=== PATIENT | male | born 1995 | race American Indian/Alaskan Native ===

== ENCOUNTER 2017-01-17 02:03 | Emergency (ER) | payer SELFPAY ==
[2017-01-17 03:02] VITALS: BP 100/75
[2017-01-17 03:56] LABS: Basophils % (Auto) 0.9 % (0.0-1.8); Eosinophils % (Auto) 11.7 % (0.0-4.3); Hematocrit 41.8 % (35.5-45.6); Mean Corpuscular HGB Conc 31 % (32-34); Platelet Count 227 K/mm3 (140-440); Red Blood Count 6.22 M/mm3 (3.65-5.03); Red Cell Distribution Width 17.9 % (13.2-15.2); White Blood Count 6.8 K/mm3 (4.5-11.0)
[2017-01-17 03:58] LABS: Mean Corpuscular Hemoglobin 21 pg (28-32); Mean Corpuscular Volume 67 fl (84-94)
[2017-01-17 04:08] LABS: Alanine Aminotransferase 13 units/L (7-56); Albumin/Globulin Ratio 1.3 %; Alkaline Phosphatase 56 units/L (35-129); Anion Gap 14 mmol/L; Blood Urea Nitrogen 13 mg/dL (9-20); Calcium 9.2 mg/dL (8.4-10.2); Carbon Dioxide 28 mmol/L (22-30); Chloride 102.8 mmol/L (98-107); Glucose 81 mg/dL (75-100); Lipase 17 units/L (13-60); Potassium 4.3 mmol/L (3.6-5.0); Sodium 140 mmol/L (137-145); Total Protein 7.2 g/dL (6.3-8.2)
[2017-01-17 05:04] LABS: Bilirubin,Urine NEG (Negative); Blood,Urine NEG (Negative); Ketones,Urine TR mg/dL (Negative); Leukocyte Esterase,Urine NEG (Negative); Mucus,Urine 2+ /HPF; Nitrite,Urine NEG (Negative)
== END 2017-01-17 04:00 | disposition left against medical advice (07) ==
LOC: ED 02:03
DX: M54.5 Low back pain (principal); Z53.21 Procedure and treatment not carried out due to patient leaving prior to being seen by health care provider
CPT/HCPCS: 36415; 80053; 81001; 83690; 85025

== ENCOUNTER 2017-01-28 16:12 | Emergency (ER) | payer SELFPAY ==
[2017-01-28] MEDS ORDERED: BOOSTRIX IM ONE (22:31)
[2017-01-28] MEDS ORDERED: MOTRIN PO ONE (22:32)
[2017-01-28] MEDS ORDERED: TRIPLE ANTIBIOTIC TP ONE (22:33)
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
[2017-01-28 23:31] VITALS: BP 105/64
== END 2017-01-28 23:31 | disposition home or self-care (01) ==
LOC: ED 16:12
DX: S51.812A Laceration without foreign body of left forearm, initial encounter (principal); Y08.89XA Assault by other specified means, initial encounter; Y93.9 Activity, unspecified; Y99.9 Unspecified external cause status; Y92.89 Other specified places as the place of occurrence of the external cause
CPT/HCPCS: 90471; 90715; A6250

== ENCOUNTER 2018-08-07 15:58 | Emergency (ER) | payer OTHER ==
[2018-08-07] MEDS ORDERED: CLARITIN PO ONE (16:05)
[2018-08-07] MEDS ORDERED: PROVENTIL IH ONE (16:05)
[2018-08-07] MEDS ORDERED: SOLU-Medrol IM ONE (16:05)
--- NOTE | 2018-08-07 16:05 | Emergency Department Report ---
Chief Complaint: Adult Asthma Stated Complaint: ASTHMA FLARE UP Time Seen by Provider: 08/07/18 16:04 - HPI History of Present Illness: WHEEZING TO ACC - Exam Vital Signs: Vital Signs 08/07/18 16:00 Temperature 98.0 F Pulse Rate 63 Respiratory 18 Rate Blood Pressure 115/75 O2 Sat by Pulse 97 Oximetry MSE screening note: Focused history and physical exam performed. Due to findings the following was ordered: ED Disposition for MSE Condition: Stable
--- NOTE | 2018-08-07 17:26 | XRay Report ---
PROCEDURE: XR CHEST ROUTINE 2V TECHNIQUE: Frontal and lateral chest radiographs. HISTORY: WHEEZING COMPARISONS: None FINDINGS: The cardiomediastinal silhouette is normal. No consolidation. There is bronchial wall thickening. No pleural effusion. No pneumothorax. No acute osseous abnormality. IMPRESSION: Findings which can be seen in bronchitis. This document is electronically signed by Domonique Bridges., August 07 2018 05:24:56 PM ET
--- NOTE | 2018-08-07 17:49 | Emergency Department Report ---
ED Asthma HPI - General Chief Complaint: Adult Asthma Stated Complaint: ASTHMA FLARE UP Time Seen by Provider: 08/07/18 16:04 Source: patient Mode of arrival: Ambulatory Limitations: No Limitations - History of Present Illness Initial Comments: This is a 33-year-old male with a history of asthma who presents to ED complaining of asthma attack that initially started about a week ago. Patient states symptoms have gotten worse. He states intermittent cough with white mucus. She states that he has an inhaler that has no relief. MD Complaint: "asthma attack", wheezing - Related Data Previous Rx's Medication Instructions Recorded Last Taken Type Bacitracin Zinc Oint [Antibiotic 1 applicatio TP BID #1 oint...g. 01/28/17 Unknown Rx Oint] Cephalexin [Keflex] 500 mg PO BID #14 capsule 01/28/17 Unknown Rx Ibuprofen [Motrin] 800 mg PO Q8HR PRN #30 tablet 01/28/17 Unknown Rx ALBUTEROL NEB's [Proventil 0.083% 2.5 mg IH PRN #1 pack 08/07/18 Unknown Rx NEBS] Benzonatate [Tessalon Perles] 100 mg PO Q8HR #20 capsule 08/07/18 Unknown Rx Nebulizer and Compressor [Portable 1 each MC PRN #1 each 08/07/18 Unknown Rx Nebulizer System] predniSONE [Deltasone] 20 mg PO QDAY #6 tab 08/07/18 Unknown Rx Allergies Allergy/AdvReac Type Severity Reaction Status Date / Time No Known Allergies Allergy Unverified 02/28/16 09:51 ED Review of Systems ROS: Stated complaint: ASTHMA FLARE UP Other details as noted in HPI Comment: All other systems reviewed and negative ED Past Medical Hx - Past Medical History Previous Medical History?: Yes Hx Asthma: Yes - Surgical History Past Surgical History?: No - Social History Smoking Status: Never Smoker Substance Use Type: None - Medications Home Medications: Home Medications Medication Instructions Recorded Confirmed Last Taken Type Bacitracin Zinc Oint [Antibiotic 1 applicatio TP BID #1 oint...g. 01/28/17 Unknown Rx Oint] Cephalexin [Keflex] 500 mg PO BID #14 capsule 01/28/17 Unknown Rx Ibuprofen [Motrin] 800 mg PO Q8HR PRN #30 tablet 01/28/17 Unknown Rx ALBUTEROL NEB's [Proventil 0.083% 2.5 mg IH PRN #1 pack 08/07/18 Unknown Rx NEBS] Benzonatate [Tessalon Perles] 100 mg PO Q8HR #20 capsule 08/07/18 Unknown Rx Nebulizer and Compressor [Portable 1 each MC PRN #1 each 08/07/18 Unknown Rx Nebulizer System] predniSONE [Deltasone] 20 mg PO QDAY #6 tab 08/07/18 Unknown Rx ED Physical Exam - General Limitations: No Limitations General appearance: alert, in no apparent distress - Head Head exam: Present: atraumatic, normocephalic - Eye Eye exam: Present: normal appearance - ENT ENT exam: Present: mucous membranes moist - Neck Neck exam: Present: normal inspection - Respiratory Respiratory exam: Present: wheezes (bilaterally). Absent: respiratory distress, rales, rhonchi, chest wall tenderness, accessory muscle use - Cardiovascular Cardiovascular Exam: Present: regular rate, normal rhythm. Absent: systolic murmur, diastolic murmur, rubs, gallop - GI/Abdominal GI/Abdominal exam: Present: soft, normal bowel sounds - Rectal Rectal exam: Present: deferred - Extremities Exam Extremities exam: Present: normal inspection - Back Exam Back exam: Present: normal inspection - Neurological Exam Neurological exam: Present: alert, oriented X3 - Psychiatric Psychiatric exam: Present: normal affect, normal mood - Skin Skin exam: Present: warm, dry, intact, normal color. Absent: rash ED Course Vital Signs 08/07/18 08/07/18 16:00 16:24 Temperature 98.0 F Pulse Rate 63 Pulse Rate [ 81 Throughout] Respiratory 18 Rate Respiratory 18 Rate [ Throughout] Blood Pressure 115/75 O2 Sat by Pulse 97 Oximetry ED Medical Decision Making - Radiology Data Radiology results: report reviewed, image reviewed HISTORY: WHEEZING COMPARISONS: None FINDINGS: The cardiomediastinal silhouette is normal. No consolidation. There is bronchial wall thickening. No pleural effusion. No pneumothorax. No acute osseous abnormality. IMPRESSION: Findings which can be seen in bronchitis. This document is electronically signed by Srinivasan Bridges., August 07 2018 05:24:56 PM ET Transcribed By: Dictated By: SRINIVASAN NUGENT MD Electronically Authenticated By: SRINIVASAN NUGENT MD Signed Date/Time: 08/07/18 1726 - Medical Decision Making 23-year-old male presents with asthma exacerbation (Mild) ED course: Patient received a breathing treatment, prednisone, in the ED. Chest x-ray ordered, chest x-ray shows no acute findings. Patient had no respiratory distress in the ED. Post treatment evaluation: Mild wheezing heard, no use of accessory muscles, I discussed with the patient to follow up with her primary care physician. I discussed with the patient will be going home on with albuterol inhaler as well as nebulizer Vital signs are normalized, patient is saturation at 99% on room air. I discussed with the patient is symptoms worsen to return to ED immediately. Critical care attestation.: If time is entered above; I have spent that time in minutes in the direct care of this critically ill patient, excluding procedure time. ED Disposition Clinical Impression: Asthma attack, Bronchitis Disposition: DC-01 TO HOME OR SELFCARE Is pt being admited?: No Does the pt Need Aspirin: No Condition: Stable Instructions: Asthma (ED), Chronic Bronchitis (ED) Additional Instructions: Make sure to follow up with the primary care physician as discussed. Take all your medications as you've been prescribed. If you have any worsening symptoms or develop new symptoms please return to ED i mmediately. Prescriptions: predniSONE [Deltasone] 20 mg PO QDAY #6 tab Nebulizer and Compressor [Portable Nebulizer System] 1 each MC PRN #1 each ALBUTEROL NEB's [Proventil 0.083% NEBS] 2.5 mg IH PRN #1 pack Benzonatate [Tessalon Perles] 100 mg PO Q8HR #20 capsule Referrals: LIBAN PERSAUD MD [Primary Care Provider] - 3-5 Days Forms: Accompanied Note, Work/School Release Form(ED) Time of Disposition: 17:50
[2018-08-07 21:18] VITALS: BP 115/75
== END 2018-08-07 18:07 | disposition home or self-care (01) ==
LOC: ED 15:58
DX: J45.909 Unspecified asthma, uncomplicated (principal)
CPT/HCPCS: 71046; 94640; 96372; 99283; J2930

== ENCOUNTER 2018-09-02 19:19 | Emergency (ER) | payer OTHER ==
[2018-09-02] MEDS ORDERED: ATROVENT IH ONE ×2 (19:31→20:47)
[2018-09-02] MEDS ORDERED: PROVENTIL IH ONE ×2 (19:31→20:47)
--- NOTE | 2018-09-02 19:31 | Emergency Department Report ---
Chief Complaint: Dyspnea/Respdistress Stated Complaint: ASTHMA/COUGH Time Seen by Provider: 09/02/18 19:29 - HPI History of Present Illness: pt states that he has a hx of asthma states he ran out of his medication two days ago uses only the nebulizer +cough +congestion no fever + seasonal allergies, has not been taking anything no PMHx no allergies to medications non smoker non drinker no drug use MSE screening note: Focused history and physical exam performed. Due to findings the following was ordered: neb tx, CXR
--- NOTE | 2018-09-02 20:25 | XRay Report ---
PROCEDURE: XR CHEST ROUTINE 2V TECHNIQUE: PA and lateral chest radiographs were obtained. HISTORY: Cough, wheezing COMPARISONS: None. FINDINGS: Heart: Normal. Mediastinum/Vessels: Normal. Lungs/Pleural space: Normal. Bony thorax: No acute osseous abnormality. IMPRESSION: Normal examination. This document is electronically signed by Karol Gomez MD., Sep 02 2018 08:23:10 PM ET
[2018-09-02] MEDS ORDERED: DELTASONE PO ONE (20:47)
--- NOTE | 2018-09-02 21:26 | Emergency Department Report ---
ED Shortness of Breath HPI - General Chief Complaint: Dyspnea/Respdistress Stated Complaint: ASTHMA/COUGH Time Seen by Provider: 09/02/18 19:29 Source: patient Mode of arrival: Ambulatory Limitations: No Limitations - History of Present Illness Initial Comments: 23-year-old male with a past medical history of asthma presents to the Hospital complaining of shortness of breath and intermittent productive cough 2 weeks. No fever reported the patient reports spilling hot. He's been taking home nebs at home without any improvement. Denies previous history of intubations. Patient was treated here in mid July for similar symptoms. Mild pain with cough reported. PMD: None - Related Data Previous Rx's Medication Instructions Recorded Last Taken Type Bacitracin Zinc Oint [Antibiotic 1 applicatio TP BID #1 oint...g. 01/28/17 Unknown Rx Oint] Cephalexin [Keflex] 500 mg PO BID #14 capsule 01/28/17 Unknown Rx Ibuprofen [Motrin] 800 mg PO Q8HR PRN #30 tablet 01/28/17 Unknown Rx Nebulizer and Compressor [Portable 1 each MC PRN #1 each 08/07/18 Unknown Rx Nebulizer System] predniSONE [Deltasone] 20 mg PO QDAY #6 tab 08/07/18 Unknown Rx ALBUTEROL Inhaler(NF) [VENTOLIN 2 puff IH Q4HRT PRN #1 inha 09/02/18 Unknown Rx Inhaler(NF)] ALBUTEROL NEB's [Proventil 0.083% 2.5 mg IH Q4HR PRN #30 neb 09/02/18 Unknown Rx NEBS] Benzonatate [Tessalon Perles] 100 mg PO Q8HR PRN #20 capsule 09/02/18 Unknown Rx predniSONE [Deltasone] 40 mg PO QDAY 5 Days tab 09/02/18 Unknown Rx Allergies Allergy/AdvReac Type Severity Reaction Status Date / Time No Known Allergies Allergy Unverified 02/28/16 09:51 ED Review of Systems ROS: Stated complaint: ASTHMA/COUGH Other details as noted in HPI Comment: All other systems reviewed and negative ED Past Medical Hx - Past Medical History Hx Asthma: Yes - Social History Smoking Status: Never Smoker Substance Use Type: None - Medications Home Medications: Home Medications Medication Instructions Recorded Confirmed Last Taken Type Bacitracin Zinc Oint [Antibiotic 1 applicatio TP BID #1 oint...g. 01/28/17 Unknown Rx Oint] Cephalexin [Keflex] 500 mg PO BID #14 capsule 01/28/17 Unknown Rx Ibuprofen [Motrin] 800 mg PO Q8HR PRN #30 tablet 01/28/17 Unknown Rx Nebulizer and Compressor [Portable 1 each MC PRN #1 each 08/07/18 Unknown Rx Nebulizer System] predniSONE [Deltasone] 20 mg PO QDAY #6 tab 08/07/18 Unknown Rx ALBUTEROL Inhaler(NF) [VENTOLIN 2 puff IH Q4HRT PRN #1 inha 09/02/18 Unknown Rx Inhaler(NF)] ALBUTEROL NEB's [Proventil 0.083% 2.5 mg IH Q4HR PRN #30 neb 09/02/18 Unknown Rx NEBS] Benzonatate [Tessalon Perles] 100 mg PO Q8HR PRN #20 capsule 09/02/18 Unknown Rx predniSONE [Deltasone] 40 mg PO QDAY 5 Days tab 09/02/18 Unknown Rx ED Physical Exam - General Limitations: No Limitations ED Course Vital Signs 09/02/18 09/02/18 09/02/18 19:21 19:36 20:00 Temperature 98.4 F Pulse Rate 96 H Pulse Rate [ 84 Throughout] Respiratory 18 19 Rate Respiratory 22 Rate [ Throughout] Blood Pressure 139/78 O2 Sat by Pulse 98 Oximetry 09/02/18 21:07 Temperature Pulse Rate Pulse Rate [ 82 Throughout] Respiratory Rate Respiratory 19 Rate [ Throughout] Blood Pressure O2 Sat by Pulse Oximetry - Reevaluation(s) Reevaluation #1: 09/02/18 22:33 pt sx improved with mild residual wheezing. he feels good enough for d/c ED Medical Decision Making - Radiology Data Radiology results: report reviewed PROCEDURE: XR CHEST ROUTINE 2V TECHNIQUE: PA and lateral chest radiographs were obtained. HISTORY: Cough, wheezing COMPARISONS: None. FINDINGS: Heart: Normal. Mediastinum/Vessels: Normal. Lungs/Pleural space: Normal. Bony thorax: No acute osseous abnormality. IMPRESSION: Normal examination. - Medical Decision Making asthma exacerbation improved with ed tx cxr neg plan d/c, meds, f/u - Differential Diagnosis asthma, bronchitis, pneumonia, Critical Care Time: No Critical care attestation.: If time is entered above; I have spent that time in minutes in the direct care of this critically ill patient, excluding procedure time. ED Disposition Clinical Impression: Acute asthma exacerbation Disposition: - TO HOME OR SELFCARE Is pt being admited?: No Condition: Stable Instructions: Asthma (ED) Additional Instructions: Take the medication as prescribed. Follow up with your doctor or the clinic/doctor provided. Return if symptoms worsen as indicated by your disc harge instructions Prescriptions: predniSONE [Deltasone] 40 mg PO QDAY 5 Days tab ALBUTEROL NEB's [Proventil 0.083% NEBS] 2.5 mg IH Q4HR PRN #30 neb PRN Reason: Wheezing Benzonatate [Tessalon Perles] 100 mg PO Q8HR PRN #20 capsule PRN Reason: Cough ALBUTEROL Inhaler(NF) [VENTOLIN Inhaler(NF)] 2 puff IH Q4HRT PRN #1 inha PRN Reason: Wheezing Referrals: LIBAN PERSAUD MD [Primary Care Provider] - 3-5 Days Time of Disposition: 22:36
[2018-09-02 22:45] VITALS: BP 98/65
== END 2018-09-02 22:44 | disposition home or self-care (01) ==
LOC: ED 19:19
DX: J45.901 Unspecified asthma with (acute) exacerbation (principal)
CPT/HCPCS: 71046; 94644; 99283; J7512

== ENCOUNTER 2018-09-15 04:24 | Emergency (ER) | payer SELFPAY ==
[2018-09-15] MEDS ORDERED: ATROVENT IH ONE ×2 (04:29→06:59)
[2018-09-15] MEDS ORDERED: PROVENTIL IH ONE (04:29)
[2018-09-15] MEDS ORDERED: DECADRON IM ONE (04:29)
--- NOTE | 2018-09-15 04:33 | Emergency Department Report ---
<PATRICIO MONTILLA - Last Filed: 09/15/18 04:32> ED Asthma HPI - General Chief Complaint: Dyspnea/Respdistress Stated Complaint: GERARDO Time Seen by Provider: 09/15/18 04:29 Source: patient Mode of arrival: Ambulatory Limitations: No Limitations - History of Present Illness MD Complaint: "asthma attack", shortness of breath, wheezing -: days(s) (1) Asthma History: childhood onset Severity: moderate Context: ran out of meds, allergen exposure (patient is around paint and drywall) Associated Symptoms: dry cough. denies: chest pain, hemoptysis, leg edema, syncope - Related Data Previous Rx's Medication Instructions Recorded Last Taken Type Bacitracin Zinc Oint [Antibiotic 1 applicatio TP BID #1 oint...g. 01/28/17 Unknown Rx Oint] Cephalexin [Keflex] 500 mg PO BID #14 capsule 01/28/17 Unknown Rx Ibuprofen [Motrin] 800 mg PO Q8HR PRN #30 tablet 01/28/17 Unknown Rx Nebulizer and Compressor [Portable 1 each MC PRN #1 each 08/07/18 Unknown Rx Nebulizer System] predniSONE [Deltasone] 20 mg PO QDAY #6 tab 08/07/18 Unknown Rx ALBUTEROL Inhaler(NF) [VENTOLIN 2 puff IH Q4HRT PRN #1 inha 09/02/18 Unknown Rx Inhaler(NF)] ALBUTEROL NEB's [Proventil 0.083% 2.5 mg IH Q4HR PRN #30 neb 09/02/18 Unknown Rx NEBS] Benzonatate [Tessalon Perles] 100 mg PO Q8HR PRN #20 capsule 09/02/18 Unknown Rx predniSONE [Deltasone] 40 mg PO QDAY 5 Days tab 09/02/18 Unknown Rx Albuterol Sulfate [Proventil Hfa] 2 puff IH Q4HR PRN #1 hfa.aer.ad 09/15/18 Unknown Rx predniSONE [Deltasone] 50 mg PO QDAY #5 tab 09/15/18 Unknown Rx Allergies Allergy/AdvReac Type Severity Reaction Status Date / Time No Known Allergies Allergy Unverified 02/28/16 09:51 ED Review of Systems Comment: All other systems reviewed and negative ED Past Medical Hx - Past Medical History Previous Medical History?: Yes Hx Asthma: Yes - Surgical History Past Surgical History?: No - Social History Smoking Status: Never Smoker Substance Use Type: None - Medications Home Medications: Home Medications Medication Instructions Recorded Confirmed Last Taken Type Bacitracin Zinc Oint [Antibiotic 1 applicatio TP BID #1 oint...g. 01/28/17 Unknown Rx Oint] Cephalexin [Keflex] 500 mg PO BID #14 capsule 01/28/17 Unknown Rx Ibuprofen [Motrin] 800 mg PO Q8HR PRN #30 tablet 01/28/17 Unknown Rx Nebulizer and Compressor [Portable 1 each MC PRN #1 each 08/07/18 Unknown Rx Nebulizer System] predniSONE [Deltasone] 20 mg PO QDAY #6 tab 08/07/18 Unknown Rx ALBUTEROL Inhaler(NF) [VENTOLIN 2 puff IH Q4HRT PRN #1 inha 09/02/18 Unknown Rx Inhaler(NF)] ALBUTEROL NEB's [Proventil 0.083% 2.5 mg IH Q4HR PRN #30 neb 09/02/18 Unknown Rx NEBS] Benzonatate [Tessalon Perles] 100 mg PO Q8HR PRN #20 capsule 09/02/18 Unknown Rx predniSONE [Deltasone] 40 mg PO QDAY 5 Days tab 09/02/18 Unknown Rx Albuterol Sulfate [Proventil Hfa] 2 puff IH Q4HR PRN #1 hfa.aer.ad 09/15/18 Unknown Rx predniSONE [Deltasone] 50 mg PO QDAY #5 tab 09/15/18 Unknown Rx ED Physical Exam - General Limitations: No Limitations General appearance: alert, in no apparent distress - Head Head exam: Present: atraumatic, normocephalic - Eye Eye exam: Present: normal appearance, PERRL, EOMI - ENT ENT exam: Present: mucous membranes moist - Neck Neck exam: Present: normal inspection - Respiratory Respiratory exam: Present: wheezes, prolonged expiratory. Absent: normal lung sounds bilaterally, respiratory distress, rales, rhonchi, stridor - Cardiovascular Cardiovascular Exam: Present: regular rate, normal rhythm, normal heart sounds. Absent: systolic murmur, diastolic murmur, rubs, gallop - GI/Abdominal GI/Abdominal exam: Present: soft, normal bowel sounds. Absent: distended, tenderness, guarding, rebound, rigid - Rectal Rectal exam: Present: deferred - Extremities Exam Extremities exam: Present: normal inspection - Back Exam Back exam: Present: normal inspection - Neurological Exam Neurological exam: Present: alert, oriented X3 - Psychiatric Psychiatric exam: Present: normal affect, normal mood - Skin Skin exam: Present: warm, dry, intact, normal color. Absent: rash ED Disposition Clinical Impression: Acute asthma exacerbation Disposition: - TO HOME OR SELFCARE Condition: Stable Instructions: Asthma (ED) Prescriptions: predniSONE [Deltasone] 50 mg PO QDAY #5 tab Albuterol Sulfate [Proventil Hfa] 2 puff IH Q4HR PRN #1 hfa.aer.ad PRN Reason: Wheezing Referrals: PRIMARY CARE, [Primary Care Provider] - 3-5 Days [facility] [Provider Group] - 3-5 Days <ERICKSON GREENBERG - Last Filed: 09/15/18 08:53> ED Review of Systems ROS: Stated complaint: GERARDO Other details as noted in HPI ED Course Vital Signs 09/15/18 09/15/18 09/15/18 04:35 05:26 05:40 Pulse Rate [ 72 80 Bilateral Throughout] Respiratory 24 20 Rate [Bilateral Throughout] O2 Sat by Pulse 100 Oximetry 09/15/18 09/15/18 07:51 08:10 Pulse Rate [ 78 83 Bilateral Throughout] Respiratory 20 20 Rate [Bilateral Throughout] O2 Sat by Pulse Oximetry ED Medical Decision Making - Medical Decision Making 23 yo M w/ asthma exacerbation. Pt signed out to me by Dr Montilla. Upon my examination, pt had received decadron and had 1-hr neb treatment in process. CXR negative. Pt still with coarse wheezing, so mag sulfate was given. Pt required additional 5 mg albuterol/ 0.5 mg atrovent neb. Pt able to ambulate around ED with nurse. No resp distress or desaturation afterward. Pt feels much better and wants to go home. Will d/c at this time. Critical Care Time: Yes Critical care time in (mins) excluding proc time.: 35 Critical care attestation.: If time is entered above; I have spent that time in minutes in the direct care of this critically ill patient, excluding procedure time. Critical Care Time: 35 minutes ED Disposition Is pt being admited?: No Time of Disposition: :53
--- NOTE | 2018-09-15 04:49 | XRay Report ---
PROCEDURE: XR CHEST 1V AP TECHNIQUE: Chest radiograph single view. HISTORY: GERARDO COMPARISONS: None . FINDINGS: Heart: Normal. Mediastinum/Vessels: Normal. Lungs/Pleural space: Normal. Bony thorax: No acute osseous abnormality. Life support devices: None. IMPRESSION: No acute cardiopulmonary abnormality. This document is electronically signed by Yulia Montilla DO., Sep 15 2018 04:47:54 AM ET
[2018-09-15] MEDS ORDERED: MAGNESIUM SULFATE 2GM/50ML 2 GM/50 ML BAG IV ONE (06:20)
[2018-09-15] MEDS: PROVENTIL IH ONE ×2 (07:47→07:53)
[2018-09-15 09:23] VITALS: BP 118/72
== END 2018-09-15 09:25 | disposition home or self-care (01) ==
LOC: ED 04:24
DX: J45.901 Unspecified asthma with (acute) exacerbation (principal)
CPT/HCPCS: 71045; 94640; 94644; 96365; 96372; 99283; J1100; J3475

== ENCOUNTER 2018-09-27 21:10 | Emergency (ER) | payer SELFPAY ==
[2018-09-27] MEDS ORDERED: ATROVENT IH ONE (21:16)
[2018-09-27] MEDS ORDERED: DECADRON IM ONE (21:16)
[2018-09-27] MEDS ORDERED: PROVENTIL IH ONE (21:16)
[2018-09-27 21:19] VITALS: BP 126/77
[2018-09-27] MEDS ORDERED: SOLU-Medrol IM ONE (21:36)
[2018-09-27] MEDS ORDERED: DUONEB *Not for PRN Use IH ONE (21:37)
--- NOTE | 2018-09-27 22:08 | XRay Report ---
PROCEDURE: XR CHEST ROUTINE 2V TECHNIQUE: PA and lateral chest radiographs were obtained. HISTORY: wheezing, SOB, hx of asthma COMPARISONS: CXR 09/15/2018, 09/02/2018. FINDINGS: Heart: Normal. Mediastinum/Vessels: Normal. Lungs/Pleural space: There is peribronchial wall thickening bilaterally in the hilar regions, unchan ged, likely due to the history of asthma. Bony thorax: No acute osseous abnormality. IMPRESSION: No acute cardiopulmonary process seen.. No change.The peribronchial wall thickening bila terally is likely due to reactive airway disease and chronic This document is electronically signed by Mary Tadeo MD., September 27 2018 10:06:40 PM ET
--- NOTE | 2018-09-27 22:59 | Emergency Department Report ---
ED Shortness of Breath HPI - General Chief Complaint: Dyspnea/Respdistress Stated Complaint: WHEEZING/ASTHMA Source: patient Mode of arrival: Ambulatory Limitations: No Limitations - History of Present Illness Initial Comments: Patient is a 23-year-old -[place] male with a history of asthma who presents to the ED with complaint of acute onset persistent shortness of breath, wheezing and dry cough for the last 3 days. Patient states that she has a nebulizer machine at home but no medications. Patient also states that she he does not have albuterol inhaler. Patient states that in the last 12 hours the shortness of breath, wheezing and dry cough have persisted and worsened. 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 Patient denies chest pain, dizziness, fever, chills, nausea, vomiting, abdominal pain, change in vision, nasal and sinus congestion or sore throat. MD Complaint: shortness of breath, cough, "asthma attack" -: Sudden, days(s) (3) Radiation: other (None) Severity: moderate Quality: dull (and tightness) Consistency: intermittent Improves With: nothing Worsens With: coughing Known History Of: asthma Context: recent URI, allergen exposure Associated Symptoms: denies other symptoms Treatments Prior to Arrival: none - Related Data Home Oxygen Therapy: No Previous Rx's Medication Instructions Recorded Last Taken Type Bacitracin Zinc Oint [Antibiotic 1 applicatio TP BID #1 oint...g. 01/28/17 Unknown Rx Oint] Cephalexin [Keflex] 500 mg PO BID #14 capsule 01/28/17 Unknown Rx Ibuprofen [Motrin] 800 mg PO Q8HR PRN #30 tablet 01/28/17 Unknown Rx Nebulizer and Compressor [Portable 1 each MC PRN #1 each 08/07/18 Unknown Rx Nebulizer System] predniSONE [Deltasone] 20 mg PO QDAY #6 tab 08/07/18 Unknown Rx ALBUTEROL Inhaler(NF) [VENTOLIN 2 puff IH Q4HRT PRN #1 inha 09/02/18 Unknown Rx Inhaler(NF)] Albuterol Sulfate [Proventil Hfa] 2 puff IH Q4HR PRN #1 hfa.aer.ad 09/15/18 Unknown Rx predniSONE [Deltasone] 50 mg PO QDAY #5 tab 09/15/18 Unknown Rx ALBUTEROL NEB's [Proventil 0.083% 2.5 mg IH Q4HR PRN #75 neb 09/27/18 Unknown Rx NEBS] Albuterol Sulfate [Proventil Hfa] 1 - 2 puff IH Q4H PRN #1 hfa.aer.ad 09/27/18 Unknown Rx Benzonatate [Tessalon Perles] 100 mg PO Q8HR PRN #30 capsule 09/27/18 Unknown Rx predniSONE [Deltasone] 60 mg PO QDAY 5 Days #15 tab 09/27/18 Unknown Rx Allergies Allergy/AdvReac Type Severity Reaction Status Date / Time No Known Allergies Allergy Unverified 02/28/16 09:51 ED Review of Systems ROS: Stated complaint: WHEEZING/ASTHMA Other details as noted in HPI Comment: All other systems reviewed and negative Constitutional: denies: chills, fever Eyes: denies: eye pain, eye discharge, vision change ENT: denies: ear pain, throat pain Respiratory: cough, shortness of breath, wheezing Cardiovascular: denies: chest pain, palpitations Endocrine: no symptoms reported, see HPI. denies: excessive sweating, flushing, intolerance to heat, increased thirst, unexplained weight loss Gastrointestinal: denies: abdominal pain, nausea, vomiting, diarrhea Genitourinary: denies: urgency, dysuria, frequency Musculoskeletal: denies: back pain, joint swelling, arthralgia Skin: denies: rash, lesions Neurological: denies: headache, weakness, paresthesias Psychiatric: denies: anxiety, depression Hematological/Lymphatic: denies: easy bleeding, easy bruising ED Past Medical Hx - Past Medical History Previous Medical History?: Yes Hx Asthma: Yes - Surgical History Past Surgical History?: No - Social History Smoking Status: Never Smoker Substance Use Type: None - Medications Home Medications: Home Medications Medication Instructions Recorded Confirmed Last Taken Type Bacitracin Zinc Oint [Antibiotic 1 applicatio TP BID #1 oint...g. 01/28/17 Unknown Rx Oint] Cephalexin [Keflex] 500 mg PO BID #14 capsule 01/28/17 Unknown Rx Ibuprofen [Motrin] 800 mg PO Q8HR PRN #30 tablet 01/28/17 Unknown Rx Nebulizer and Compressor [Portable 1 each MC PRN #1 each 08/07/18 Unknown Rx Nebulizer System] predniSONE [Deltasone] 20 mg PO QDAY #6 tab 08/07/18 Unknown Rx ALBUTEROL Inhaler(NF) [VENTOLIN 2 puff IH Q4HRT PRN #1 inha 09/02/18 Unknown Rx Inhaler(NF)] Albuterol Sulfate [Proventil Hfa] 2 puff IH Q4HR PRN #1 hfa.aer.ad 09/15/18 Unknown Rx predniSONE [Deltasone] 50 mg PO QDAY #5 tab 09/15/18 Unknown Rx ALBUTEROL NEB's [Proventil 0.083% 2.5 mg IH Q4HR PRN #75 neb 09/27/18 Unknown Rx NEBS] Albuterol Sulfate [Proventil Hfa] 1 - 2 puff IH Q4H PRN #1 hfa.aer.ad 09/27/18 Unknown Rx Benzonatate [Tessalon Perles] 100 mg PO Q8HR PRN #30 capsule 09/27/18 Unknown Rx predniSONE [Deltasone] 60 mg PO QDAY 5 Days #15 tab 09/27/18 Unknown Rx ED Physical Exam - General Limitations: No Limitations General appearance: alert, in no apparent distress - Head Head exam: Present: atraumatic, normocephalic, normal inspection - Eye Eye exam: Present: normal appearance, PERRL, EOMI. Absent: periorbital swelling, periorbital tenderness - ENT ENT exam: Present: normal exam, mucous membranes moist. Absent: TM's normal bilaterally, normal external ear exam - Neck Neck exam: Present: normal inspection, full ROM. Absent: tenderness, meningismus, lymphadenopathy, thyromegaly - Respiratory Respiratory exam: Present: wheezes (moderately diffuse coarse wheezes throughout the lung). Absent: respiratory distress, chest wall tenderness, accessory muscle use, decreased breath sounds, prolonged expiratory - Cardiovascular Cardiovascular Exam: Present: regular rate, normal rhythm, normal heart sounds. Absent: bradycardia, tachycardia, systolic murmur, diastolic murmur, rubs, gallop - GI/Abdominal GI/Abdominal exam: Present: soft, normal bowel sounds. Absent: tenderness, guarding, rebound, hyperactive bowel sounds, hypoactive bowel sounds - Rectal Rectal exam: Present: deferred - Extremities Exam Extremities exam: Present: normal inspection, full ROM, normal capillary refill - Back Exam Back exam: Present: normal inspection, full ROM. Absent: tenderness, CVA tenderness (R), CVA tenderness (L), muscle spasm, vertebral tenderness - Neurological Exam Neurological exam: Present: alert, oriented X3, CN II-XII intact, normal gait, reflexes normal - Psychiatric Psychiatric exam: Present: normal affect, normal mood - Skin Skin exam: Present: warm, dry, intact, normal color. Absent: rash ED Course Vital Signs 09/27/18 21:18 Temperature 98.2 F Pulse Rate 84 Respiratory 18 Rate Blood Pressure 126/77 O2 Sat by Pulse 95 Oximetry - Reevaluation(s) Reevaluation #1: 09/27/18 23:03 Patient is alert and oriented 3 and is not in distress. Patient received 2 DuoNeb treatments in the ED with Solu-Medrol injection. Chest x-ray shows no acute cardiopulmonary abnormalities but a pattern of reactive airway disease which is chronic. On reevaluation, the patient's wheezing has significantly improved, oxygen saturation is 95% in room air. Patient was discharged home on albuterol inhaler, albuterol nebulizer, prednisone and Tessalon Perles for cough. Patient was advised to return to the ED immediately if his symptoms get worse, otherwise follow up with the primary care physician at [facility] in 2-3 days. 09/27/18 23:07 ED Medical Decision Making - Radiology Data Radiology results: report reviewed, image reviewed No acute cardiopulmonary abnormalities. Chronic reactive airway disease pattern - Medical Decision Making Patient is alert and oriented 3 and is not in distress. Patient received 2 Du oNeb treatments in the ED with Solu-Medrol injection. Chest x-ray shows no acute cardiopulmonary abnormalities but a pattern of reactive airway disease which is chronic. On reevaluation, the patient's wheezing has significantly improved, oxygen saturation is 95% in room air. Patient was discharged home on albuterol inhaler, albuterol nebulizer, prednisone and Tessalon Perles for cough. Patient was advised to return to the ED immediately if his symptoms get worse, otherwise follow up with the primary care physician at [facility] in 2-3 days. - Differential Diagnosis acute asthma exacerbation, bronchitis, shortness of breath Critical care attestation.: If time is entered above; I have spent that time in minutes in the direct care of this critically ill patient, excluding procedure time. ED Disposition Clinical Impression: Shortness of breath, Acute bronchitis with asthma with acute exacerbation Disposition: TO HOME OR SELFCARE Is pt being admited?: No Does the pt Need Aspirin: No Condition: Stable Instructions: Asthma (ED), Acute Bronchitis (ED), Dyspnea (ED) Additional Instructions: Take medications with food, drink plenty of fluids and follow up with your primary care physician at [facility] in 2-3 days for reevaluation. Return to the ED immediately if symptoms get worse. Prescriptions: predniSONE [Deltasone] 60 mg PO QDAY 5 Days #15 tab ALBUTEROL NEB's [Proventil 0.083% NEBS] 2.5 mg IH Q4HR PRN #75 neb PRN Reason: Wheezing Albuterol Sulfate [Proventil Hfa] 1 - 2 puff IH Q4H PRN #1 hfa.aer.ad PRN Reason: Dyspnea Benzonatate [Tessalon Perles] 100 mg PO Q8HR PRN #30 capsule PRN Reason: Cough Referrals: [facility] [Outside] - 3-5 Days Time of Disposition: 22:59 Print Language: FIJIAN
== END 2018-09-27 23:10 | disposition home or self-care (01) ==
LOC: ED 21:10
DX: J45.901 Unspecified asthma with (acute) exacerbation (principal); J40 Bronchitis, not specified as acute or chronic
CPT/HCPCS: 71046; 94640; 96372; 99283; J1100; J2930

== ENCOUNTER 2018-10-10 20:48 | Emergency (ER) | payer SELFPAY ==
[2018-10-10] MEDS ORDERED: DUONEB *Not for PRN Use IH ONE (20:55)
[2018-10-10 20:56] VITALS: BP 123/72
[2018-10-10] MEDS ORDERED: DECADRON IM ONE (21:04)
--- NOTE | 2018-10-10 21:04 | Emergency Department Report ---
Blank Doc - Documentation Documentation: This is a 23-year-old male that presents with SOB and wheezing. This initial assessment/diagnostic orders/clinical plan/treatment(s) is/are subject to change based on patient's health status, clinical progression and re- assessment by fellow clinical providers in the ED. Further treatment and workup at subsequent clinical providers discretion. Patient/guardians urged not to elope from the ED as their condition may be serious if not clinically assessed and managed. Initial orders include: 1- Patient sent to [facility] for further evaluation and treatment 2- breathing treatment/steroids 3- CXR
--- NOTE | 2018-10-10 22:01 | XRay Report ---
PROCEDURE: XR CHEST ROUTINE 2V TECHNIQUE: PA and lateral chest radiographs were obtained. HISTORY: sob/wheezing COMPARISONS: September 27, 2018. FINDINGS: Heart: Normal. Mediastinum/Vessels: Normal. Lungs/Pleural space: Normal. Bony thorax: No acute osseous abnormality. IMPRESSION: Normal examination. This document is electronically signed by Chaim Logan MD., October 10 2018 09:58:53 PM ET
== END 2018-10-11 00:08 | disposition left against medical advice (07) ==
LOC: ED 20:48
DX: J45.909 Unspecified asthma, uncomplicated (principal); Z53.21 Procedure and treatment not carried out due to patient leaving prior to being seen by health care provider
CPT/HCPCS: 71046; 94640

== ENCOUNTER 2018-10-12 08:36 | Emergency (ER) | payer OTHER ==
[2018-10-12] MEDS ORDERED: PROVENTIL IH ONE (08:39)
[2018-10-12] MEDS ORDERED: SOLU-Medrol IM ONE (08:39)
--- NOTE | 2018-10-12 08:39 | Emergency Department Report ---
Minor Respiratory - HPI Chief Complaint: Adult Asthma Stated Complaint: ASTHMA Time Seen by Provider: 10/12/18 08:39 Duration: 5 Days Pain Location: Chest Severity: mild Minor Respiratory: Yes Able to Tolerate Fluids, Yes Cough, No Rhinorrhea, No Sore Throat, No Ear Pain, No Sick Contacts, No Hemoptysis, No Chest Pain, No Shortness of Breath, No Fever Other History: 23 YO TO ER, NUMEROUS TIMES, WITH ASTHMA. I SUSPECT HE IS NOT GETTING HIS RX FILLED. NO FEVER. NO SPUTUM ED Review of Systems ROS: Stated complaint: ASTHMA Other details as noted in HPI Comment: All other systems reviewed and negative ED Past Medical Hx - Past Medical History Previous Medical History?: Yes Hx Asthma: Yes - Surgical History Additional Surgical History: Testicle Torsion - Family History Family history: no significant - Social History Smoking Status: Never Smoker Substance Use Type: None - Medications Home Medications: Home Medications Medication Instructions Recorded Confirmed Last Taken Type ALBUTEROL NEB's [Proventil 0.083% 2.5 mg IH Q4HR PRN #75 neb 10/12/18 Unknown Rx NEBS] Albuterol Sulfate [Proair 90 mcg IH Q4H PRN #1 aer.pow.ba 10/12/18 Unknown Rx Respiclick] Fluticasone/Salmeterol [Advair 1 puff IH BID #1 disk.w.dev 10/12/18 Unknown Rx Diskus 250-50 mcg] Nebulizer and Compressor [Portable 1 each MC PRN #1 each 10/12/18 Unknown Rx Nebulizer System] predniSONE [Deltasone] 60 mg PO QDAY 5 Days #15 tab 10/12/18 Unknown Rx Minor Respiratory Exam - Exam General: Vital signs noted. No distress. Alert and acting appropriately. HEENT: Yes Moist Mucous Membranes, No Pharyngeal Erythema, No Pharyngeal Exudates Ear: Neither TM Bulge, Neither TM Erythema, Neither EAC Pain, Neither EAC Discharge Neck: Yes Supple, No Adenopathy Lungs: Yes Good Air Exchange, No Wheezes, No Ronchi, No Stridor, No Cough, No Retractions, No Use of Accessory Muscles, No Other Abnormal Lung Sounds Heart: Yes Regular, No Murmur Abdomen: No Tenderness Skin: No Rash, No Edema Neurologic: Alert and oriented, no deficits. Musculoskeletal: Unremarkable. ED Medical Decision Making - Medical Decision Making Vital Signs 10/12/18 10/12/18 08:40 09:16 Temperature 98.0 F Pulse Rate 75 Pulse Rate [ 86 Anterior Bilateral Throughout] Respiratory 18 Rate Respiratory 18 Rate [Anterior Bilateral Throughout] Blood Pressure 124/67 O2 Sat by Pulse 99 Oximetry MEDICATED IN ER FOR WHEEZING IMPROVEMENT P MEDS NO FEVER AMBULATORY WITHOUT SOB OR CP DISCUSSED FOLLOW UP AND GETTING MEDS- GIVEN [facility] INFORMATION Critical care attestation.: If time is entered above; I have spent that time in minutes in the direct care of this critically ill patient, excluding procedure time. ED Disposition Clinical Impression: Asthma, Current non-adherence to medical treatment Disposition: DC- TO HOME OR SELFCARE Is pt being admited?: No Does the pt Need Aspirin: No Condition: Stable Instructions: Asthma (ED) Additional Instructions: FOLLOW UP WITH PCP FOR YOUR MEDS REFERRAL BELOW Prescriptions: Fluticasone/Salmeterol [Advair Diskus 250-50 mcg] 1 puff IH BID #1 disk.w.dev predniSONE [Deltasone] 60 mg PO QDAY 5 Days #15 tab Nebulizer and Compressor [Portable Nebulizer System] 1 each MC PRN #1 each Albuterol Sulfate [Proair Respiclick] 90 mcg IH Q4H PRN #1 aer.pow.ba PRN Reason: Wheezing ALBUTEROL NEB's [Proventil 0.083% NEBS] 2.5 mg IH Q4HR PRN #75 neb PRN Reason: Wheezing Referrals: MONET JORGE MD [Staff Physician] - 3-5 Days Time of Disposition: 09:04
[2018-10-12] MEDS ORDERED: CLARITIN PO ONE (08:40)
[2018-10-12 08:41] VITALS: BP 124/67
== END 2018-10-12 09:40 | disposition home or self-care (01) ==
LOC: ED 08:36
DX: J45.909 Unspecified asthma, uncomplicated (principal)
CPT/HCPCS: 94640; 96372; 99282; J2930

== ENCOUNTER 2018-11-09 00:06 | Emergency (ER) | payer SELFPAY ==
[2018-11-09 00:12] VITALS: BP 113/71
[2018-11-09] MEDS ORDERED: DUONEB *Not for PRN Use IH ONE ×2 (00:13→00:14)
--- NOTE | 2018-11-09 00:42 | XRay Report ---
CHEST 2 VIEWS INDICATION / CLINICAL INFORMATION: cough and wheezing. COMPARISON: 10/10/2018 FINDINGS: SUPPORT DEVICES: None. HEART / MEDIASTINUM: No significant abnormality. LUNGS / PLEURA: No significant pulmonary or pleural abnormality. No pneumothorax. ADDITIONAL FINDINGS: No significant additional findings. IMPRESSION: 1. No acute findings. Signer Name: Emeka Bowie MD Signed: 11/09/2018 12:37 AM Workstation Name: [id number]
[2018-11-09] MEDS ORDERED: PROVENTIL IH ONE (02:31)
[2018-11-09] MEDS ORDERED: IBUPROFEN PO ONE (02:31)
[2018-11-09] MEDS ORDERED: DECADRON IM ONE (02:31)
--- NOTE | 2018-11-09 02:45 | Emergency Department Report ---
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 MD Complaint: cough, other (wheezing ) Onset/Timin -: days(s) Severity: moderate Severity scale (0 -10): 5 Consistency: constant Improves With: nothing Worsens With: activity Associated Symptoms: shortness of breath - Related Data Previous Rx's Medication Instructions Recorded Last Taken Type ALBUTEROL NEB's [Proventil 0.083% 2.5 mg IH Q4HR PRN #75 neb 10/12/18 Unknown Rx NEBS] Albuterol Sulfate [Proair 90 mcg IH Q4H PRN #1 aer.pow.ba 10/12/18 Unknown Rx Respiclick] Fluticasone/Salmeterol [Advair 1 puff IH BID #1 disk.w.dev 10/12/18 Unknown Rx Diskus 250-50 mcg] Nebulizer and Compressor [Portable 1 each MC PRN #1 each 10/12/18 Unknown Rx Nebulizer System] predniSONE [Deltasone] 60 mg PO QDAY 5 Days #15 tab 10/12/18 Unknown Rx ALBUTEROL Inhaler (OR & NICU) 2 puff IH QID PRN #1 inhalation 11/09/18 Unknown Rx [ProAir HFA Inhaler] ALBUTEROL NEB's [Proventil 0.083% 2.5 mg IH Q4H PRN #25 vial 11/09/18 Unknown Rx NEBS] Azithromycin [Zithromax Z-FABIAN] 250 mg PO DAILY #6 tab 11/09/18 Unknown Rx Benzonatate [Tessalon Perles] 100 mg PO Q8HR PRN #30 capsule 11/09/18 Unknown Rx Ibuprofen [Motrin 800 MG tab] 800 mg PO Q8HR PRN #30 tablet 11/09/18 Unknown Rx dexAMETHasone [Decadron] 4 mg PO BID 2 Days #4 tablet 11/09/18 Unknown Rx Allergies Allergy/AdvReac Type Severity Reaction Status Date / Time No Known Allergies Allergy Verified 11/09/18 00:12 ED Review of Systems ROS: Stated complaint: ASTHMA/GERARDO/CHEST PAIN Other details as noted in HPI Constitutional: denies: chills, fever Eyes: denies: eye pain, eye discharge, vision change ENT: denies: ear pain, throat pain Respiratory: cough, shortness of breath, wheezing Cardiovascular: denies: chest pain, palpitations Endocrine: no symptoms reported Gastrointestinal: denies: abdominal pain, nausea, diarrhea Genitourinary: denies: urgency, dysuria Musculoskeletal: denies: back pain, joint swelling, arthralgia Skin: denies: rash, lesions Neurological: denies: headache, weakness, paresthesias Psychiatric: denies: anxiety, depression Hematological/Lymphatic: denies: easy bleeding, easy bruising ED Past Medical Hx - Past Medical History Previous Medical History?: Yes Hx Asthma: Yes - Surgical History Past Surgical History?: Yes Additional Surgical History: Testicle Torsion - Social History Smoking Status: Never Smoker Substance Use Type: Alcohol - Medications Home Medications: Home Medications Medication Instructions Recorded Confirmed Last Taken Type ALBUTEROL NEB's [Proventil 0.083% 2.5 mg IH Q4HR PRN #75 neb 10/12/18 Unknown Rx NEBS] Albuterol Sulfate [Proair 90 mcg IH Q4H PRN #1 aer.pow.ba 10/12/18 Unknown Rx Respiclick] Fluticasone/Salmeterol [Advair 1 puff IH BID #1 disk.w.dev 10/12/18 Unknown Rx Diskus 250-50 mcg] Nebulizer and Compressor [Portable 1 each MC PRN #1 each 10/12/18 Unknown Rx Nebulizer System] predniSONE [Deltasone] 60 mg PO QDAY 5 Days #15 tab 10/12/18 Unknown Rx ALBUTEROL Inhaler (OR & NICU) 2 puff IH QID PRN #1 inhalation 11/09/18 Unknown Rx [ProAir HFA Inhaler] ALBUTEROL NEB's [Proventil 0.083% 2.5 mg IH Q4H PRN #25 vial 11/09/18 Unknown Rx NEBS] Azithromycin [Zithromax Z-FABIAN] 250 mg PO DAILY #6 tab 11/09/18 Unknown Rx Benzonatate [Tessalon Perles] 100 mg PO Q8HR PRN #30 capsule 11/09/18 Unknown Rx Ibuprofen [Motrin 800 MG tab] 800 mg PO Q8HR PRN #30 tablet 11/09/18 Unknown Rx dexAMETHasone [Decadron] 4 mg PO BID 2 Days #4 tablet 11/09/18 Unknown Rx ED Physical Exam - General Limitations: No Limitations General appearance: alert, in no apparent distress - Head Head exam: Present: atraumatic, normocephalic - Eye Eye exam: Present: normal appearance, PERRL, EOMI Pupils: Present: normal accommodation - ENT ENT exam: Present: normal orophraynx, mucous membranes moist, TM's normal bilaterally, normal external ear exam - Neck Neck exam: Present: normal inspection, full ROM. Absent: tenderness, lymphadenopathy, thyromegaly - Respiratory Respiratory exam: Present: wheezes (exp wheezes bilat ), chest wall tenderness (right lateral chest wall ), prolonged expiratory. Absent: respiratory distress, rales, rhonchi, stridor, accessory muscle use - Cardiovascular Cardiovascular Exam: Present: regular rate, normal rhythm, normal heart sounds. Absent: systolic murmur, diastolic murmur, rubs, gallop - GI/Abdominal GI/Abdominal exam: Present: soft, normal bowel sounds. Absent: distended, tenderness, bruit, hernia - Rectal Rectal exam: Present: deferred - Extremities Exam Extremities exam: Present: normal inspection, full ROM, normal capillary refill - Back Exam Back exam: Present: normal inspection, full ROM. Absent: tenderness, CVA tenderness (R), CVA tenderness (L), muscle spasm, paraspinal tenderness, vertebral tenderness - Neurological Exam Neurological exam: Present: alert, oriented X3, CN II-XII intact, normal gait - Psychiatric Psychiatric exam: Present: normal affect, normal mood - Skin Skin exam: Present: warm, dry, intact, normal color. Absent: rash ED Course Vital Signs 11/09/18 00:08 Temperature 98.4 F Pulse Rate 80 Respiratory 24 Rate Blood Pressure 113/71 O2 Sat by Pulse 98 Oximetry ED Medical Decision Making - Radiology Data Radiology results: report reviewed, image reviewed Ordering Physician: MARI BORDEN MD Date of Service: 11/09/18 Procedure(s): XR chest routine 2V Accession Number(s): [id number] cc: ED MD MICHI Fluoro Time In Minutes: CHEST 2 VIEWS INDICATION / CLINICAL INFORMATION: cough and wheezing. COMPARISON: 10/10/2018 FINDINGS: SUPPORT DEVICES: None. HEART / MEDIASTINUM: No significant abnormality. LUNGS / PLEURA: No significant pulmonary or pleural abnormality. No pneumothorax. ADDITIONAL FINDINGS: No significant additional findings. IMPRESSION: 1. No acute findings. Signer Name: Emeka Bowie MD Signed: 11/09/2018 12:37 AM Workstation Name: [email or web address] Transcribed By: GA Dictated By: Emeka Bowie MD Electronically Authenticated By: Emeka Bowie MD Signed Date/Time: 11/09/1836 DD/ TD/TT: - Medical Decision Making breathing improved pt is ambulatory in ed without increases sob or wheezing, cxr noramal no infiltrates no opacities, plan tx for bronchits dc to home with rx for albuterol , decadron, ibuprofen, Zpack, tessalon pearls, pt will follow up with pcp in 2-3 days , Critical care attestation.: If time is entered above; I have spent that time in minutes in the direct care of this critically ill patient, excluding procedure time. ED Disposition Clinical Impression: Bronchitis Asthma Qualifiers: Asthma severity: unspecified severity Asthma persistence: intermittent Asthma complication type: unspecified Qualified Code(s): J45.20 - Mild intermittent asthma, uncomplicated Disposition: DC-01 TO HOME OR SELFCARE Is pt being admited?: No Does the pt Need Aspirin: No Condition: Stable Instructions: Chronic Bronchitis (ED), Asthma (ED) Prescriptions: dexAMETHasone [Decadron] 4 mg PO BID 2 Days #4 tablet Ibuprofen [Motrin 800 MG tab] 800 mg PO Q8HR PRN #30 tablet PRN Reason: Pain , Severe (7-10) ALBUTEROL Inhaler (OR & NICU) [ProAir HFA Inhaler] 2 puff IH QID PRN #1 inhalation PRN Reason: Shortness Of Breath ALBUTEROL NEB's [Proventil 0.083% NEBS] 2.5 mg IH Q4H PRN #25 vial PRN Reason: shortness of breath wheezing Benzonatate [Tessalon Perles] 100 mg PO Q8HR PRN #30 capsule PRN Reason: Cough Azithromycin [Zithromax Z-FABIAN] 250 mg PO DAILY #6 tab Referrals: LIBAN PERSAUD MD [Primary Care Provider] - 3-5 Days Forms: Work/School Release Form(ED) Time of Disposition: 04:06
== END 2018-11-09 04:10 | disposition home or self-care (01) ==
LOC: ED 00:06
DX: J40 Bronchitis, not specified as acute or chronic (principal); J45.20 Mild intermittent asthma, uncomplicated; Z79.899 Other long term (current) drug therapy
CPT/HCPCS: 71046; 96372; 99283; J1100

== ENCOUNTER 2018-11-16 23:16 | Emergency (ER) | payer SELFPAY ==
[2018-11-16] MEDS ORDERED: MAGNESIUM SULFATE 2GM/50ML 2 GM/50 ML BAG IV ONE (23:36)
--- NOTE | 2018-11-16 23:36 | Emergency Department Report ---
ED Shortness of Breath HPI - General Chief Complaint: Adult Asthma Stated Complaint: DIFFICULTY IN BREATHING Time Seen by Provider: 11/16/18 23:32 Source: patient, EMS Mode of arrival: Stretcher Limitations: No Limitations - History of Present Illness Initial Comments: Patient is a 23-year-old male presents emergency room with complaints of difficulty breathing and shortness of breath and asthma attack. Patient brought in by EMS. Patient was initially hypoxic with EMS. Patient placed on oxygen and given IV peter all and Medrol in route. Patient states he is a little bit better but he still having difficulties breathing. Patient states his shortness of breath is better with rest and worse with exertion patient states his symptoms are severe. MD Complaint: shortness of breath, cough, "asthma attack" -: Sudden Severity: severe Consistency: constant Improves With: rest, bronchodilators, upright position, medication Worsens With: lying flat, exertion Known History Of: asthma Associated Symptoms: cough Treatments Prior to Arrival: oxygen, bronchodilator, other - Related Data Home Oxygen Therapy: No Previous Rx's Medication Instructions Recorded Last Taken Type ALBUTEROL Inhaler (OR & NICU) 2 puff IH QID PRN #1 inhalation 11/09/18 Unknown Rx [ProAir HFA Inhaler] Allergies Allergy/AdvReac Type Severity Reaction Status Date / Time No Known Allergies Allergy Verified 11/09/18 00:12 ED Review of Systems ROS: Stated complaint: DIFFICULTY IN BREATHING Other details as noted in HPI Constitutional: denies: chills, fever Eyes: denies: eye pain, eye discharge, vision change ENT: denies: ear pain, throat pain Respiratory: cough, shortness of breath, wheezing Cardiovascular: denies: chest pain, palpitations Endocrine: no symptoms reported Gastrointestinal: denies: abdominal pain, nausea, diarrhea Genitourinary: denies: urgency, dysuria Musculoskeletal: denies: back pain, joint swelling, arthralgia Skin: denies: rash, lesions Neurological: denies: headache, weakness, paresthesias Psychiatric: denies: anxiety, depression Hematological/Lymphatic: denies: easy bleeding, easy bruising ED Past Medical Hx - Past Medical History Previous Medical History?: Yes Hx Asthma: Yes - Surgical History Past Surgical History?: Yes Additional Surgical History: Testicle Torsion - Family History Family history: no significant - Social History Smoking Status: Never Smoker Substance Use Type: None - Medications Home Medications: Home Medications Medication Instructions Recorded Confirmed Last Taken Type ALBUTEROL Inhaler (OR & NICU) 2 puff IH QID PRN #1 inhalation 11/09/18 11/16/18 Unknown Rx [ProAir HFA Inhaler] ED Physical Exam - General Limitations: No Limitations General appearance: alert, in distress - Head Head exam: Present: atraumatic, normocephalic - Eye Eye exam: Present: normal appearance - ENT ENT exam: Present: mucous membranes moist - Neck Neck exam: Present: normal inspection - Respiratory Respiratory exam: Present: respiratory distress, wheezes - Cardiovascular Cardiovascular Exam: Present: regular rate, normal rhythm. Absent: systolic murmur, diastolic murmur, rubs, gallop - GI/Abdominal GI/Abdominal exam: Present: soft, normal bowel sounds. Absent: distended, tenderness - Rectal Rectal exam: Present: deferred - Extremities Exam Extremities exam: Present: normal inspection - Back Exam Back exam: Present: normal inspection - Neurological Exam Neurological exam: Present: alert, oriented X3 - Psychiatric Psychiatric exam: Present: normal affect, normal mood - Skin Skin exam: Present: warm, dry, intact, normal color. Absent: rash ED Course Vital Signs 11/16/18 11/16/18 11/16/18 23:21 23:23 23:31 Pulse Rate 87 Respiratory 22 Rate Blood Pressure 136/76 136/76 O2 Sat by Pulse 99 99 99 Oximetry 11/16/18 11/17/18 11/17/18 23:45 00:00 00:15 Pulse Rate Respiratory Rate Blood Pressure 136/76 135/62 135/62 O2 Sat by Pulse 96 90 94 Oximetry 11/17/18 11/17/18 11/17/18 00:31 00:45 01:01 Pulse Rate Respiratory Rate Blood Pressure 142/67 121/68 123/52 O2 Sat by Pulse 91 93 96 Oximetry 11/17/18 11/17/18 11/17/18 01:15 01:37 01:46 Pulse Rate Respiratory Rate Blood Pressure 123/52 123/52 123/52 O2 Sat by Pulse 96 84 Oximetry - Reevaluation(s) Reevaluation #1: Patient's initial evaluation done and patient is still wheezing. Patient will be given a magnesium run the patient is currently receiving a DuoNeb. 11/16/18 23:36 Reevaluation #2: Patient states he is feeling better but the patient is still having significant wheezing. Patient was given another DuoNeb. Patient is also hypoxic. Patient was placed on 2 L of O2 11/17/18 01:01 Reevaluation #3: Discussed all results with patient. Patient agrees with plan of care and admission. Patient will be admitted to the hospitalist service. 11/17/18 01:15 Reevaluation #4: After the hospitalist was called the patient decided to not be admitted. Patient is leaving the hospital AGAINST MEDICAL ADVICE. AMA sign. I discussed this fully with the patient of leaving the hospital AGAINST MEDICAL ADVICE and the patient voiced understanding. I advised patient to follow up with her primary care in 2-3 days. Advised patient to follow up with a hand brim ironer in 2-3 days. I advised patient to return to the ER if condition worsens. 11/17/18 01:31 - Consultations Consultation #1: Hospitalist consult for admission. Hospitalist to admit patient and assume care of patient. 11/17/18 01:16 ED Medical Decision Making - Lab Data Result diagrams: 11/16/18 23:49 11/16/18 23:50 - Radiology Data Radiology results: report reviewed CHEST 1 VIEW INDICATION / CLINICAL INFORMATION: Dyspnea. COMPARISON: 11/09/2018 FINDINGS: SUPPORT DEVICES: None. HEART / MEDIASTINUM: No significant abnormality. LUNGS / PLEURA: No significant pulmonary or pleural abnormality. No pneumothorax. ADDITIONAL FINDINGS: No significant additional findings. IMPRESSION: No acute pulmonary or pleural abnormality. No change from 11/09/2018 - Medical Decision Making Patient is a 23-year-old male presents to emergency room with status asthmaticus and platelets of shortness of breath or respiratory distress. Patient is given multiple medications patient was admitted to the hospitalist service but patient decided not to be admitted to the hospital AGAINST MEDICAL ADVICE. Patient was restrained device was still signed out AMA. Patient's labs unremarkable. Patient's chest x-ray negative. - Differential Diagnosis shortness of breath. Respiratory distress. Hypoxia. Status asthmaticus. Critical Care Time: Yes Critical care attestation.: If time is entered above; I have spent that time in minutes in the direct care of this critically ill patient, excluding procedure time. Critical Care Time: 35 minutes ED Disposition Clinical Impression: Hypoxia, SOB (shortness of breath), Respiratory distress Status asthmaticus Qualifiers: Asthma severity: severe Asthma persistence: persistent Qualified Code(s): J45.52 - Severe persistent asthma with status asthmaticus Disposition: LEFT AGAINST MED ADVICE Is pt being admited?: Yes Does the pt Need Aspirin: No Condition: Critical Referrals: LIBAN PERSAUD MD [Primary Care Provider] - 2-3 Days Time of Disposition: 01:16
[2018-11-17] LABS: Basophils # (Auto) 0.1 K/mm3 (0.0-0.1); Basophils % (Auto) 1.4 % (0.0-1.8); Eosinophils # (Auto) 0.6 K/mm3 (0.0-0.4); Eosinophils % (Auto) 10.3 % (0.0-4.3); Hematocrit 39.2 % (35.5-45.6); Hemoglobin 12.9 gm/dl (11.8-15.2); Lymphocytes # (Auto) 1.8 K/mm3 (1.2-5.4); Lymphocytes % (Auto) 30.1 % (13.4-35.0); Mean Corpuscular HGB Conc 33 % (32-34); Monocytes # (Auto) 0.6 K/mm3 (0.0-0.8); Platelet Count 221 K/mm3 (140-440); Red Blood Count 5.78 M/mm3 (3.65-5.03)
--- NOTE | 2018-11-17 00:06 | XRay Report ---
CHEST 1 VIEW INDICATION / CLINICAL INFORMATION: Dyspnea. COMPARISON: 11/09/2018 FINDINGS: SUPPORT DEVICES: None. HEART / MEDIASTINUM: No significant abnormality. LUNGS / PLEURA: No significant pulmonary or pleural abnormality. No pneumothorax. ADDITIONAL FINDINGS: No significant additional findings. IMPRESSION: No acute pulmonary or pleural abnormality. No change from 11/09/2018 Signer Name: Leon Quijano MD FACR Signed: 11/17/2018 12:02 AM Workstation Name: [id number]
[2018-11-17 00:13] LABS: Mean Corpuscular Volume 68 fl (84-94)
[2018-11-17 00:16] LABS: Alanine Aminotransferase 17 units/L (7-56); Albumin 4.1 g/dL (3.9-5); BUN/Creatinine Ratio 11; Blood Urea Nitrogen 13 mg/dL (9-20); Calcium 8.8 mg/dL (8.4-10.2); Hemolysis Index 7
[2018-11-17 01:04] VITALS: BP 123/52
[2018-11-17] MEDS ORDERED: DUONEB *Not for PRN Use IH ONE (01:11)
== END 2018-11-17 01:49 | disposition left against medical advice (07) ==
LOC: ED 23:16
DX: R06.03 Acute respiratory distress (principal); J45.52 Severe persistent asthma with status asthmaticus; R09.02 Hypoxemia
CPT/HCPCS: 36415; 71045; 80053; 82140; 85025; 96365; 99291; J3475

== ENCOUNTER 2018-11-28 20:55 | Emergency (ER) | payer SELFPAY ==
[2018-11-28] MEDS ORDERED: PROVENTIL IH ONE ×2 (21:00→23:52)
[2018-11-28] MEDS ORDERED: DECADRON IM ONE (21:00)
[2018-11-28] MEDS ORDERED: ATROVENT IH ONE (21:00)
--- NOTE | 2018-11-28 21:00 | Emergency Department Report ---
Blank Doc - Documentation Documentation: This is a 23-year-old male that presents with SOB and wheezing. This initial assessment/diagnostic orders/clinical plan/treatment(s) is/are subject to change based on patient's health status, clinical progression and re- assessment by fellow clinical providers in the ED. Further treatment and workup at subsequent clinical providers discretion. Patient/guardians urged not to elope from the ED as their condition may be serious if not clinically assessed and managed. Initial orders include: 1- Patient sent to [facility] for further evaluation and treatment 2- breathing treatment/steroids
--- NOTE | 2018-11-28 23:50 | Emergency Department Report ---
ED Asthma HPI - General Chief Complaint: Dyspnea/Respdistress Stated Complaint: ASTHMA Time Seen by Provider: 11/28/18 20:59 Source: patient Mode of arrival: Ambulatory Limitations: No Limitations - History of Present Illness Initial Comments: Mr. Taylor is a 23-year-old male with history of persistent asthma who presents with shortness of breath and wheezing for the past 2 days. He states that he has asthma attack twice a month. He denies hospitalizations or ICU admissions. He denies fever. Denies chest pain. Denies cough. He does work in a [employer] environment. He states that dust and weather are his triggers. According to the electronic medical record, this is Mr. Taylor's ninth visit for asthma since July. Complaint: "asthma attack", shortness of breath, wheezing -: Gradual, days(s) (2) Asthma History: childhood onset, history of frequent attac, history of prior ED visit Severity: mild Context: none known Associated Symptoms: none - Related Data Home Medications Medication Instructions Recorded Confirmed Last Taken predniSONE [Deltasone] 10 mg PO QAM 11/28/18 11/28/18 Unknown Previous Rx's Medication Instructions Recorded Last Taken Type ALBUTEROL Inhaler (OR & NICU) 2 puff IH QID PRN #1 inhalation 11/09/18 Unknown Rx [ProAir HFA Inhaler] ALBUTEROL Inhaler (OR & NICU) 2 puff IH QID PRN #1 device 11/28/18 Unknown Rx [ProAir HFA Inhaler] Prednisone [predniSONE 10 mg 10 mg PO .TAPER #1 tab.ds.pk 11/28/18 Unknown Rx (6-Day Pack, 21 Tabs)] Allergies Allergy/AdvReac Type Severity Reaction Status Date / Time No Known Allergies Allergy Verified 11/09/18 00:12 ED Review of Systems ROS: Stated complaint: ASTHMA Other details as noted in HPI Comment: All other systems reviewed and negative Constitutional: denies: fever, malaise Respiratory: shortness of breath, wheezing. denies: cough ED Past Medical Hx - Past Medical History Previous Medical History?: Yes Hx Asthma: Yes - Surgical History Past Surgical History?: No Additional Surgical History: Testicle Torsion - Social History Smoking Status: Never Smoker Substance Use Type: None - Medications Home Medications: Home Medications Medication Instructions Recorded Confirmed Last Taken Type ALBUTEROL Inhaler (OR & NICU) 2 puff IH QID PRN #1 inhalation 11/09/18 11/28/18 Unknown Rx [ProAir HFA Inhaler] ALBUTEROL Inhaler (OR & NICU) 2 puff IH QID PRN #1 device 11/28/18 Unknown Rx [ProAir HFA Inhaler] Prednisone [predniSONE 10 mg 10 mg PO .TAPER #1 tab.ds.pk 11/28/18 Unknown Rx (6-Day Pack, 21 Tabs)] predniSONE [Deltasone] 10 mg PO QAM 11/28/18 11/28/18 Unknown History ED Physical Exam - General Limitations: No Limitations General appearance: alert, in no apparent distress - Head Head exam: Present: atraumatic, normocephalic - Eye Eye exam: Present: normal appearance - ENT ENT exam: Present: mucous membranes moist - Neck Neck exam: Present: normal inspection, full ROM - Respiratory Respiratory exam: Present: wheezes. Absent: respiratory distress, rales, rhonchi, stridor, chest wall tenderness, accessory muscle use, decreased breath sounds, prolonged expiratory - Cardiovascular Cardiovascular Exam: Present: regular rate, normal rhythm, normal heart sounds. Absent: systolic murmur, diastolic murmur, rubs, gallop - GI/Abdominal GI/Abdominal exam: Present: soft, normal bowel sounds. Absent: distended, tenderness, guarding, rebound - Rectal Rectal exam: Present: deferred - Extremities Exam Extremities exam: Present: normal inspection - Back Exam Back exam: Present: normal inspection - Neurological Exam Neurological exam: Present: alert, oriented X3 - Psychiatric Psychiatric exam: Present: normal affect, normal mood - Skin Skin exam: Present: warm, dry, intact, normal color. Absent: rash ED Course Vital Signs 11/28/18 11/28/18 11/28/18 21:00 21:10 22:01 Temperature 97.9 F 98.4 F Pulse Rate 93 H 84 Pulse Rate [ 84 Bilateral] Respiratory 24 19 Rate Respiratory 19 Rate [Bilateral ] Blood Pressure 150/90 Blood Pressure 124/82 [Left] O2 Sat by Pulse 97 96 Oximetry ED Medical Decision Making - Radiology Data Radiology results: report reviewed interpreted by me: Chest X-ray PA/Lateral two-view radiographs, interpreted by me. My impression: No infiltrate, no pneumothorax, normal cardiac silhouette, normal mediastinum, no gross osseous abnormality, no acute process - Medical Decision Making Mr. Taylor resents with mild asthma exacerbation. No respiratory distress upon arrival. Improved with treatment provided in the emergency department including continuous bronchodilator treatment and IM dexamethasone. I reviewed chest radiograph personally. No infiltrate and no pneumothorax normal. Normal cardiac silhouette normal mediastinum. Prescribed prednisone taper and albuterol. Discharged home. Critical care attestation.: If time is entered above; I have spent that time in minutes in the direct care of this critically ill patient, excluding procedure time. ED Disposition Clinical Impression: Acute asthma exacerbation Disposition: DC-01 TO HOME OR SELFCARE Is pt being admited?: No Does the pt Need Aspirin: No Condition: Stable Instructions: Asthma (ED) Prescriptions: Prednisone [predniSONE 10 mg (6-Day Pack, 21 Tabs)] 10 mg PO .TAPER #1 tab.ds.pk ALBUTEROL Inhaler (OR & NICU) [ProAir HFA Inhaler] 2 puff IH QID PRN #1 device PRN Reason: Shortness Of Breath Referrals: [facility] [Outside] - 3-5 Days Forms: Work/School Release Form(ED)
--- NOTE | 2018-11-29 00:04 | XRay Report ---
CHEST 2 VIEWS INDICATION / CLINICAL INFORMATION: sob/wheezing. COMPARISON: 11/16/2018 FINDINGS: SUPPORT DEVICES: None. HEART / MEDIASTINUM: No significant abnormality. LUNGS / PLEURA: No significant pulmonary or pleural abnormality. No pneumothorax. ADDITIONAL FINDINGS: No significant additional findings. IMPRESSION: 1. No acute findings. Signer Name: Samson Rosales MD Signed: 11/28/2018 11:59 PM Workstation Name: [id number]
[2018-11-29 02:57] VITALS: BP 114/63
== END 2018-11-29 02:55 | disposition home or self-care (01) ==
LOC: ED 20:55
DX: J45.901 Unspecified asthma with (acute) exacerbation (principal); Z79.899 Other long term (current) drug therapy
CPT/HCPCS: 71046; 94644; 96372; 99284; J1100

== ENCOUNTER 2018-12-20 01:18 | Emergency (ER) | payer SELFPAY ==
[2018-12-20] MEDS ORDERED: PROVENTIL IH ONE (01:30)
[2018-12-20] MEDS ORDERED: ATROVENT IH ONE (01:30)
--- NOTE | 2018-12-20 02:57 | Emergency Department Report ---
ED Asthma HPI - General Chief Complaint: Adult Asthma Stated Complaint: GERARDO Time Seen by Provider: 12/20/18 01:30 Source: patient, EMS Mode of arrival: Ambulatory Limitations: No Limitations - History of Present Illness MD Complaint: "asthma attack", shortness of breath -: days(s) (3) Asthma History: childhood onset Severity: moderate Context: ran out of meds (out of his neb medication) Associated Symptoms: productive cough - Related Data Home Medications Medication Instructions Recorded Confirmed Last Taken predniSONE [Deltasone] 10 mg PO QAM 11/28/18 11/28/18 Unknown Previous Rx's Medication Instructions Recorded Last Taken Type ALBUTEROL Inhaler (OR & NICU) 2 puff IH QID PRN #1 inhalation 11/09/18 Unknown Rx [ProAir HFA Inhaler] ALBUTEROL Inhaler (OR & NICU) 2 puff IH QID PRN #1 device 11/28/18 Unknown Rx [ProAir HFA Inhaler] Prednisone [predniSONE 10 mg 10 mg PO .TAPER #1 tab.ds.pk 11/28/18 Unknown Rx (6-Day Pack, 21 Tabs)] ALBUTEROL NEB's [Proventil 0.083% 2.5 mg IH TID PRN #20 neb 12/20/18 Unknown Rx NEBS] guaiFENesin/CODEINE [Robitussin AC] 5 ml PO Q6HR PRN #100 oral.liqd 12/20/18 Unknown Rx predniSONE [Deltasone] 20 mg PO QDAY #5 tab 12/20/18 Unknown Rx Allergies Allergy/AdvReac Type Severity Reaction Status Date / Time No Known Allergies Allergy Verified 11/09/18 00:12 ED Review of Systems ROS: Stated complaint: GERARDO Other details as noted in HPI Comment: All other systems reviewed and negative ED Past Medical Hx - Past Medical History Previous Medical History?: Yes Hx Asthma: Yes - Surgical History Past Surgical History?: Yes Additional Surgical History: Testicle Torsion, twisted intestine - Social History Smoking Status: Former Smoker Substance Use Type: None - Medications Home Medications: Home Medications Medication Instructions Recorded Confirmed Last Taken Type ALBUTEROL Inhaler (OR & NICU) 2 puff IH QID PRN #1 inhalation 11/09/18 11/28/18 Unknown Rx [ProAir HFA Inhaler] ALBUTEROL Inhaler (OR & NICU) 2 puff IH QID PRN #1 device 11/28/18 Unknown Rx [ProAir HFA Inhaler] Prednisone [predniSONE 10 mg 10 mg PO .TAPER #1 tab.ds.pk 11/28/18 Unknown Rx (6-Day Pack, 21 Tabs)] predniSONE [Deltasone] 10 mg PO QAM 11/28/18 11/28/18 Unknown History ALBUTEROL NEB's [Proventil 0.083% 2.5 mg IH TID PRN #20 neb 12/20/18 Unknown Rx NEBS] guaiFENesin/CODEINE [Robitussin AC] 5 ml PO Q6HR PRN #100 oral.liqd 12/20/18 Unknown Rx predniSONE [Deltasone] 20 mg PO QDAY #5 tab 12/20/18 Unknown Rx ED Physical Exam - General Limitations: No Limitations General appearance: alert, in no apparent distress - Head Head exam: Present: atraumatic, normocephalic - Eye Eye exam: Present: normal appearance, PERRL, EOMI - ENT ENT exam: Present: mucous membranes moist - Neck Neck exam: Present: normal inspection - Respiratory Respiratory exam: Present: normal lung sounds bilaterally, wheezes. Absent: respiratory distress, rales, rhonchi - Cardiovascular Cardiovascular Exam: Present: regular rate, normal rhythm, normal heart sounds. Absent: systolic murmur, diastolic murmur, rubs, gallop - GI/Abdominal GI/Abdominal exam: Present: soft, normal bowel sounds. Absent: distended, tenderness, guarding, rebound - Rectal Rectal exam: Present: deferred - Extremities Exam Extremities exam: Present: normal inspection - Back Exam Back exam: Present: normal inspection - Neurological Exam Neurological exam: Present: alert, oriented X3 - Psychiatric Psychiatric exam: Present: normal affect, normal mood - Skin Skin exam: Present: warm, dry, intact, normal color. Absent: rash ED Course Vital Signs 12/20/18 12/20/18 01:29 01:56 Temperature 98.2 F Pulse Rate 73 Pulse Rate [ 79 Anterior] Respiratory 18 Rate Respiratory 18 Rate [Anterior] Blood Pressure 118/69 Blood Pressure 118/69 [Left] O2 Sat by Pulse 97 Oximetry ED Medical Decision Making - Medical Decision Making Patient received a nebulized treatment and feeling much improved. Patient discharged home. Critical care attestation.: If time is entered above; I have spent that time in minutes in the direct care of this critically ill patient, excluding procedure time. ED Disposition Clinical Impression: Asthma exacerbation Qualifiers: Asthma severity: moderate Asthma persistence: unspecified Qualified Code(s): J45.901 - Unspecified asthma with (acute) exacerbation Disposition: TO HOME OR SELFCARE Is pt being admited?: No Does the pt Need Aspirin: No Condition: Stable Instructions: Asthma (ED) Referrals: PRIMARY CARE, [Primary Care Provider] - 3-5 Days Time of Disposition: 02:57
[2018-12-20 03:17] VITALS: BP 126/66
== END 2018-12-20 03:16 | disposition home or self-care (01) ==
LOC: ED 01:18
DX: J45.901 Unspecified asthma with (acute) exacerbation (principal); Z87.891 Personal history of nicotine dependence; Z98.890 Other specified postprocedural states
CPT/HCPCS: 94640; 94644

== ENCOUNTER 2019-01-02 07:53 | Emergency (ER) | payer SELFPAY ==
[2019-01-02 07:57] VITALS: BP 120/77
[2019-01-02] MEDS ORDERED: SOLU-Medrol IM ONE (08:34)
[2019-01-02] MEDS ORDERED: DUONEB *Not for PRN Use IH ONE (08:34)
--- NOTE | 2019-01-02 08:38 | Emergency Department Report ---
ED Asthma HPI - General Chief Complaint: Adult Asthma Stated Complaint: ASTHMA Time Seen by Provider: 01/02/19 08:33 Source: patient Mode of arrival: Ambulatory Limitations: No Limitations - History of Present Illness Initial Comments: 23-year-old -[place] male presents to the emergency room for chest tightness and asthma exacerbation for 2 days. Patient does admit to running out of his medications in the last 2 days. Patient reports he works around chemicals and pain. Patient denies any fever or chills no nausea no vomiting. MD Complaint: "asthma attack", wheezing Onset/Timin -: days(s) Asthma History: history of frequent attac, history of prior ED visit Severity: moderate Associated Symptoms: dry cough - Related Data Current Asthma Therapy: none Home Medications Medication Instructions Recorded Confirmed Last Taken predniSONE [Deltasone] 10 mg PO QAM 11/28/18 11/28/18 Unknown Previous Rx's Medication Instructions Recorded Last Taken Type ALBUTEROL Inhaler (OR & NICU) 2 puff IH QID PRN #1 inhalation 11/09/18 Unknown Rx [ProAir HFA Inhaler] ALBUTEROL Inhaler (OR & NICU) 2 puff IH QID PRN #1 device 11/28/18 Unknown Rx [ProAir HFA Inhaler] Prednisone [predniSONE 10 mg 10 mg PO .TAPER #1 tab.ds.pk 11/28/18 Unknown Rx (6-Day Pack, 21 Tabs)] ALBUTEROL NEB's [Proventil 0.083% 2.5 mg IH TID PRN #20 neb 12/20/18 Unknown Rx NEBS] guaiFENesin/CODEINE [Robitussin AC] 5 ml PO Q6HR PRN #100 oral.liqd 12/20/18 Unknown Rx predniSONE [Deltasone] 20 mg PO QDAY #5 tab 12/20/18 Unknown Rx Allergies Allergy/AdvReac Type Severity Reaction Status Date / Time No Known Allergies Allergy Verified 11/09/18 00:12 ED Review of Systems ROS: Stated complaint: ASTHMA Other details as noted in HPI Comment: All other systems reviewed and negative Constitutional: denies: chills, fever Eyes: denies: eye pain, eye discharge, vision change ENT: denies: ear pain, throat pain Respiratory: cough, shortness of breath. denies: wheezing Cardiovascular: dyspnea on exertion Endocrine: no symptoms reported Gastrointestinal: denies: abdominal pain, nausea, diarrhea Genitourinary: denies: urgency, dysuria Musculoskeletal: denies: back pain, joint swelling, arthralgia Skin: denies: rash, lesions Neurological: denies: headache, weakness, paresthesias Psychiatric: denies: anxiety, depression ED Past Medical Hx - Past Medical History Previous Medical History?: Yes Hx Asthma: Yes - Surgical History Past Surgical History?: Yes Additional Surgical History: Testicle Torsion, twisted intestine - Social History Smoking Status: Never Smoker Substance Use Type: None - Medications Home Medications: Home Medications Medication Instructions Recorded Confirmed Last Taken Type ALBUTEROL Inhaler (OR & NICU) 2 puff IH QID PRN #1 inhalation 11/09/18 11/28/18 Unknown Rx [ProAir HFA Inhaler] ALBUTEROL Inhaler (OR & NICU) 2 puff IH QID PRN #1 device 11/28/18 Unknown Rx [ProAir HFA Inhaler] Prednisone [predniSONE 10 mg 10 mg PO .TAPER #1 tab.ds.pk 11/28/18 Unknown Rx (6-Day Pack, 21 Tabs)] predniSONE [Deltasone] 10 mg PO QAM 11/28/18 11/28/18 Unknown History ALBUTEROL NEB's [Proventil 0.083% 2.5 mg IH TID PRN #20 neb 12/20/18 Unknown Rx NEBS] guaiFENesin/CODEINE [Robitussin AC] 5 ml PO Q6HR PRN #100 oral.liqd 12/20/18 Unknown Rx predniSONE [Deltasone] 20 mg PO QDAY #5 tab 12/20/18 Unknown Rx ED Physical Exam - General Limitations: No Limitations General appearance: alert, in no apparent distress - Head Head exam: Present: atraumatic, normocephalic - Eye Eye exam: Present: normal appearance - ENT ENT exam: Present: mucous membranes moist - Neck Neck exam: Present: normal inspection, full ROM. Absent: lymphadenopathy - Respiratory Respiratory exam: Present: wheezes, rhonchi - Cardiovascular Cardiovascular Exam: Present: regular rate, normal rhythm. Absent: systolic murmur, diastolic murmur, rubs, gallop - GI/Abdominal GI/Abdominal exam: Present: soft, normal bowel sounds - Back Exam Back exam: Present: normal inspection - Neurological Exam Neurological exam: Present: alert, oriented X3 - Psychiatric Psychiatric exam: Present: normal affect, normal mood - Skin Skin exam: Present: warm, dry, intact, normal color. Absent: rash ED Course Vital Signs 01/02/19 01/02/19 07:56 09:05 Temperature 98.0 F Pulse Rate 75 Pulse Rate [ 64 Anterior] Pulse Rate [ 61 Posterior] Respiratory 18 Rate Respiratory 22 Rate [Anterior] Respiratory 20 Rate [Posterior ] Blood Pressure 120/77 O2 Sat by Pulse 98 Oximetry ED Medical Decision Making - Medical Decision Making 23-year-old -[place] male presents to the emergency room for chest tightness and asthma exacerbation for 2 days. Patient does admit to running out of his medications in the last 2 days. Patient reports he works around chemicals and pain. Patient denies any fever or chills no nausea no vomiting. Solu-Medrol 1.25 mg IM Duo neb. Critical care attestation.: If time is entered above; I have spent that time in minutes in the direct care of this critically ill patient, excluding procedure time. ED Disposition Clinical Impression: Asthma exacerbation Disposition: ELOPED Is pt being admited?: No Does the pt Need Aspirin: No Condition: Undetermined Referrals: PRIMARY CARE, [Primary Care Provider] - 3-5 Days
== END 2019-01-02 10:05 | disposition left against medical advice (07) ==
LOC: ED 07:53
DX: J45.901 Unspecified asthma with (acute) exacerbation (principal); Z98.890 Other specified postprocedural states; Z79.899 Other long term (current) drug therapy
CPT/HCPCS: 94640; 96372; 99282; J2930; 94644

== ENCOUNTER 2019-02-20 16:19 | Emergency (ER) | payer SELFPAY ==
[2019-02-20 16:41] VITALS: BP 117/65
[2019-02-20] MEDS ORDERED: methylPREDNISolone Sod Succinate 125 MG/2 ML INJ IV ONE (16:44)
--- NOTE | 2019-02-20 16:44 | Event Note ---
ED Screening Note Date of service: 02/20/18 Time: 16:40 ED Screening Note: Pt complains of cough, congestion, and wheezing x 3 weeks +asthma-states flaired up +SOB +yellow mucous and hemoptysis today per pt hx of pneumonia denies fever This initial assessment/diagnostic orders/clinical plan/treatment(s) is/are subject to change based on patients health status, clinical progression and re- assessment by fellow clinical providers in the ED. Further treatment and workup at subsequent clinical providers discretion. Patient/guardian urged not to elope from the ED as their condition may be serious if not clinically assessed and managed. Initial orders include: Neb CXR
[2019-02-20] MEDS ORDERED: IPRATROPIUM 0.02% NEBU 2.5 ML IH ONE (16:45)
[2019-02-20] MEDS ORDERED: ALBUTEROL 2.5 MG/3 ML NEBU IH ONE (16:45)
[2019-02-20 17:09] LABS: Mean Corpuscular HGB Conc 31 % (32-34); Platelet Count 296 K/mm3 (140-440); Red Blood Count 6.14 M/mm3 (3.65-5.03); Red Cell Distribution Width 17.6 % (13.2-15.2)
[2019-02-20 17:10] LABS: Hematocrit 41.7 % (35.5-45.6); Hemoglobin 12.7 gm/dl (11.8-15.2); Mean Corpuscular Volume 68 fl (84-94)
[2019-02-20 17:24] LABS: BUN/Creatinine Ratio 13; Blood Urea Nitrogen 13 mg/dL (9-20); Hemolysis Index 8
--- NOTE | 2019-02-20 17:37 | XRay Report ---
CHEST 2 VIEWS INDICATION / CLINICAL INFORMATION: shortness of breath, cough. COMPARISON: 11/28/2018 FINDINGS: SUPPORT DEVICES: None. HEART / MEDIASTINUM: No significant abnormality. LUNGS / PLEURA: No significant pulmonary or pleural abnormality. .No pneumothorax. ADDITIONAL FINDINGS: No significant additional findings. IMPRESSION: 1. No acute findings. Signer Name: Arian Reyes MD Signed: 02/20/2019 5:33 PM Workstation Name: [id number]
--- NOTE | 2019-02-20 20:43 | Emergency Department Report ---
ED General Adult HPI - General Chief complaint: Dyspnea/Respdistress Stated complaint: ASTHMA/COUGH Time Seen by Provider: 02/20/19 19:09 Source: patient Mode of arrival: Ambulatory Limitations: No Limitations - History of Present Illness Initial comments: 23-year-old -[place] Citizen male with a past medical history of asthma presents to emergency department complaining of a flareup over the last 2 weeks which has become worsened over the last couple days after coming in contact with an unknown irritant.. Reports no fever, chills, sweats no back pain or palpitations no nausea or vomiting. No no headache or rash. He tried to utilize his inhaler at home but it did not stop the Prilose and emergency department for further evaluation and treatment options. No foreign travel or known sick contacts. -: Gradual, days(s) (14) Location: chest Radiation: non-radiation Improves with: none Worsens with: none Associated Symptoms: cough. denies: malaise, nausea/vomiting, shortness of breath, syncope, weakness - Related Data Home Medications Medication Instructions Recorded Confirmed Last Taken predniSONE [Deltasone] 10 mg PO QAM 11/28/18 11/28/18 Unknown Previous Rx's Medication Instructions Recorded Last Taken Type ALBUTEROL Inhaler (OR & NICU) 2 puff IH QID PRN #1 inhalation 11/09/18 Unknown Rx [ProAir HFA Inhaler] ALBUTEROL Inhaler (OR & NICU) 2 puff IH QID PRN #1 device 11/28/18 Unknown Rx [ProAir HFA Inhaler] Prednisone [predniSONE 10 mg 10 mg PO .TAPER #1 tab.ds.pk 11/28/18 Unknown Rx (6-Day Pack, 21 Tabs)] ALBUTEROL NEB's [Proventil 0.083% 2.5 mg IH TID PRN #20 neb 12/20/18 Unknown Rx NEBS] guaiFENesin/CODEINE [Robitussin AC] 5 ml PO Q6HR PRN #100 oral.liqd 12/20/18 Unknown Rx predniSONE [Deltasone] 20 mg PO QDAY #5 tab 12/20/18 Unknown Rx Albuterol Sulfate [Proair 90 mcg IH Q4HR PRN #2 aer.pow.ba 01/10/19 Unknown Rx Respiclick] Benzonatate [Tessalon Perles] 100 mg PO Q8HR PRN #30 capsule 01/10/19 Unknown Rx predniSONE [Deltasone] 40 mg PO QDAY #8 tab 01/10/19 Unknown Rx ALBUTEROL Inhaler (OR & NICU) 1 puff IH Q4-6H PRN #1 inha 02/20/19 Unknown Rx [ProAir HFA Inhaler] Azithromycin [Zithromax] 500 mg PO QDAY #3 tablet 02/20/19 Unknown Rx Montelukast [Singulair] 10 mg PO QPM #14 tablet 02/20/19 Unknown Rx guaiFENesin/CODEINE [Robitussin AC] 5 ml PO Q6H PRN #120 ml 02/20/19 Unknown Rx predniSONE [Deltasone] 50 mg PO QDAY #5 tab 02/20/19 Unknown Rx Allergies Allergy/AdvReac Type Severity Reaction Status Date / Time No Known Allergies Allergy Verified 11/09/18 00:12 ED Review of Systems ROS: Stated complaint: ASTHMA/COUGH Other details as noted in HPI Comment: All other systems reviewed and negative ED Past Medical Hx - Past Medical History Previous Medical History?: Yes Hx Hypertension: No Hx CVA: No Hx Heart Attack/AMI: No Hx Congestive Heart Failure: No Hx Diabetes: No Hx Deep Vein Thrombosis: No Hx Pulmonary Embolism: No Hx GERD: No Hx Liver Disease: No Hx Renal Disease: No Hx Sickle Cell Disease: No Hx Arthritis: No Hx Headaches / Migraines: No Hx Seizures: No Hx Kidney Stones: No Hx Psychiatric Treatment: No Hx Asthma: Yes Hx COPD: No Hx Tuberculosis: No Hx Dementia: No Hx HIV: No - Surgical History Past Surgical History?: Yes Hx Coronary Stent: No Hx Open Heart Surgery: No Hx Pacemaker: No Hx Internal Defibrillator: No Hx Cholecystectomy: No Hx Appendectomy: No Hx Breast Surgery: No Additional Surgical History: Testicle Torsion, twisted intestine - Social History Smoking Status: Never Smoker Substance Use Type: None - Medications Home Medications: Home Medications Medication Instructions Recorded Confirmed Last Taken Type ALBUTEROL Inhaler (OR & NICU) 2 puff IH QID PRN #1 inhalation 11/09/18 11/28/18 Unknown Rx [ProAir HFA Inhaler] ALBUTEROL Inhaler (OR & NICU) 2 puff IH QID PRN #1 device 11/28/18 Unknown Rx [ProAir HFA Inhaler] Prednisone [predniSONE 10 mg 10 mg PO .TAPER #1 tab.ds.pk 11/28/18 Unknown Rx (6-Day Pack, 21 Tabs)] predniSONE [Deltasone] 10 mg PO QAM 11/28/18 11/28/18 Unknown History ALBUTEROL NEB's [Proventil 0.083% 2.5 mg IH TID PRN #20 neb 12/20/18 Unknown Rx NEBS] guaiFENesin/CODEINE [Robitussin AC] 5 ml PO Q6HR PRN #100 oral.liqd 12/20/18 Unknown Rx predniSONE [Deltasone] 20 mg PO QDAY #5 tab 12/20/18 Unknown Rx Albuterol Sulfate [Proair 90 mcg IH Q4HR PRN #2 aer.pow.ba 01/10/19 Unknown Rx Respiclick] Benzonatate [Tessalon Perles] 100 mg PO Q8HR PRN #30 capsule 01/10/19 Unknown Rx predniSONE [Deltasone] 40 mg PO QDAY #8 tab 01/10/19 Unknown Rx ALBUTEROL Inhaler (OR & NICU) 1 puff IH Q4-6H PRN #1 inha 02/20/19 Unknown Rx [ProAir HFA Inhaler] Azithromycin [Zithromax] 500 mg PO QDAY #3 tablet 02/20/19 Unknown Rx Montelukast [Singulair] 10 mg PO QPM #14 tablet 02/20/19 Unknown Rx guaiFENesin/CODEINE [Robitussin AC] 5 ml PO Q6H PRN #120 ml 02/20/19 Unknown Rx predniSONE [Deltasone] 50 mg PO QDAY #5 tab 02/20/19 Unknown Rx ED Physical Exam - General Limitations: No Limitations General appearance: alert, in no apparent distress - Head Head exam: Present: atraumatic, normocephalic - Eye Eye exam: Present: normal appearance - ENT ENT exam: Present: mucous membranes moist - Neck Neck exam: Present: normal inspection - Respiratory Respiratory exam: Present: normal lung sounds bilaterally, wheezes. Absent: respiratory distress - Cardiovascular Cardiovascular Exam: Present: regular rate, normal rhythm. Absent: systolic murmur, diastolic murmur, rubs, gallop - GI/Abdominal GI/Abdominal exam: Present: soft, normal bowel sounds - Rectal Rectal exam: Present: deferred - Extremities Exam Extremities exam: Present: normal inspection - Back Exam Back exam: Present: normal inspection - Neurological Exam Neurological exam: Present: alert, oriented X3 - Psychiatric Psychiatric exam: Present: normal affect, normal mood - Skin Skin exam: Present: warm, dry, intact, normal color. Absent: rash ED Course Vital Signs 02/20/19 02/20/19 16:23 18:15 Temperature 98.4 F Pulse Rate 94 H Pulse Rate [ 93 H Anterior Bilateral Throughout] Respiratory 16 22 Rate Respiratory 17 Rate [Anterior Bilateral Throughout] Blood Pressure 117/65 O2 Sat by Pulse 94 Oximetry - Reevaluation(s) Reevaluation #1: 02/20/19 20:39 Wheezing and has improved and will be breathing has decreased after the respiratory treatment was provided. Patient speaking in full sentences no acute respiratory distress ED Medical Decision Making - Lab Data Result diagrams: 02/20/19 16:55 02/20/19 16:55 - Radiology Data Radiology results: report reviewed Ray Report Signed Patient: ENEDELIA DE LOS SANTOS R#: [id number] : 1995 Acct:[id number] Age/Sex: 23 / M ADM Date: 02/20/19 Loc: ED Attending Dr: Ordering Physician: KADEN RUIZ Date of Service: 02/20/19 Procedure(s): XR chest routine 2V Accession Number(s): [id number] cc: KADEN RUIZ Fluoro Time In Minutes: CHEST 2 VIEWS INDICATION / CLINICAL INFORMATION: shortness of breath, cough. COMPARISON: 11/28/2018 FINDINGS: SUPPORT DEVICES: None. HEART / MEDIASTINUM: No significant abnormality. LUNGS / PLEURA: No significant pulmonary or pleural abnormality. .No pneumothorax. ADDITIONAL FINDINGS: No significant additional findings. IMPRESSION: 1. No acute findings. Signer Name: Arian Reyes MD Signed: 02/20/2019 5:33 PM Workstation Name: [id number] Transcribed By: SS Dictated By: Arian Reyes MD Electronically Authenticated By: rAian Reyes MD Signed Date/Time: 02/20/19 1733 - Medical Decision Making 23-year-old [place] Citizen male with a known history of asthma since emergency department complaining of a asthma flareup while working and he is unsure of the actual stimuli which caused him to have this episodes. Patient states he gets recurrent asthma episodes which she treats at home with his inhaler however this time using his inhaler he continued to have wheezing so he came department reports no fever, chills, sweats no hemoptysis hematemesis nor hematochezia. Reports no rashes and reports no chest pain. Critical care attestation.: If time is entered above; I have spent that time in minutes in the direct care of this critically ill patient, excluding procedure time. ED Disposition Clinical Impression: Asthma, Normal chest x-ray Disposition: DC-01 TO HOME OR SELFCARE Is pt being admited?: No Does the pt Need Aspirin: No Condition: Stable Instructions: Asthma (ED) Forms: AMA Form
== END 2019-02-20 20:53 | disposition home or self-care (01) ==
LOC: ED 16:19
DX: J45.909 Unspecified asthma, uncomplicated (principal); R91.8 Other nonspecific abnormal finding of lung field; Z79.899 Other long term (current) drug therapy
CPT/HCPCS: 36415; 71046; 80048; 85027; 94640; 96374; 99284; J2930; 94644

== ENCOUNTER 2019-02-22 14:54 | Emergency (ER) | payer SELFPAY ==
--- NOTE | 2019-02-22 15:25 | Emergency Department Report ---
Chief Complaint: Dyspnea/Respdistress Stated Complaint: CHEST PAIN/WHEEZING - HPI History of Present Illness: 23yo Bm states that he has SOB and coughing. He states that his symptoms have been ongoing for 2 days. He states that he has chronic asthma and he took 20 mg of prednisone along with albuterol before arriving. - Exam Vital Signs: Vital Signs 02/22/19 15:00 Temperature 97.6 F Pulse Rate 84 Respiratory 18 Rate Blood Pressure 126/62 O2 Sat by Pulse 99 Oximetry MSE screening note: Focused history and physical exam performed. Due to findings the following was ordered: ED Disposition for MSE Condition: Stable
--- NOTE | 2019-02-22 15:51 | XRay Report ---
CHEST 2 VIEWS INDICATION / CLINICAL INFORMATION: SOB. COMPARISON: 02/20/2019. FINDINGS: SUPPORT DEVICES: None. HEART / MEDIASTINUM: The heart size and pulmonary vasculature are normal. LUNGS / PLEURA: No significant pulmonary or pleural abnormality. No pneumothorax. ADDITIONAL FINDINGS: No significant additional findings. IMPRESSION: No acute abnormality or significant change. Signer Name: Kalpesh Dick MD Signed: 02/22/2019 3:47 PM Workstation Name: [id number]
[2019-02-22] MEDS ORDERED: IPRATROPIUM 0.02% NEBU 2.5 ML IH ONE (16:00)
[2019-02-22] MEDS ORDERED: ALBUTEROL 2.5 MG/3 ML NEBU IH ONE (16:00)
[2019-02-22] MEDS ORDERED: dexAMETHasone 20 MG/5 ML VIAL IM ONE (16:00)
--- NOTE | 2019-02-22 17:42 | Emergency Department Report ---
<PATRICIO MONTILLA - Last Filed: 02/22/19 17:39> ED Asthma HPI - General Chief Complaint: Dyspnea/Respdistress Stated Complaint: CHEST PAIN/WHEEZING Time Seen by Provider: 02/22/19 15:59 Source: patient Mode of arrival: Ambulatory Limitations: No Limitations - History of Present Illness Initial Comments: Patient is a 23-year-old male who is presenting with exacerbation of his asthma. Patient states that he is recently had C increase the frequency of his breathing treatments and albuterol rescue inhaler. Patient states that he didn't get his prescription filled for steroids and has begun taking them. Patient was here 2 days ago for same complaint. Patient states he has also had a cough is productive of greenish sputum. - Related Data Home Medications Medication Instructions Recorded Confirmed Last Taken predniSONE [Deltasone] 10 mg PO QAM 11/28/18 11/28/18 Unknown Previous Rx's Medication Instructions Recorded Last Taken Type ALBUTEROL Inhaler (OR & NICU) 2 puff IH QID PRN #1 inhalation 11/09/18 Unknown Rx [ProAir HFA Inhaler] ALBUTEROL Inhaler (OR & NICU) 2 puff IH QID PRN #1 device 11/28/18 Unknown Rx [ProAir HFA Inhaler] ALBUTEROL NEB's [Proventil 0.083% 2.5 mg IH TID PRN #20 neb 12/20/18 Unknown Rx NEBS] guaiFENesin/CODEINE [Robitussin AC] 5 ml PO Q6HR PRN #100 oral.liqd 12/20/18 Unknown Rx predniSONE [Deltasone] 20 mg PO QDAY #5 tab 12/20/18 Unknown Rx Albuterol Sulfate [Proair 90 mcg IH Q4HR PRN #2 aer.pow.ba 01/10/19 Unknown Rx Respiclick] Benzonatate [Tessalon Perles] 100 mg PO Q8HR PRN #30 capsule 01/10/19 Unknown Rx predniSONE [Deltasone] 40 mg PO QDAY #8 tab 01/10/19 Unknown Rx ALBUTEROL Inhaler (OR & NICU) 1 puff IH Q4-6H PRN #1 inha 02/20/19 Unknown Rx [ProAir HFA Inhaler] Azithromycin [Zithromax] 500 mg PO QDAY #3 tablet 02/20/19 Unknown Rx Montelukast [Singulair] 10 mg PO QPM #14 tablet 02/20/19 Unknown Rx guaiFENesin/CODEINE [Robitussin AC] 5 ml PO Q6H PRN #120 ml 02/20/19 Unknown Rx predniSONE [Deltasone] 50 mg PO QDAY #5 tab 02/20/19 Unknown Rx Azithromycin [Zithromax Z-FABIAN] 250 mg PO DAILY #6 tablet 02/22/19 Unknown Rx Benzonatate [Tessalon Perles] 100 mg PO Q8HR #30 capsule 02/22/19 Unknown Rx Cetirizine HCl [Zyrtec 10mg tab] 10 mg PO DAILY #30 tablet 02/22/19 Unknown Rx Prednisone [predniSONE 10 mg 10 mg PO .TAPER #1 tab.ds.pk 02/22/19 Unknown Rx (6-Day Pack, 21 Tabs)] Allergies Allergy/AdvReac Type Severity Reaction Status Date / Time No Known Allergies Allergy Verified 11/09/18 00:12 ED Review of Systems Comment: All other systems reviewed and negative ED Past Medical Hx - Past Medical History Previous Medical History?: Yes Hx Hypertension: No Hx CVA: No Hx Heart Attack/AMI: No Hx Congestive Heart Failure: No Hx Diabetes: No Hx Deep Vein Thrombosis: No Hx Pulmonary Embolism: No Hx GERD: No Hx Liver Disease: No Hx Renal Disease: No Hx Sickle Cell Disease: No Hx Arthritis: No Hx Headaches / Migraines: No Hx Seizures: No Hx Kidney Stones: No Hx Psychiatric Treatment: No Hx Asthma: Yes Hx COPD: No Hx Tuberculosis: No Hx Dementia: No Hx HIV: No - Surgical History Hx Coronary Stent: No Hx Open Heart Surgery: No Hx Pacemaker: No Hx Internal Defibrillator: No Hx Cholecystectomy: No Hx Appendectomy: No Hx Breast Surgery: No Additional Surgical History: Testicle Torsion, twisted intestine - Social History Smoking Status: Never Smoker Substance Use Type: None - Medications Home Medications: Home Medications Medication Instructions Recorded Confirmed Last Taken Type ALBUTEROL Inhaler (OR & NICU) 2 puff IH QID PRN #1 inhalation 11/09/18 11/28/18 Unknown Rx [ProAir HFA Inhaler] ALBUTEROL Inhaler (OR & NICU) 2 puff IH QID PRN #1 device 11/28/18 Unknown Rx [ProAir HFA Inhaler] predniSONE [Deltasone] 10 mg PO QAM 11/28/18 11/28/18 Unknown History ALBUTEROL NEB's [Proventil 0.083% 2.5 mg IH TID PRN #20 neb 12/20/18 Unknown Rx NEBS] guaiFENesin/CODEINE [Robitussin AC] 5 ml PO Q6HR PRN #100 oral.liqd 12/20/18 Unknown Rx predniSONE [Deltasone] 20 mg PO QDAY #5 tab 12/20/18 Unknown Rx Albuterol Sulfate [Proair 90 mcg IH Q4HR PRN #2 aer.pow.ba 01/10/19 Unknown Rx Respiclick] Benzonatate [Tessalon Perles] 100 mg PO Q8HR PRN #30 capsule 01/10/19 Unknown Rx predniSONE [Deltasone] 40 mg PO QDAY #8 tab 01/10/19 Unknown Rx ALBUTEROL Inhaler (OR & NICU) 1 puff IH Q4-6H PRN #1 inha 02/20/19 Unknown Rx [ProAir HFA Inhaler] Azithromycin [Zithromax] 500 mg PO QDAY #3 tablet 02/20/19 Unknown Rx Montelukast [Singulair] 10 mg PO QPM #14 tablet 02/20/19 Unknown Rx guaiFENesin/CODEINE [Robitussin AC] 5 ml PO Q6H PRN #120 ml 02/20/19 Unknown Rx predniSONE [Deltasone] 50 mg PO QDAY #5 tab 02/20/19 Unknown Rx Azithromycin [Zithromax Z-FABIAN] 250 mg PO DAILY #6 tablet 02/22/19 Unknown Rx Benzonatate [Tessalon Perles] 100 mg PO Q8HR #30 capsule 02/22/19 Unknown Rx Cetirizine HCl [Zyrtec 10mg tab] 10 mg PO DAILY #30 tablet 02/22/19 Unknown Rx Prednisone [predniSONE 10 mg 10 mg PO .TAPER #1 tab.ds.pk 02/22/19 Unknown Rx (6-Day Pack, 21 Tabs)] ED Physical Exam - General Limitations: No Limitations General appearance: alert, in no apparent distress - Head Head exam: Present: atraumatic, normocephalic - Eye Eye exam: Present: normal appearance - ENT ENT exam: Present: mucous membranes moist - Neck Neck exam: Present: normal inspection - Respiratory Respiratory exam: Present: respiratory distress, wheezes. Absent: normal lung sounds bilaterally, rales, rhonchi, stridor - Cardiovascular Cardiovascular Exam: Present: regular rate, normal rhythm, normal heart sounds. Absent: systolic murmur, diastolic murmur, rubs, gallop - GI/Abdominal GI/Abdominal exam: Present: soft, normal bowel sounds. Absent: distended, tenderness, guarding, rebound - Rectal Rectal exam: Present: deferred - Extremities Exam Extremities exam: Present: normal inspection - Back Exam Back exam: Present: normal inspection - Neurological Exam Neurological exam: Present: alert, oriented X3 - Psychiatric Psychiatric exam: Present: normal affect, normal mood - Skin Skin exam: Present: warm, dry, intact, normal color. Absent: rash ED Course - Reevaluation(s) Reevaluation #1: 02/22/19 17:42 Patient was given an hour-long treatment and the patient will be reassessed. Patient given IM steroid injection. ED Disposition Clinical Impression: Acute asthmatic bronchitis, Acute upper respiratory infection, Shortness of breath Disposition: DC- TO HOME OR SELFCARE Condition: Stable Instructions: Acute Bronchitis (ED), Asthma (ED), Upper Respiratory Infection (ED) Additional Instructions: Take medication with food, drink plenty of fluids and follow-up with [facility] clinic in 3-5 days for reevaluation. Return to the ED immediately if symptoms get worse. Prescriptions: Prednisone [predniSONE 10 mg (6-Day Pack, 21 Tabs)] 10 mg PO .TAPER #1 tab.ds.pk Benzonatate [Tessalon Perles] 100 mg PO Q8HR #30 capsule Azithromycin [Zithromax Z-FABIAN] 250 mg PO DAILY #6 tablet Cetirizine HCl [Zyrtec 10mg tab] 10 mg PO DAILY #30 tablet Referrals: [facility] [Outside] - 3-5 Days Print Language: SLOVENIAN <KIKE REBOLLEDO - Last Filed: 02/22/19 19:11> ED Review of Systems ROS: Stated complaint: CHEST PAIN/WHEEZING Other details as noted in HPI ED Course Vital Signs 02/22/19 02/22/19 15:00 15:49 Temperature 97.6 F Pulse Rate 84 Respiratory 18 20 Rate Blood Pressure 126/62 O2 Sat by Pulse 99 Oximetry - Reevaluation(s) Reevaluation #1: 02/22/19 19:02 I assumed care of the patient from Dr. Patricio Montilla at 1800 hrs. after his shift. The patient is a 23-year-old male with a history of asthma who presented to the ED with common of shortness of breath, dry cough, nasal and sinus congestion for the last 3 days. Patient had presented to the ED 24 hours ago, got a nebulizer treatment and eloped from the ED. Patient returned today complaining of worsening shortness of breath despite use of his albuterol inhaler and nebulizers at home. In the ED, the patient received steroid IM injection and an hour-long DuoNeb. Chest x-ray showed no acute cardio pulmonary abnormalities. At shift change, the patient stated that he was feeling much better but the exam showed diffuse coarse wheezes throughout his lung. Patient received additional DuoNeb treatment and was discharged home on steroid Dosepak and cough medications. Patient was advised to return to the ED immediately if symptoms get worse. ED Medical Decision Making - Radiology Data Radiology results: report reviewed, image reviewed Chest x-ray shows no acute cardiopulmonary abnormalities. - Medical Decision Making I assumed care of the patient from Dr. Patricio Montilla at 1800 hrs. after his shift. The patient is a 23-year-old male with a history of asthma who presented to the ED with common of shortness of breath, dry cough, nasal and sinus congestion for the last 3 days. Patient had presented to the ED 24 hours ago, got a nebulizer treatment and eloped from the ED. Patient returned today complaining of worsening shortness of breath despite use of his albuterol inhaler and nebulizers at home. In the ED, the patient received steroid IM injection and an hour-long DuoNeb. Chest x-ray showed no acute cardio pulmonary abnormalities. At shift change, the patient stated that he was feeling much better but the exam showed diffuse coarse wheezes throughout his lung. Patient received additional DuoNeb treatment and was discharged home on steroid Dosepak and cough medicatio ns. Patient was advised to return to the ED immediately if symptoms get worse. - Differential Diagnosis Acute asthma exacerbation; Asthmatic bronchitis; URI Critical care attestation.: If time is entered above; I have spent that time in minutes in the direct care of this critically ill patient, excluding procedure time. ED Disposition Is pt being admited?: No Does the pt Need Aspirin: No Time of Disposition: 19:06
[2019-02-22] MEDS ORDERED: IPRATROPIUM/ALBUTEROL SULFATE 3 ML AMPUL.NEB IH ONE (18:49)
[2019-02-22 20:21] VITALS: BP 120/78
== END 2019-02-22 20:22 | disposition home or self-care (01) ==
LOC: ED 14:54
DX: J06.9 Acute upper respiratory infection, unspecified (principal); J45.909 Unspecified asthma, uncomplicated; Z79.899 Other long term (current) drug therapy
CPT/HCPCS: 71046; 94640; 96372; 99283; J1100; 94644

== ENCOUNTER 2019-03-29 21:45 | Emergency (ER) | payer SELFPAY ==
[2019-03-29 21:54] VITALS: BP 123/75
--- NOTE | 2019-03-30 00:03 | XRay Report ---
CHEST 2 VIEWS INDICATION / CLINICAL INFORMATION: Right chest pain. COMPARISON: 2 views of the chest from 02/22/2019. FINDINGS: SUPPORT DEVICES: None. HEART / MEDIASTINUM: No significant abnormality. LUNGS / PLEURA: No significant pulmonary or pleural abnormality. No pneumothorax. ADDITIONAL FINDINGS: No significant additional findings. IMPRESSION: 1. No acute abnormality of the chest. Signer Name: Khoi Mercado MD Signed: 03/29/2019 11:59 PM Workstation Name: [id number]
== END 2019-03-30 01:00 | disposition left against medical advice (07) ==
LOC: ED 21:45
DX: M54.5 Low back pain (principal); Z53.21 Procedure and treatment not carried out due to patient leaving prior to being seen by health care provider
CPT/HCPCS: 71046

== ENCOUNTER 2019-05-08 12:08 | Emergency (ER) | payer SELFPAY ==
[2019-05-08 12:25] VITALS: BP 134/72
[2019-05-08] MEDS ORDERED: IPRATROPIUM 0.02% NEBU 2.5 ML IH ONE (12:32)
[2019-05-08] MEDS ORDERED: dexAMETHasone 20 MG/5 ML VIAL IM ONE (12:32)
[2019-05-08] MEDS ORDERED: ALBUTEROL 2.5 MG/3 ML NEBU IH ONE ×2 (12:32→14:54)
[2019-05-08] MEDS ORDERED: methylPREDNISolone Sod Succinate 125 MG/2 ML INJ IV ONE (12:34)
--- NOTE | 2019-05-08 12:34 | Emergency Department Report ---
Blank Doc - Documentation Documentation: 24-year-old male that presents with asthma exacerbation. This initial assessment/diagnostic orders/clinical plan/treatment(s) is/are subject to change based on patient's health status, clinical progression and re- assessment by fellow clinical providers in the ED. Further treatment and workup at subsequent clinical providers discretion. Patient/guardians urged not to elope from the ED as their condition may be serious if not clinically assessed and managed. Initial orders include: 1- Patient sent to [facility] for further evaluation and treatment 2- breathing treatment/steroids
--- NOTE | 2019-05-08 12:35 | Emergency Department Report ---
Minor Respiratory - HPI Chief Complaint: Adult Asthma Stated Complaint: CHEST PAIN/WHEEZING/SOB Time Seen by Provider: 05/08/19 12:32 Duration: 1 Day Pain Location: Chest Severity: mild Minor Respiratory: Yes Able to Tolerate Fluids, Yes Cough, No Rhinorrhea, No Sore Throat, No Ear Pain, No Sick Contacts, No Hemoptysis, No Chest Pain, No Shortness of Breath, No Fever Other History: 24 YO AA MALE WELL KNOWN TO US COMES IN WHEEZING. NO FEVER. PT STATES ON NEB AND INHALER AT HOME. I SUSPECT HE HAS NOT GOTTEN THEM FILLED. ED Review of Systems ROS: Stated complaint: CHEST PAIN/WHEEZING/SOB Other details as noted in HPI Comment: All other systems reviewed and negative ED Past Medical Hx - Past Medical History Previous Medical History?: Yes Hx Hypertension: No Hx CVA: No Hx Heart Attack/AMI: No Hx Congestive Heart Failure: No Hx Diabetes: No Hx Deep Vein Thrombosis: No Hx Pulmonary Embolism: No Hx GERD: No Hx Liver Disease: No Hx Renal Disease: No Hx Sickle Cell Disease: No Hx Arthritis: No Hx Headaches / Migraines: No Hx Seizures: No Hx Kidney Stones: No Hx Psychiatric Treatment: No Hx Asthma: Yes Hx COPD: No Hx Tuberculosis: No Hx Dementia: No Hx HIV: No - Surgical History Past Surgical History?: Yes Hx Coronary Stent: No Hx Open Heart Surgery: No Hx Pacemaker: No Hx Internal Defibrillator: No Hx Cholecystectomy: No Hx Appendectomy: No Hx Breast Surgery: No Additional Surgical History: Testicle Torsion, twisted intestine - Family History Family history: no significant - Social History Smoking Status: Never Smoker - Medications Home Medications: Home Medications Medication Instructions Recorded Confirmed Last Taken Type ALBUTEROL NEB's [Proventil 0.083% 2.5 mg IH TID PRN #1 box 05/08/19 Unknown Rx NEBS] Albuterol INH(or & Nicu Only) 2 puff IH QID PRN #1 inhalation 05/08/19 Unknown Rx [ProAir HFA Inhaler] Amoxicillin [Trimox CAP] 500 mg PO BID #20 capsule 05/08/19 Unknown Rx Cetirizine HCl [ZyrTEC] 10 mg PO DAILY #30 capsule 05/08/19 Unknown Rx Fluticasone [Flonase] 1 spray NS QDAY #1 bottle 05/08/19 Unknown Rx predniSONE [Deltasone] 40 mg PO DAILY #10 tablet 05/08/19 Unknown Rx Minor Respiratory Exam - Exam General: Vital signs noted. No distress. Alert and acting appropriately. HEENT: Yes Moist Mucous Membranes, No Pharyngeal Erythema, No Pharyngeal Exudates, No Rhinorrhea, No Conjuctival Injection, No Frontal Tenderness, No Maxillary Tenderness Ear: Neither TM Bulge, Neither TM Erythema, Neither EAC Pain, Neither EAC Discharge Neck: Yes Supple, No Adenopathy Lungs: Yes Wheezes, No Good Air Exchange, No Ronchi, No Stridor, No Cough, No Labored Respirations, No Retractions, No Use of Accessory Muscles, No Other Abnormal Lung Sounds Heart: Yes Regular, No Murmur Abdomen: Yes Normal Bowel Sounds, No Tenderness, No Peritoneal Signs Skin: No Rash, No Edema Neurologic: Alert and oriented, no deficits. Musculoskeletal: Unremarkable. ED Course Vital Signs 05/08/19 12:24 Temperature 97.4 F L Pulse Rate 81 Respiratory 18 Rate Blood Pressure 134/72 O2 Sat by Pulse 95 Oximetry ED Medical Decision Making - Lab Data Result diagrams: 05/08/19 14:59 05/08/19 14:59 - Radiology Data Radiology results: report reviewed, image reviewed - Medical Decision Making Lab Results 05/08/19 05/08/19 05/08/19 Range/Units 14:54 14:59 14:59 WBC 8.7 (4.5-11.0) K/mm3 RBC 5.98 H (3.65-5.03) M/mm3 Hgb 13.2 (11.8-15.2) gm/dl Hct 40.9 (35.5-45.6) % MCV 68 L (84-94) fl MCH 22 L (28-32) pg MCHC 32 (32-34) % RDW 17.1 H (13.2-15.2) % Plt Count 250 (140-440) K/mm3 Lymph % (Auto) 7.1 L (13.4-35.0) % [place] % (Auto) 1.9 (0.0-7.3) % Eos % (Auto) 2.9 (0.0-4.3) % Baso % (Auto) 0.8 (0.0-1.8) % Lymph # 0.6 L (1.2-5.4) K/mm3 [place] # 0.2 (0.0-0.8) K/mm3 Eos # 0.3 (0.0-0.4) K/mm3 Baso # 0.1 (0.0-0.1) K/mm3 Seg Neutrophils % 87.3 H (40.0-70.0) % Seg Neutrophils # 7.6 (1.8-7.7) K/mm3 Sodium 137 (137-145) mmol/L Potassium 4.4 (3.6-5.0) mmol/L Chloride 102.9 (98-107) mmol/L Carbon Dioxide 22 (22-30) mmol/L Anion Gap 17 mmol/L BUN 12 (9-20) mg/dL Creatinine 1.0 (0.8-1.5) mg/dL Estimated GFR > 60 ml/min BUN/Creatinine Ratio 12 % Glucose 93 (75-100) mg/dL Calcium 8.8 (8.4-10.2) mg/dL Total Bilirubin 1.90 H (0.1-1.2) mg/dL AST 32 (5-40) units/L ALT 18 (7-56) units/L Alkaline Phosphatase 72 (35-129) units/L Total Protein 7.0 (6.3-8.2) g/dL Albumin 4.2 (3.9-5) g/dL Albumin/Globulin Ratio 1.5 % Influenza A (Rapid) Negative (Negative) Influenza B (Rapid) Negative (Negative) Vital Signs - 24 hr 05/08/19 05/08/19 12:24 13:02 Temperature 97.4 F L Pulse Rate 81 Pulse Rate [ 99 H Anterior Bilateral Throughout] Respiratory 18 Rate Respiratory 24 Rate [Anterior Bilateral Throughout] Blood Pressure 134/72 O2 Sat by Pulse 95 Oximetry RT TX X 2 SOLUMEDROL/ ROCEPHIN/ NS IV MG X 2 IV XRAY NOTED LABS NOTED ON DC PT TAKING PO WITHOUT DIFFICULTY. TALKING IN FULL SENTENCES. WALKED AROUND ACC WITH SAT 99 ON ROOM AIR. EDUCATED ON HOME CARE- ENCOURAGED TO USE COUPONS GIVEN TO GET RX; AND TO FOLLOW UP WITH PCP. REFERRALS GIVEN PT WAS MONITORED IN ER SEVERAL HOURS PT D/C. - Differential Diagnosis asthma ae Critical care attestation.: If time is entered above; I have spent that time in minutes in the direct care of this critically ill patient, excluding procedure time. ED Disposition Clinical Impression: Asthma, acute, URTI (acute upper respiratory infection) Disposition: DC-01 TO HOME OR SELFCARE Is pt being admited?: No Does the pt Need Aspirin: No Condition: Stable Instructions: Asthma (ED) Additional Instructions: meds as ordered get them filled follow up with pcp in 48 hours for recheck Prescriptions: predniSONE [Deltasone] 40 mg PO DAILY #10 tablet Fluticasone [Flonase] 1 spray NS QDAY #1 bottle Albuterol INH(or & Nicu Only) [ProAir HFA Inhaler] 2 puff IH QID PRN #1 inhalation PRN Reason: Shortness Of Breath ALBUTEROL NEB's [Proventil 0.083% NEBS] 2.5 mg IH TID PRN #1 box PRN Reason: Wheezing Amoxicillin [Trimox CAP] 500 mg PO BID #20 capsule Cetirizine HCl [ZyrTEC] 10 mg PO DAILY #30 capsule Referrals: JESSICA GEORGE MD [Staff Physician] - 3-5 Days Forms: Work/School Release Form(ED) Time of Disposition: 17:14
[2019-05-08] MEDS ORDERED: MAGNESIUM SULFATE 2 GM/50 ML BAG IV ONE ×2 (13:28→14:54)
[2019-05-08] MEDS ORDERED: SODIUM CHLORIDE 0.9% 1000 ML 1,000 ML IV ONE (13:28)
[2019-05-08] MEDS ORDERED: cefTRIAXone/NS 1 GM/50 ML 1 GM/50 ML BAG IV ONE (13:29)
[2019-05-08 15:08] LABS: Basophils # (Auto) 0.1 K/mm3 (0.0-0.1); Basophils % (Auto) 0.8 % (0.0-1.8); Eosinophils # (Auto) 0.3 K/mm3 (0.0-0.4); Eosinophils % (Auto) 2.9 % (0.0-4.3); Hematocrit 40.9 % (35.5-45.6); Hemoglobin 13.2 gm/dl (11.8-15.2); Lymphocytes # (Auto) 0.6 K/mm3 (1.2-5.4); Lymphocytes % (Auto) 7.1 % (13.4-35.0); Mean Corpuscular HGB Conc 32 % (32-34); Monocytes # (Auto) 0.2 K/mm3 (0.0-0.8); Monocytes % (Auto) 1.9 % (0.0-7.3); Platelet Count 250 K/mm3 (140-440); Red Blood Count 5.98 M/mm3 (3.65-5.03); Red Cell Distribution Width 17.1 % (13.2-15.2)
[2019-05-08 15:16] LABS: Mean Corpuscular Volume 68 fl (84-94)
--- NOTE | 2019-05-08 15:18 | XRay Report ---
CHEST 1 VIEW INDICATION: SOB COMPARISON: 03/29/2019 FINDINGS: Support devices: None Heart: Normal and unchanged Lungs/Pleura: No acute pulmonary or pleural findings. IMPRESSION: 1. No acute disease and no interval change. Signer Name: Bj Quintero MD Signed: 05/08/2019 3:14 PM Workstation Name: [id number]
[2019-05-08 15:32] LABS: Alanine Aminotransferase 18 units/L (7-56); Albumin 4.2 g/dL (3.9-5); BUN/Creatinine Ratio 12; Blood Urea Nitrogen 12 mg/dL (9-20); Calcium 8.8 mg/dL (8.4-10.2); Hemolysis Index 10
[2019-05-08] MEDS ORDERED: IBUPROFEN 800 MG TAB PO ONE (16:12)
== END 2019-05-08 17:28 | disposition home or self-care (01) ==
LOC: ED 12:08
DX: J45.909 Unspecified asthma, uncomplicated (principal); J06.9 Acute upper respiratory infection, unspecified
CPT/HCPCS: 36415; 71045; 80053; 85025; 87400; 94640; 94644; 96365; 96366; 96367; 96368; 96375; 99284; J0696; J2930; J3475; J7030

== ENCOUNTER 2019-05-15 19:26 | Emergency (ER) | payer SELFPAY ==
--- NOTE | 2019-05-15 20:07 | Event Note ---
ED Screening Note Date of service: 05/15/19 Time: 20:05 ED Screening Note: 24 y o male presents with asthmatic brochitis exacebation x tday no relief with home meds use of assessory muscle wheeze bilat This initial assessment/diagnostic orders/clinical plan/treatment(s) is/are subject to change based on patients health status, clinical progression and re- assessment by fellow clinical providers in the ED. Further treatment and workup at subsequent clinical providers discretion. Patient/guardian urged not to elope from the ED as their condition may be serious if not clinically assessed and managed. Initial orders include: iv solu, mag and duoneb acc eval
[2019-05-15] MEDS ORDERED: methylPREDNISolone Sod Succinate 125 MG/2 ML INJ ONE (20:14)
[2019-05-15] MEDS ORDERED: IPRATROPIUM/ALBUTEROL SULFATE 3 ML AMPUL.NEB IH ONE ×2 (20:21→20:23)
[2019-05-15] MEDS ORDERED: methylPREDNISolone Sod Succinate 125 MG/2 ML INJ IV ONE (20:24)
[2019-05-15] MEDS ORDERED: MAGNESIUM SULFATE 2 GM/50 ML BAG IV ONE (20:38)
[2019-05-15] MEDS ORDERED: IPRATROPIUM 0.02% NEBU 2.5 ML IH ONE (20:39)
[2019-05-15] MEDS ORDERED: ALBUTEROL 2.5 MG/3 ML NEBU IH ONE (20:39)
--- NOTE | 2019-05-15 21:55 | Emergency Department Report ---
ED General Adult HPI - General Chief complaint: Dyspnea/Respdistress Stated complaint: MIGRAINE/ASTHMA/CHEST PAIN Time Seen by Provider: 05/15/19 20:10 Source: patient Mode of arrival: Ambulatory Limitations: No Limitations - History of Present Illness Initial comments: The patient presents to the emergency department with a chief complaint of asthma attack. Patient states that his asthma began to act up yesterday due to the cold weather. Patient states he has not had relief of home medications. Patient complains of some chest tightness but denies any chest pain. Patient states that he has not had a history of being intubated due to his asthma. Patient has no other complaints. -: days(s) (1) Severity scale (0 -10): 0 Improves with: none Worsens with: none Associated Symptoms: denies other symptoms Treatments Prior to Arrival: none - Related Data Previous Rx's Medication Instructions Recorded Last Taken Type ALBUTEROL NEB's [Proventil 0.083% 2.5 mg IH TID PRN #1 box 05/08/19 Unknown Rx NEBS] Albuterol INH(or & Nicu Only) 2 puff IH QID PRN #1 inhalation 05/08/19 Unknown Rx [ProAir HFA Inhaler] Amoxicillin [Trimox CAP] 500 mg PO BID #20 capsule 05/08/19 Unknown Rx Cetirizine HCl [ZyrTEC] 10 mg PO DAILY #30 capsule 05/08/19 Unknown Rx Fluticasone [Flonase] 1 spray NS QDAY #1 bottle 05/08/19 Unknown Rx predniSONE [Deltasone] 40 mg PO DAILY #10 tablet 05/08/19 Unknown Rx Albuterol INH(or & Nicu Only) 2 puff IH Q4HR PRN #1 inhalation 05/15/19 Unknown Rx [ProAir HFA Inhaler] predniSONE [Deltasone] 20 mg PO DAILY #15 tablet 05/15/19 Unknown Rx Allergies Allergy/AdvReac Type Severity Reaction Status Date / Time No Known Allergies Allergy Verified 05/08/19 12:30 ED Review of Systems ROS: Stated complaint: MIGRAINE/ASTHMA/CHEST PAIN Other details as noted in HPI Comment: All other systems reviewed and negative Constitutional: denies: chills, fever Eyes: denies: eye pain, eye discharge, vision change ENT: denies: ear pain, throat pain Respiratory: shortness of breath, wheezing. denies: cough Cardiovascular: denies: chest pain, palpitations Endocrine: no symptoms reported Gastrointestinal: denies: abdominal pain, nausea, diarrhea Genitourinary: denies: urgency, dysuria Musculoskeletal: denies: back pain, joint swelling, arthralgia Skin: denies: rash, lesions Neurological: denies: headache, weakness, paresthesias Psychiatric: denies: anxiety, depression Hematological/Lymphatic: denies: easy bleeding, easy bruising ED Past Medical Hx - Past Medical History Previous Medical History?: Yes Hx Hypertension: No Hx CVA: No Hx Heart Attack/AMI: No Hx Congestive Heart Failure: No Hx Diabetes: No Hx Deep Vein Thrombosis: No Hx Pulmonary Embolism: No Hx GERD: No Hx Liver Disease: No Hx Renal Disease: No Hx Sickle Cell Disease: No Hx Arthritis: No Hx Headaches / Migraines: No Hx Seizures: No Hx Kidney Stones: No Hx Psychiatric Treatment: No Hx Asthma: Yes Hx COPD: No Hx Tuberculosis: No Hx Dementia: No Hx HIV: No - Surgical History Past Surgical History?: Yes Hx Coronary Stent: No Hx Open Heart Surgery: No Hx Pacemaker: No Hx Internal Defibrillator: No Hx Cholecystectomy: No Hx Appendectomy: No Hx Breast Surgery: No Additional Surgical History: Testicle Torsion, twisted intestine - Social History Smoking Status: Never Smoker Substance Use Type: None - Medications Home Medications: Home Medications Medication Instructions Recorded Confirmed Last Taken Type ALBUTEROL NEB's [Proventil 0.083% 2.5 mg IH TID PRN #1 box 05/08/19 Unknown Rx NEBS] Albuterol INH(or & Nicu Only) 2 puff IH QID PRN #1 inhalation 05/08/19 Unknown Rx [ProAir HFA Inhaler] Amoxicillin [Trimox CAP] 500 mg PO BID #20 capsule 05/08/19 Unknown Rx Cetirizine HCl [ZyrTEC] 10 mg PO DAILY #30 capsule 05/08/19 Unknown Rx Fluticasone [Flonase] 1 spray NS QDAY #1 bottle 05/08/19 Unknown Rx predniSONE [Deltasone] 40 mg PO DAILY #10 tablet 05/08/19 Unknown Rx Albuterol INH(or & Nicu Only) 2 puff IH Q4HR PRN #1 inhalation 05/15/19 Unknown Rx [ProAir HFA Inhaler] predniSONE [Deltasone] 20 mg PO DAILY #15 tablet 05/15/19 Unknown Rx ED Physical Exam - General Limitations: No Limitations General appearance: alert, in no apparent distress - Head Head exam: Present: atraumatic, normocephalic - Eye Eye exam: Present: normal appearance, PERRL, EOMI - ENT ENT exam: Present: mucous membranes moist - Neck Neck exam: Present: normal inspection - Respiratory Respiratory exam: Present: normal lung sounds bilaterally, wheezes. Absent: respiratory distress - Cardiovascular Cardiovascular Exam: Present: regular rate, normal rhythm. Absent: systolic murmur, diastolic murmur, rubs, gallop - GI/Abdominal GI/Abdominal exam: Present: soft, normal bowel sounds. Absent: distended, tenderness - Rectal Rectal exam: Present: deferred - Extremities Exam Extremities exam: Present: normal inspection - Back Exam Back exam: Present: normal inspection - Neurological Exam Neurological exam: Present: alert, oriented X3, CN II-XII intact. Absent: motor sensory deficit - Psychiatric Psychiatric exam: Present: normal affect, normal mood - Skin Skin exam: Present: warm, dry, intact, normal color. Absent: rash ED Course Vital Signs 05/15/19 05/15/19 19:41 21:03 Temperature 99.8 F H Pulse Rate 89 Pulse Rate [ 80 Bilateral Breath Sounds] Respiratory 18 Rate Respiratory 20 Rate [Bilateral Breath Sounds] Blood Pressure 138/96 O2 Sat by Pulse 97 Oximetry ED Medical Decision Making - Medical Decision Making Patient received a DuoNeb breathing treatment followed by an hour-long continuous breathing treatment Patient also received IV Solu-Medrol and IV magnesium Reevaluation of the patient at 9:50 PM the patient states he feels much better and would like to go home. Critical Care Time: Yes Critical care time in (mins) excluding proc time.: 35 Critical care attestation.: If time is entered above; I have spent that time in minutes in the direct care of this critically ill patient, excluding procedure time. ED Disposition Clinical Impression: Asthma attack Disposition: DC-01 TO HOME OR SELFCARE Is pt being admited?: No Does the pt Need Aspirin: No Condition: Stable Instructions: Asthma (ED) Additional Instructions: return if worse Referrals: PRIMARY CARE,MD [Primary Care Provider] - 3-5 Days [facility] [Provider Group] - 3-5 Days [facility] [Provider Group] - 3-5 Days Time of Disposition: 22:04
[2019-05-15 23:26] VITALS: BP 136/98
== END 2019-05-15 23:25 | disposition home or self-care (01) ==
LOC: ED 19:26
DX: J45.901 Unspecified asthma with (acute) exacerbation (principal); Z79.899 Other long term (current) drug therapy
CPT/HCPCS: 93005; 93010; 94640; 94644; 96365; 96375; 99283; J2930; J3475

== ENCOUNTER 2019-05-30 12:03 | Emergency (ER) | payer SELFPAY ==
[2019-05-30] MEDS ORDERED: IPRATROPIUM 0.02% NEBU 2.5 ML IH ONE (13:56)
[2019-05-30] MEDS ORDERED: ALBUTEROL 2.5 MG/3 ML NEBU IH ONE (13:56)
[2019-05-30] MEDS ORDERED: predniSONE 20 MG TAB PO ONE (13:56)
--- NOTE | 2019-05-30 13:58 | Emergency Department Report ---
Chief Complaint: Adult Asthma Stated Complaint: ASTHMA, CHEST PAIN - HPI History of Present Illness: 24 yo AA M with a few days of wheezing, productive cough, SOB. Hx of asthma. No inhaler at home. Out of nebs. - ROS Review of Systems: SOB, wheezing, coughing - Exam Vital Signs: Vital Signs 05/30/19 12:07 Temperature 98.0 F Pulse Rate 80 Respiratory 18 Rate Blood Pressure 137/78 O2 Sat by Pulse 91 Oximetry Physical Exam: Moderate wheezing throughout chest. Mild tachypnea but no accessory muscle use. MSE screening note: Focused history and physical exam performed. Due to findings the following was ordered: Nebulizer treatment Prednisone CXR To fast track Patient discussed with doctor:: BREE WARNER ED Disposition for MSE Condition: Stable
--- NOTE | 2019-05-30 14:58 | XRay Report ---
CHEST 2 VIEWS INDICATION: SOB, cough. COMPARISON: 05/08/2019 FINDINGS: Support devices: None. Heart: Within normal limits. Pulmonary vasculature: Normal. Lungs/pleura: The lungs are normally expanded and clear. No airspace disease or pleural effusion. No pneumothorax. Additional findings: None. IMPRESSION: 1. No acute findings. Signer Name: Jeramie Avalos MD Signed: 05/30/2019 2:54 PM Workstation Name: [id number]
--- NOTE | 2019-05-30 15:03 | Emergency Department Report ---
ED Asthma HPI - General Chief Complaint: Adult Asthma Stated Complaint: ASTHMA, CHEST PAIN Time Seen by Provider: 05/30/19 14:17 Source: patient Mode of arrival: Ambulatory Limitations: No Limitations - History of Present Illness Initial Comments: The 24-year-old male who presents to ED complaining of asthma exacerbation started 3-4 days ago. Patient states that he started a non-intermittent dry cough that got worse. Patient states he ran of his medication. Patient denies fevers/chills/shortness of breath/chest pain/fever . MD Complaint: wheezing -: Gradual Severity: mild, moderate Context: ran out of meds Associated Symptoms: dry cough - Related Data Previous Rx's Medication Instructions Recorded Last Taken Type Albuterol INH(or & Nicu Only) 2 puff IH QID PRN #1 inhalation 05/08/19 Unknown Rx [ProAir HFA Inhaler] Amoxicillin [Trimox CAP] 500 mg PO BID #20 capsule 05/08/19 Unknown Rx Cetirizine HCl [ZyrTEC] 10 mg PO DAILY #30 capsule 05/08/19 Unknown Rx Fluticasone [Flonase] 1 spray NS QDAY #1 bottle 05/08/19 Unknown Rx predniSONE [Deltasone] 40 mg PO DAILY #10 tablet 05/08/19 Unknown Rx Albuterol INH(or & Nicu Only) 2 puff IH Q4HR PRN #1 inhalation 05/15/19 Unknown Rx [ProAir HFA Inhaler] ALBUTEROL NEB's [Proventil 0.083% 2.5 mg IH TID PRN #1 box 05/30/19 Unknown Rx NEBS] Albuterol INH(or & Nicu Only) 2 puff IH QID PRN #8.5 gram 05/30/19 Unknown Rx [ProAir HFA Inhaler] Benzonatate [Tessalon Perles] 100 mg PO Q8HR #30 capsule 05/30/19 Unknown Rx predniSONE [Deltasone] 20 mg PO DAILY #8 tablet 05/30/19 Unknown Rx Allergies Allergy/AdvReac Type Severity Reaction Status Date / Time No Known Allergies Allergy Verified 05/30/19 12:05 ED Review of Systems ROS: Stated complaint: ASTHMA, CHEST PAIN Other details as noted in HPI Comment: All other systems reviewed and negative ED Past Medical Hx - Past Medical History Hx Hypertension: No Hx CVA: No Hx Heart Attack/AMI: No Hx Congestive Heart Failure: No Hx Diabetes: No Hx Deep Vein Thrombosis: No Hx Pulmonary Embolism: No Hx GERD: No Hx Liver Disease: No Hx Renal Disease: No Hx Sickle Cell Disease: No Hx Arthritis: No Hx Headaches / Migraines: No Hx Seizures: No Hx Kidney Stones: No Hx Psychiatric Treatment: No Hx Asthma: Yes Hx COPD: No Hx Tuberculosis: No Hx Dementia: No Hx HIV: No - Surgical History Hx Coronary Stent: No Hx Open Heart Surgery: No Hx Pacemaker: No Hx Internal Defibrillator: No Hx Cholecystectomy: No Hx Appendectomy: No Hx Breast Surgery: No Additional Surgical History: Testicle Torsion, twisted intestine - Social History Smoking Status: Never Smoker Substance Use Type: None - Medications Home Medications: Home Medications Medication Instructions Recorded Confirmed Last Taken Type Albuterol INH(or & Nicu Only) 2 puff IH QID PRN #1 inhalation 05/08/19 Unknown Rx [ProAir HFA Inhaler] Amoxicillin [Trimox CAP] 500 mg PO BID #20 capsule 05/08/19 Unknown Rx Cetirizine HCl [ZyrTEC] 10 mg PO DAILY #30 capsule 05/08/19 Unknown Rx Fluticasone [Flonase] 1 spray NS QDAY #1 bottle 05/08/19 Unknown Rx predniSONE [Deltasone] 40 mg PO DAILY #10 tablet 05/08/19 Unknown Rx Albuterol INH(or & Nicu Only) 2 puff IH Q4HR PRN #1 inhalation 05/15/19 Unknown Rx [ProAir HFA Inhaler] ALBUTEROL NEB's [Proventil 0.083% 2.5 mg IH TID PRN #1 box 05/30/19 Unknown Rx NEBS] Albuterol INH(or & Nicu Only) 2 puff IH QID PRN #8.5 gram 05/30/19 Unknown Rx [ProAir HFA Inhaler] Benzonatate [Tessalon Perles] 100 mg PO Q8HR #30 capsule 05/30/19 Unknown Rx predniSONE [Deltasone] 20 mg PO DAILY #8 tablet 05/30/19 Unknown Rx ED Physical Exam - General Limitations: No Limitations ED Course Vital Signs 05/30/19 05/30/19 05/30/19 12:07 14:21 16:06 Temperature 98.0 F Pulse Rate 80 88 Pulse Rate [ 72 Anterior Bilateral Throughout] Respiratory 18 16 Rate Respiratory 18 Rate [Anterior Bilateral Throughout] Blood Pressure 137/78 Blood Pressure 140/78 [Right] O2 Sat by Pulse 91 94 Oximetry ED Medical Decision Making - Radiology Data Radiology results: report reviewed, image reviewed CHEST 2 VIEWS INDICATION: SOB, cough. COMPARISON: 05/08/2019 FINDINGS: Support devices: None. Heart: Within normal limits. Pulmonary vasculature: Normal. Lungs/pleura: The lungs are normally expanded and clear. No airspace disease or pleural effusion. No pneumothorax. Additional findings: None. IMPRESSION: 1. No acute findings. Signer Name: Jeramie Cabello MD Signed: 05/30/2019 2:54 PM Workstation Name: [id number] Transcribed By: REF Dictated By: JERAMIE CABELLO MD Electronically Authenticated By: JERAMIE CABELLO MD Signed Date/Time: 05/30/19 1454 - Medical Decision Making 24-year-old male presents with a asthma/copd exacerbation. Patient received respiratory breathing treatment in the ED as well as steroids. 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 Patient treated in the ED. Patient was sent home with inhalers and short steroid. Discussed patient to follow up with primary care physician. Referrals given for resources for follow-up. She understands instructions and is sleeping comfortably eating. Asthma exacerbation Critical care attestation.: If time is entered above; I have spent that time in minutes in the direct care of this critically ill patient, excluding procedure time. ED Disposition Clinical Impression: Asthma exacerbation Disposition: DC-01 TO HOME OR SELFCARE Is pt being admited?: No Does the pt Need Aspirin: No Condition: Stable Instructions: Asthma (ED) Additional Instructions: Follow up with pcp Prescriptions: predniSONE [Deltasone] 20 mg PO DAILY #8 tablet Albuterol INH(or & Nicu Only) [ProAir HFA Inhaler] 2 puff IH QID PRN #8.5 gram PRN Reason: Shortness Of Breath ALBUTEROL NEB's [Proventil 0.083% NEBS] 2.5 mg IH TID PRN #1 box PRN Reason: Wheezing Benzonatate [Tessalon Perles] 100 mg PO Q8HR #30 capsule Referrals: PRIMARY CARE, [Primary Care Provider] - 3-5 Days [facility] [Outside] - 3-5 Days [facility] [Outside] - 3-5 Days Forms: Accompanied Note, Work/School Release Form(ED) Time of Disposition: 15:52
[2019-05-30 16:07] VITALS: BP 140/78
== END 2019-05-30 16:07 | disposition home or self-care (01) ==
LOC: ED 12:03
DX: J45.901 Unspecified asthma with (acute) exacerbation (principal); Z79.2 Long term (current) use of antibiotics; Z79.899 Other long term (current) drug therapy
CPT/HCPCS: 71046; 94640; 99283; J7512; 94644

== ENCOUNTER 2019-06-28 12:02 | Emergency (ER) | payer SELFPAY ==
[2019-06-28] MEDS ORDERED: guaiFENesin 100 MG/5 ML ORAL LIQD PO ONE (14:11)
[2019-06-28] MEDS ORDERED: IPRATROPIUM/ALBUTEROL SULFATE 3 ML AMPUL.NEB IH ONE (14:11)
[2019-06-28] MEDS ORDERED: dexAMETHasone 20 MG/5 ML VIAL IM ONE (14:11)
--- NOTE | 2019-06-28 14:13 | Emergency Department Report ---
Minor Respiratory - HPI Chief Complaint: Adult Asthma Stated Complaint: SOB,BODYACHE,MIGRAINES Time Seen by Provider: 06/28/19 14:10 Minor Respiratory: Yes Able to Tolerate Fluids, Yes Cough, No Rhinorrhea, No Sore Throat, No Ear Pain, No Sick Contacts, No Hemoptysis, No Chest Pain, No Shortness of Breath, No Fever Other History: This is a 24-year-old male with a history of asthma usually takes albuterol and is out of his medication presents the ED complaining of productive cough shortness of breath and body aches for the past 3 days. Patient states that he has not had any sick contact. Patient admits to productive cough of yellow-green. Patient also admits migraine headache. Patient denies blurry vision, dizziness, fatigue ED Review of Systems ROS: Stated complaint: SOB,BODYACHE,MIGRAINES Other details as noted in HPI Comment: All other systems reviewed and negative ED Past Medical Hx - Past Medical History Hx Hypertension: No Hx CVA: No Hx Heart Attack/AMI: No Hx Congestive Heart Failure: No Hx Diabetes: No Hx Deep Vein Thrombosis: No Hx Pulmonary Embolism: No Hx GERD: No Hx Liver Disease: No Hx Renal Disease: No Hx Sickle Cell Disease: No Hx Arthritis: No Hx Headaches / Migraines: No Hx Seizures: No Hx Kidney Stones: No Hx Psychiatric Treatment: No Hx Asthma: Yes Hx COPD: No Hx Tuberculosis: No Hx Dementia: No Hx HIV: No - Surgical History Hx Coronary Stent: No Hx Open Heart Surgery: No Hx Pacemaker: No Hx Internal Defibrillator: No Hx Cholecystectomy: No Hx Appendectomy: No Hx Breast Surgery: No Additional Surgical History: Testicle Torsion, twisted intestine - Social History Smoking Status: Never Smoker Substance Use Type: None - Medications Home Medications: Home Medications Medication Instructions Recorded Confirmed Last Taken Type Albuterol INH(or & Nicu Only) 2 puff IH QID PRN #1 inhalation 05/08/19 Unknown Rx [ProAir HFA Inhaler] Fluticasone [Flonase] 1 spray NS QDAY #1 bottle 05/08/19 Unknown Rx predniSONE [Deltasone] 40 mg PO DAILY #10 tablet 05/08/19 Unknown Rx Albuterol INH(or & Nicu Only) 2 puff IH QID PRN #8.5 gram 05/30/19 Unknown Rx [ProAir HFA Inhaler] predniSONE [Deltasone] 20 mg PO DAILY #8 tablet 05/30/19 Unknown Rx ALBUTEROL NEB's [Proventil 0.083% 2.5 mg IH TID PRN #1 box 06/28/19 Unknown Rx NEBS] Albuterol INH(or & Nicu Only) 2 puff IH Q4HR PRN #1 inhalation 06/28/19 Unknown Rx [ProAir HFA Inhaler] Amoxicillin [Trimox CAP] 500 mg PO BID #20 capsule 06/28/19 Unknown Rx Benzonatate [Tessalon Perles] 100 mg PO Q8HR #30 capsule 06/28/19 Unknown Rx Cetirizine HCl [ZyrTEC 10mg cap] 10 mg PO DAILY #30 capsule 06/28/19 Unknown Rx Minor Respiratory Exam - Exam General: Vital signs noted. No distress. Alert and acting appropriately. HEENT: Yes Moist Mucous Membranes, No Pharyngeal Erythema, No Pharyngeal Exudates, No Rhinorrhea, No Conjuctival Injection, No Frontal Tenderness, No Maxillary Tenderness Ear: Neither TM Bulge, Neither TM Erythema, Neither EAC Pain, Neither EAC Discharge Neck: Yes Supple, No Adenopathy Lungs: Yes Good Air Exchange, Yes Wheezes, No Ronchi, No Stridor, No Cough, No Labored Respirations, No Retractions, No Use of Accessory Muscles, No Other Abnormal Lung Sounds Heart: Yes Regular, No Murmur Abdomen: Yes Normal Bowel Sounds, No Tenderness, No Peritoneal Signs Skin: No Rash, No Edema Neurologic: Alert and oriented, no deficits. Musculoskeletal: Unremarkable. ED Medical Decision Making - Radiology Data Radiology results: report reviewed, image reviewed CHEST 2 VIEWS INDICATION: cp/sob. COMPARISON: 05/30/2019 FINDINGS: Support devices: None. Heart: Within normal limits. Lungs/pleura: New streaky right basilar airspace disease with otherwise clear lungs. No pneumothorax. Additional findings: None. IMPRESSION: 1. New streaky right basilar airspace disease. Signer Name: Tutu Macedo MD Signed: 06/28/2019 2:28 PM Workstation Name: [id number] Transcribed By: ALAN Dictated By: Tutu Macedo MD Electronically Authenticated By: Tutu Macedo MD Signed Date/Time: 06/28/19 1428 - Medical Decision Making 24-year-old male presents with asthma exacerbation (Mild) ED course: Patient received a breathing treatment, prednisone, cough suppressant in the ED. Chest x-ray ordered, chest x-ray shows new acute findings. Will treat with antibiotics Patient had no respiratory distress in the ED. Post treatment evaluation: No wheezing heard, no use of accessory muscles, I discussed with the patient to follow up with her primary care physician. I discussed with the patient will be going home on with albuterol inhaler as well as nebulizer Vital signs are normalized, patient is saturation at 99% on room air. I discussed with the patient is symptoms worsen to return to ED immediately. Critical care attestation.: If time is entered above; I have spent that time in minutes in the direct care of this critically ill patient, excluding procedure time. ED Disposition Clinical Impression: Asthma, Upper respiratory infection Disposition: TO HOME OR SELFCARE Is pt being admited?: No Does the pt Need Aspirin: No Condition: Stable Instructions: Asthma (ED) Additional Instructions: Make sure to follow up with the primary care physician as discussed. Take all your medications as you've been prescribed. If you have any worsening symptoms or develop new symptoms please return to ED immediately. Prescriptions: Albuterol INH(or & Nicu Only) [ProAir HFA Inhaler] 2 puff IH Q4HR PRN #1 inhalation PRN Reason: Shortness Of Breath ALBUTEROL NEB's [Proventil 0.083% NEBS] 2.5 mg IH TID PRN #1 box PRN Reason: Wheezing Benzonatate [Tessalon Perles] 100 mg PO Q8HR #30 capsule Amoxicillin [Trimox CAP] 500 mg PO BID #20 capsule Cetirizine HCl [ZyrTEC 10mg cap] 10 mg PO DAILY #30 capsule Referrals: PRIMARY CARE, [Primary Care Provider] - 3-5 Days [facility] [Outside] - 3-5 Days [facility] [Outside] - 3-5 Days Forms: Accompanied Note, Work/School Release Form(ED) Time of Disposition: 15:17
--- NOTE | 2019-06-28 14:32 | XRay Report ---
CHEST 2 VIEWS INDICATION: cp/sob. COMPARISON: 05/30/2019 FINDINGS: Support devices: None. Heart: Within normal limits. Lungs/pleura: New streaky right basilar airspace disease with otherwise clear lungs. No pneumothorax . Additional findings: None. IMPRESSION: 1. New streaky right basilar airspace disease. Signer Name: Tutu Macedo MD Signed: 06/28/2019 2:28 PM Workstation Name: [id number]
[2019-06-28 15:39] VITALS: BP 126/72
== END 2019-06-28 15:39 | disposition home or self-care (01) ==
LOC: ED 12:02
DX: J45.909 Unspecified asthma, uncomplicated (principal); J06.9 Acute upper respiratory infection, unspecified; Z79.899 Other long term (current) drug therapy
CPT/HCPCS: 71046; 96372; 99283; J1100

== ENCOUNTER 2019-07-01 11:24 | Emergency (ER) | payer SELFPAY ==
[2019-07-01] MEDS ORDERED: ALBUTEROL 2.5 MG/3 ML NEBU IH ONE (12:13)
[2019-07-01] MEDS ORDERED: dexAMETHasone 20 MG/5 ML VIAL IM ONE (12:13)
[2019-07-01] MEDS ORDERED: IPRATROPIUM 0.02% NEBU 2.5 ML IH ONE (12:13)
[2019-07-01 12:14] VITALS: BP 121/70
--- NOTE | 2019-07-01 12:18 | Emergency Department Report ---
Blank Doc - Documentation Documentation: 24-year-old male that presents with SOB, wheezing, and cough. This initial assessment/diagnostic orders/clinical plan/treatment(s) is/are subject to change based on patient's health status, clinical progression and re- assessment by fellow clinical providers in the ED. Further treatment and workup at subsequent clinical providers discretion. Patient/guardians urged not to elope from the ED as their condition may be serious if not clinically assessed and managed. Initial orders include: 1- Patient sent to [facility] for further evaluation and treatment 2- xrays 3- breathing treatment
--- NOTE | 2019-07-01 12:41 | XRay Report ---
CHEST 2 VIEWS INDICATION: cough/sob. COMPARISON: 06/28/2019 FINDINGS: Support devices: None. Heart: Within normal limits. Lungs/Pleura: Infiltrate right middle lobe greater than right lower lobe. Interstitial markings are m ildly increased diffusely. No significant pleural effusion. IMPRESSION: 1. Basilar pneumonia greatest at the middle lobe. 2. Mild increased interstitial markings diffusely. Signer Name: Nigel Daniels MD Signed: 07/01/2019 12:37 PM Workstation Name: [id number]
--- NOTE | 2019-07-01 12:54 | Emergency Department Report ---
Minor Respiratory - HPI Chief Complaint: Upper Respiratory Infection Stated Complaint: ASTHMA Time Seen by Provider: 07/01/19 12:12 Duration: 3 Days Severity: moderate Minor Respiratory: Yes Able to Tolerate Fluids, Yes Cough, Yes Shortness of Breath, Yes Fever, No Rhinorrhea, No Sore Throat, No Ear Pain, No Sick Contacts, No Hemoptysis, No Chest Pain Other History: This is a 24-year-old healthy male with a past medical history of asthma who presents the ED complaining of shortness of breath, coughing body aches for the past couple days. Patient states he has had a little bit of fever but otherwise ED Review of Systems ROS: Stated complaint: ASTHMA Other details as noted in HPI Comment: All other systems reviewed and negative ED Past Medical Hx - Past Medical History Previous Medical History?: Yes Hx Hypertension: No Hx CVA: No Hx Heart Attack/AMI: No Hx Congestive Heart Failure: No Hx Diabetes: No Hx Deep Vein Thrombosis: No Hx Pulmonary Embolism: No Hx GERD: No Hx Liver Disease: No Hx Renal Disease: No Hx Sickle Cell Disease: No Hx Arthritis: No Hx Headaches / Migraines: No Hx Seizures: No Hx Kidney Stones: No Hx Psychiatric Treatment: No Hx Asthma: Yes Hx COPD: No Hx Tuberculosis: No Hx Dementia: No Hx HIV: No - Surgical History Past Surgical History?: Yes Hx Coronary Stent: No Hx Open Heart Surgery: No Hx Pacemaker: No Hx Internal Defibrillator: No Hx Cholecystectomy: No Hx Appendectomy: No Hx Breast Surgery: No Additional Surgical History: Testicle Torsion, twisted intestine - Social History Smoking Status: Never Smoker Substance Use Type: None - Medications Home Medications: Home Medications Medication Instructions Recorded Confirmed Last Taken Type Fluticasone [Flonase] 1 spray NS QDAY #1 bottle 05/08/19 Unknown Rx predniSONE [Deltasone] 40 mg PO DAILY #10 tablet 05/08/19 Unknown Rx Albuterol INH(or & Nicu Only) 2 puff IH QID PRN #8.5 gram 05/30/19 Unknown Rx [ProAir HFA Inhaler] predniSONE [Deltasone] 20 mg PO DAILY #8 tablet 05/30/19 Unknown Rx ALBUTEROL NEB's [Proventil 0.083% 2.5 mg IH TID PRN #1 box 06/28/19 Unknown Rx NEBS] Albuterol INH(or & Nicu Only) 2 puff IH Q4HR PRN #1 inhalation 06/28/19 Unknown Rx [ProAir HFA Inhaler] Amoxicillin [Trimox CAP] 500 mg PO BID #20 capsule 06/28/19 Unknown Rx Cetirizine HCl [ZyrTEC 10mg cap] 10 mg PO DAILY #30 capsule 06/28/19 Unknown Rx Albuterol INH(or & Nicu Only) 2 puff IH QID PRN #1 inhalation 07/01/19 Unknown Rx [ProAir HFA Inhaler] Amoxicillin/K Clav Tab [Augmentin 1 tab PO Q12HR #20 tab 07/01/19 Unknown Rx 875 mg] Azithromycin [Zithromax] 250 mg PO DAILY #6 tablet 07/01/19 Unknown Rx Benzonatate [Tessalon Perles] 100 mg PO Q8HR #30 capsule 07/01/19 Unknown Rx Ibuprofen [Motrin] 800 mg PO Q8HR #30 tablet 07/01/19 Unknown Rx Minor Respiratory Exam - Exam General: Vital signs noted. No distress. Alert and acting appropriately. HEENT: Yes Moist Mucous Membranes, No Pharyngeal Erythema, No Pharyngeal Exudates, No Rhinorrhea, No Conjuctival Injection, No Frontal Tenderness, No Maxillary Tenderness Ear: Neither TM Bulge, Neither TM Erythema, Neither EAC Pain, Neither EAC Discharge Neck: Yes Supple, No Adenopathy Lungs: Yes Good Air Exchange, Yes Wheezes (Mild bilateral,), No Ronchi, No Stridor, No Cough, No Labored Respirations, No Retractions, No Use of Accessory Muscles, No Other Abnormal Lung Sounds Heart: Yes Regular, No Murmur Abdomen: Yes Normal Bowel Sounds, No Tenderness, No Peritoneal Signs Skin: No Rash, No Edema Neurologic: Alert and oriented, no deficits. Musculoskeletal: Unremarkable. ED Course Vital Signs 07/01/19 12:11 Temperature 99.6 F Pulse Rate 98 H Respiratory 24 Rate Blood Pressure 121/70 O2 Sat by Pulse 91 Oximetry ED Medical Decision Making - Radiology Data Radiology results: report reviewed, image reviewed Fluoro Time In Minutes: CHEST 2 VIEWS INDICATION: cough/sob. COMPARISON: 06/28/2019 FINDINGS: Support devices: None. Heart: Within normal limits. Lungs/Pleura: Infiltrate right middle lobe greater than right lower lobe. Interstitial markings are mildly increased diffusely. No significant pleural effusion. IMPRESSION: 1. Basilar pneumonia greatest at the middle lobe. 2. Mild increased interstitial markings diffusely. Signer Name: Nigel Daniels MD Signed: 07/01/2019 12:37 PM Workstation Name: [id number] Transcribed By: CHARLES Dictated By: Nigel Daniels MD Electronically Authenticated By: Nigel Daniels MD Signed Date/Time: 07/01/19 1237 - Medical Decision Making 24 year-old male presents with asthma exacerbation with pneumonia ED course: Patient received a breathing treatment, cough suppressant in the ED. Chest x-ray ordered, chest x-ray shows pneumonia, see report above I discussed all findings with the patient. Patient had no respiratory distress in the ED. Post treatment evaluation: No wheezing heard, no use of accessory muscles, I discussed with the patient to follow up with his primary care physician. I discussed with the patient will be going home on with albuterol inhaler as well as nebulizer Vital signs are normalized, patient is saturation at 99% on room air. I discussed with the patient is symptoms worsen to return to ED immediately. t Critical care attestation.: If time is entered above; I have spent that time in minutes in the direct care of this critically ill patient, excluding procedure time. ED Disposition Clinical Impression: Pneumonia, Acute bronchitis Disposition: DC-01 TO HOME OR SELFCARE Is pt being admited?: No Does the pt Need Aspirin: No Condition: Stable Instructions: Acute Bronchitis (ED), Bacterial Pneumonia (ED) Additional Instructions: Make sure to follow up with the primary care physician as discussed. Take all your medications as you've been prescribed. If you have any worsening symptoms or develop new symptoms please return to ED immediately. Prescriptions: Amoxicillin/K Clav Tab [Augmentin 875 mg] 1 tab PO Q12HR #20 tab Ibuprofen [Motrin] 800 mg PO Q8HR #30 tablet Albuterol INH(or & Nicu Only) [ProAir HFA Inhaler] 2 puff IH QID PRN #1 inhalation PRN Reason: Shortness Of Breath Benzonatate [Tessalon Perles] 100 mg PO Q8HR #30 capsule Azithromycin [Zithromax] 250 mg PO DAILY #6 tablet Referrals: PRIMARY CARE, [Primary Care Provider] - 3-5 Days Forms: Accompanied Note, Work/School Release Form(ED) Time of Disposition: 12:57
== END 2019-07-01 14:08 | disposition home or self-care (01) ==
LOC: ED 11:24
DX: J18.9 Pneumonia, unspecified organism (principal); J20.9 Acute bronchitis, unspecified; Z79.899 Other long term (current) drug therapy
CPT/HCPCS: 71046; 96372; 99283; J1100

== ENCOUNTER 2019-07-05 20:54 | Inpatient (IN) | payer OTHER ==
[2019-07-05] MEDS ORDERED: IPRATROPIUM/ALBUTEROL SULFATE 3 ML AMPUL.NEB IH ONE (21:25)
[2019-07-05] MEDS ORDERED: SODIUM CHLORIDE 0.9% 1000 ML 1,000 ML IV ONE (21:47)
[2019-07-05] MEDS ORDERED: IPRATROPIUM 0.02% NEBU 2.5 ML IH ONE (21:47)
[2019-07-05] MEDS ORDERED: dexAMETHasone 20 MG/5 ML VIAL IV ONE (21:47)
[2019-07-05] MEDS ORDERED: ALBUTEROL 2.5 MG/3 ML NEBU IH ONE (21:47)
[2019-07-05] MEDS ORDERED: SODIUM CHLORIDE 0.9% 1000 ML IV SOLN IV ONE (21:48)
--- NOTE | 2019-07-05 22:02 | XRay Report ---
CHEST 2 VIEWS INDICATION: COUGH AND WHEEZING.. COMPARISON: 07/01/2019 FINDINGS: Support devices: None. Heart: Within normal limits. Lungs/Pleura: Increasing basilar infiltrates. No significant pleural effusion. IMPRESSION: Bibasilar pneumonia. Signer Name: Nigel Daniels MD Signed: 07/05/2019 9:57 PM Workstation Name: [id number]
[2019-07-05 22:03] LABS: Hematocrit 39.8 % (35.5-45.6); Hemoglobin 12.3 gm/dl (11.8-15.2); Mean Corpuscular HGB Conc 31 % (32-34); Platelet Count 346 K/mm3 (140-440); Red Blood Count 5.86 M/mm3 (3.65-5.03); Red Cell Distribution Width 16.9 % (13.2-15.2)
[2019-07-05 22:04] LABS: Mean Corpuscular Volume 68 fl (84-94)
[2019-07-05 22:21] LABS: BUN/Creatinine Ratio 13; Blood Urea Nitrogen 13 mg/dL (9-20); Calcium 8.9 mg/dL (8.4-10.2); Hemolysis Index 8
[2019-07-05] MEDS ORDERED: PIPERACIL/TAZOBACTA 4.5/NS 100 4.5 GM/100 ML VIAL IV ONE (22:35)
[2019-07-05 22:43] LABS: Basophils % (Manual) 0 % (0.0-1.8); Total Cells Counted 100
[2019-07-05 22:45] LABS: Anisocytosis Few; Platelet Estimate Consistent w Auto
[2019-07-05] MEDS ORDERED: VANCOMYCIN PHARMACY TO DOSE IV SCH (23:00)
[2019-07-05] MEDS ORDERED: VANCOMYCIN 1,500 MG in SODIUM CHLORIDE 0.9% 500 ML 500 ML IV ONE (23:00)
--- NOTE | 2019-07-05 23:51 | Emergency Department Report ---
ED Shortness of Breath HPI - General Chief Complaint: Adult Asthma Stated Complaint: ASTHMA Time Seen by Provider: 07/05/19 21:40 Source: patient Mode of arrival: Ambulatory Limitations: No Limitations - History of Present Illness Initial Comments: Patient is a 24-year-old male presents emergency room with complaints of an asthma exacerbation that began 2 days ago. He states that he has a dry cough, shortness of breath, chest tightness, clear phlegm. He denies any fever, nausea, vomiting, diarrhea. Patient was evaluated in the emergency department on 06/25/2019 and at that time was diagnosed with a mild pneumonia and given a prescription by amoxicillin by another provider. He then again returned on 06/28/2019 with continued symptoms and it showed worsening pneumonia at that time patient was given a prescription of azithromycin and Augmentin by another provider. Patient presents tonight with a fever, respiratory distress, hypoxia, worsening symptoms. He denies any recent travel. He denies any sick contacts that he is aware of. He is a non-smoker. He denies any other past medical history except for the asthma. - Related Data Previous Rx's Medication Instructions Recorded Last Taken Type Fluticasone [Flonase] 1 spray NS QDAY #1 bottle 05/08/19 Unknown Rx predniSONE [Deltasone] 40 mg PO DAILY #10 tablet 05/08/19 Unknown Rx Albuterol INH(or & Nicu Only) 2 puff IH QID PRN #8.5 gram 05/30/19 Unknown Rx [ProAir HFA Inhaler] predniSONE [Deltasone] 20 mg PO DAILY #8 tablet 05/30/19 Unknown Rx ALBUTEROL NEB's [Proventil 0.083% 2.5 mg IH TID PRN #1 box 06/28/19 Unknown Rx NEBS] Albuterol INH(or & Nicu Only) 2 puff IH Q4HR PRN #1 inhalation 06/28/19 Unknown Rx [ProAir HFA Inhaler] Amoxicillin [Trimox CAP] 500 mg PO BID #20 capsule 06/28/19 Unknown Rx Cetirizine HCl [ZyrTEC 10mg cap] 10 mg PO DAILY #30 capsule 06/28/19 Unknown Rx Albuterol INH(or & Nicu Only) 2 puff IH QID PRN #1 inhalation 07/01/19 Unknown Rx [ProAir HFA Inhaler] Amoxicillin/K Clav Tab [Augmentin 1 tab PO Q12HR #20 tab 07/01/19 Unknown Rx 875 mg] Azithromycin [Zithromax] 250 mg PO DAILY #6 tablet 07/01/19 Unknown Rx Benzonatate [Tessalon Perles] 100 mg PO Q8HR #30 capsule 07/01/19 Unknown Rx Ibuprofen [Motrin] 800 mg PO Q8HR #30 tablet 07/01/19 Unknown Rx Allergies Allergy/AdvReac Type Severity Reaction Status Date / Time No Known Allergies Allergy Verified 05/30/19 12:05 ED Review of Systems ROS: Stated complaint: ASTHMA Other details as noted in HPI Comment: All other systems reviewed and negative ED Past Medical Hx - Past Medical History Previous Medical History?: Yes Hx Hypertension: No Hx CVA: No Hx Heart Attack/AMI: No Hx Congestive Heart Failure: No Hx Diabetes: No Hx Deep Vein Thrombosis: No Hx Pulmonary Embolism: No Hx GERD: No Hx Liver Disease: No Hx Renal Disease: No Hx Sickle Cell Disease: No Hx Arthritis: No Hx Headaches / Migraines: No Hx Seizures: No Hx Kidney Stones: No Hx Psychiatric Treatment: No Hx Asthma: Yes Hx COPD: No Hx Tuberculosis: No Hx Dementia: No Hx HIV: No - Surgical History Past Surgical History?: Yes Hx Coronary Stent: No Hx Open Heart Surgery: No Hx Pacemaker: No Hx Internal Defibrillator: No Hx Cholecystectomy: No Hx Appendectomy: No Hx Breast Surgery: No Additional Surgical History: Testicle Torsion, twisted intestine - Social History Smoking Status: Never Smoker Substance Use Type: None - Medications Home Medications: Home Medications Medication Instructions Recorded Confirmed Last Taken Type Fluticasone [Flonase] 1 spray NS QDAY #1 bottle 05/08/19 Unknown Rx predniSONE [Deltasone] 40 mg PO DAILY #10 tablet 05/08/19 Unknown Rx Albuterol INH(or & Nicu Only) 2 puff IH QID PRN #8.5 gram 05/30/19 Unknown Rx [ProAir HFA Inhaler] predniSONE [Deltasone] 20 mg PO DAILY #8 tablet 05/30/19 Unknown Rx ALBUTEROL NEB's [Proventil 0.083% 2.5 mg IH TID PRN #1 box 06/28/19 Unknown Rx NEBS] Albuterol INH(or & Nicu Only) 2 puff IH Q4HR PRN #1 inhalation 06/28/19 Unknown Rx [ProAir HFA Inhaler] Amoxicillin [Trimox CAP] 500 mg PO BID #20 capsule 06/28/19 Unknown Rx Cetirizine HCl [ZyrTEC 10mg cap] 10 mg PO DAILY #30 capsule 06/28/19 Unknown Rx Albuterol INH(or & Nicu Only) 2 puff IH QID PRN #1 inhalation 07/01/19 Unknown Rx [ProAir HFA Inhaler] Amoxicillin/K Clav Tab [Augmentin 1 tab PO Q12HR #20 tab 07/01/19 Unknown Rx 875 mg] Azithromycin [Zithromax] 250 mg PO DAILY #6 tablet 07/01/19 Unknown Rx Benzonatate [Tessalon Perles] 100 mg PO Q8HR #30 capsule 07/01/19 Unknown Rx Ibuprofen [Motrin] 800 mg PO Q8HR #30 tablet 07/01/19 Unknown Rx ED Physical Exam - General Limitations: No Limitations General appearance: alert, in no apparent distress - Head Head exam: Present: atraumatic, normocephalic - Eye Eye exam: Present: normal appearance - ENT ENT exam: Present: mucous membranes moist - Respiratory Respiratory exam: Present: respiratory distress (moderate), wheezes (bilaterally), decreased breath sounds (bilateral bases), prolonged expiratory. Absent: rales, rhonchi, stridor, chest wall tenderness, accessory muscle use - Cardiovascular Cardiovascular Exam: Present: normal rhythm, tachycardia, normal heart sounds. Absent: diastolic murmur, rubs, gallop - Neurological Exam Neurological exam: Present: alert, oriented X3 - Psychiatric Psychiatric exam: Present: normal affect, normal mood - Skin Skin exam: Present: warm, dry, intact ED Course Vital Signs 07/05/19 07/05/19 07/05/19 21:17 22:04 22:19 Temperature 100.4 F H Pulse Rate 112 H 100 H 97 H Pulse Rate [ Anterior Bilateral Throughout] Pulse Rate [ Anterior Throughout] Respiratory 18 21 25 H Rate Respiratory Rate [Anterior Bilateral Throughout] Respiratory Rate [Anterior Throughout] Blood Pressure 139/77 O2 Sat by Pulse 91 88 94 Oximetry 07/05/19 07/05/19 07/05/19 22:30 22:45 23:02 Temperature Pulse Rate 97 H 94 H Pulse Rate [ 102 H Anterior Bilateral Throughout] Pulse Rate [ 102 H Anterior Throughout] Respiratory 27 H 26 H Rate Respiratory 20 Rate [Anterior Bilateral Throughout] Respiratory 20 Rate [Anterior Throughout] Blood Pressure 118/60 129/72 O2 Sat by Pulse 91 92 Oximetry - Consultations Consultation #1: 07/06/19 23:[address] Patterson, hospitalist who will accept and resume care of patient, will admit patient to the hospitalist service, advised Dr. Patterson that I already filled out CDC form for COVID 19 ED Medical Decision Making - Lab Data Result diagrams: 07/05/19 21:47 07/05/19 21:47 Lab Results 07/05/19 07/05/19 07/05/19 Range/Units 21:47 21:47 21:50 WBC 20.4 H (4.5-11.0) K/mm3 RBC 5.86 H (3.65-5.03) M/mm3 Hgb 12.3 (11.8-15.2) gm/dl Hct 39.8 (35.5-45.6) % MCV 68 L (84-94) fl MCH 21 L (28-32) pg MCHC 31 L (32-34) % RDW 16.9 H (13.2-15.2) % Plt Count 346 (140-440) K/mm3 Add Manual Diff Complete Total Counted 100 Seg Neutrophils % Scientific Software Developer Seg Neuts % (Manual) 95.0 H (40.0-70.0) % Band Neutrophils % 0 % Lymphocytes % (Manual) 2.0 L (13.4-35.0) % Reactive Lymphs % (Man) 0 % Monocytes % (Manual) 1.0 (0.0-7.3) % Eosinophils % (Manual) 2.0 (0.0-4.3) % Basophils % (Manual) 0 (0.0-1.8) % Metamyelocytes % 0 % Myelocytes % 0 % Promyelocytes % 0 % Blast Cells % 0 % Nucleated RBC % Not Reportable Seg Neutrophils # Man 19.4 H (1.8-7.7) K/mm3 Band Neutrophils # 0.0 K/mm3 Lymphocytes # (Manual) 0.4 L (1.2-5.4) K/mm3 Abs React Lymphs (Man) 0.0 K/mm3 Monocytes # (Manual) 0.2 (0.0-0.8) K/mm3 Eosinophils # (Manual) 0.4 (0.0-0.4) K/mm3 Basophils # (Manual) 0.0 (0.0-0.1) K/mm3 Metamyelocytes # 0.0 K/mm3 Myelocytes # 0.0 K/mm3 Promyelocytes # 0.0 K/mm3 Blast Cells # 0.0 K/mm3 WBC Morphology Not Reportable Hypersegmented Neuts Not Reportable Hyposegmented Neuts Not Reportable Hypogranular Neuts Not Reportable Smudge Cells Not Reportable Toxic Granulation Not Reportable Toxic Vacuolation Not Reportable Dohle Bodies Not Reportable Pelger-Huet Anomaly Not Reportable Earle Rods Not Reportable Platelet Estimate Consistent w auto Clumped Platelets Not Reportable Plt Clumps, EDTA Not Reportable Large Platelets Not Reportable Giant Platelets Not Reportable Platelet Satelliting Not Reportable Plt Morphology Comment Not Reportable RBC Morphology Not Reportable Dimorphic RBCs Not Reportable Polychromasia Not Reportable Hypochromasia Not Reportable Poikilocytosis Not Reportable Anisocytosis Few Microcytosis Not Reportable Macrocytosis Not Reportable Spherocytes Not Reportable Pappenheimer Bodies Not Reportable Sickle Cells Not Reportable Target Cells Not Reportable Tear Drop Cells Not Reportable Ovalocytes Not Reportable Helmet Cells Not Reportable [place] Bodies Not Reportable [place] Rings Not Reportable [place] Cells Not Reportable Bite Cells Not Reportable Crenated Cell Not Reportable Elliptocytes Not Reportable Acanthocytes (Spur) Not Reportable Rouleaux Not Reportable Hemoglobin C Crystals Not Reportable Schistocytes Not Reportable Malaria parasites Not Reportable Contreras Bodies Not Reportable Hem Pathologist Commnt No Sodium 134 L (137-145) mmol/L Potassium 4.0 (3.6-5.0) mmol/L Chloride 97.5 L (98-107) mmol/L Carbon Dioxide 22 (22-30) mmol/L Anion Gap 19 mmol/L BUN 13 (9-20) mg/dL Creatinine 1.0 (0.8-1.5) mg/dL Estimated GFR > 60 ml/min BUN/Creatinine Ratio 13 % Glucose 110 H (75-100) mg/dL Lactic Acid 0.90 (0.7-2.0) mmol/L Calcium 8.9 (8.4-10.2) mg/dL Vital Signs 07/05/19 07/05/19 07/05/19 21:17 22:04 22:19 Temperature 100.4 F H Pulse Rate 112 H 100 H 97 H Pulse Rate [ Anterior Bilateral Throughout] Pulse Rate [ Anterior Throughout] Respiratory 18 21 25 H Rate Respiratory Rate [Anterior Bilateral Throughout] Respiratory Rate [Anterior Throughout] Blood Pressure 139/77 O2 Sat by Pulse 91 88 94 Oximetry 07/05/19 07/05/19 07/05/19 22:30 22:45 23:02 Temperature Pulse Rate 97 H 94 H Pulse Rate [ 102 H Anterior Bilateral Throughout] Pulse Rate [ 102 H Anterior Throughout] Respiratory 27 H 26 H Rate Respiratory 20 Rate [Anterior Bilateral Throughout] Respiratory 20 Rate [Anterior Throughout] Blood Pressure 118/60 129/72 O2 Sat by Pulse 91 92 Oximetry - Radiology Data Radiology results: report reviewed CHEST 2 VIEWS INDICATION: COUGH AND WHEEZING.. COMPARISON: 07/01/2019 FINDINGS: Support devices: None. Heart: Within normal limits. Lungs/Pleura: Increasing basilar infiltrates. No significant pleural effusion. IMPRESSION: Bibasilar pneumonia. Signer Name: Nigel Daniels MD Signed: 07/05/2019 9:57 PM Workstation Name: [id number] Transcribed By: ES Dictated By: Nigel Daniels MD Electronically Authenticated By: Nigel Daniels MD Signed Date/Time: 07/05/192156 DD/ 55 TD/TT: - Medical Decision Making Patient is a 24-year-old male presents emergency room with complaints of an asthma exacerbation that began 2 days ago. He states that he has a dry cough, shortness of breath, chest tightness, clear phlegm. He denies any fever, nausea, vomiting, diarrhea. Patient was evaluated in the emergency department on 06/25/2019 and at that time was diagnosed with a mild pneumonia and given a prescription by amoxicillin by another provider. He then again returned on 06/28/2019 with continued symptoms and it showed worsening pneumonia at that time patient was given a prescription of azithromycin and Augmentin by another provider. Patient presents tonight with a fever, respiratory distress, hypoxia, worsening symptoms. He denies any recent travel. He denies any sick contacts that he is aware of. He is a non-smoker. He denies any other past medical history except for the asthma. Vitals with elevated heart rate and temperature and hypoxia. Code sepsis initiated. Patient placed in negative pressure room with droplet precaution. CXR: Bibasilar pneumonia. labs significant for WBC 20k. Discussed case with Dr. Cerna, ER attending who recommended to fill out the CDC form to see if patient needed to be tested for COVID19 and to admit patient to the hospital and give Zosyn and vancomycin. Patient given IV fluids, antibiotics, steroids, nebulizer treatment, and placed on oxygen by nasal cannula. Discussed case with Dr. Patterson, hospitalist who will accept and resume care of patient, will admit patient to the hospitalist service, advised Dr. Patterson that I already filled out CDC form for COVID 19 - Differential Diagnosis PNA, URI, acute bronchitis, asthma, influenza, COVID-19, viral syndrome Critical Care Time: Yes Critical care time in (mins) excluding proc time.: 35 Critical care attestation.: If time is entered above; I have spent that time in minutes in the direct care of this critically ill patient, excluding procedure time. Critical Care Time: Critical care time for history, interpretation of laboratory testing and radiological testing, reevaluation, speaking with hospitalist for admission, filling out form for the CDC for possible COVID testing, receiving IV abx, steroids, multiple breathing treatments. ED Disposition Clinical Impression: Hypoxia Bilateral pneumonia Qualifiers: Pneumonia type: due to unspecified organism Lung location: lower lobe of lung Qualified Code(s): J18.9 - Pneumonia, unspecified organism Sepsis Qualifiers: Sepsis type: sepsis due to unspecified organism Sepsis acute organ dysfunction status: without acute organ dysfunction Qualified Code(s): A41.9 - Sepsis, unspecified organism Asthma exacerbation Qualifiers: Asthma severity: unspecified severity Asthma persistence: unspecified Qualified Code(s): J45.901 - Unspecified asthma with (acute) exacerbation Disposition: OP ADMIT IP TO THIS HOSP Is pt being admited?: Yes Does the pt Need Aspirin: No Condition: Serious Time of Disposition: 23:57
--- NOTE | 2019-07-05 23:58 | History and Physical Report ---
History of Present Illness History of present illness: 24-year-old male with no medical problem comes emergency room with complaints of nonproductive cough shortness of breath. He was seen in the emergency room on June 24 and was given amoxicillin, he states he did not take the antibiotic. His symptoms continued and did not improve he returned to the emergency room on the sixth, he was given Augmentin and azithromycin for which he has been taking. States that his symptoms have not improved to return to the emergency room. In the emergency room he was febrile, hypoxic and in respiratory distress, was given vancomycin, Zosyn Review Of Systems: Constitutional: no weight loss, chills Ears, eyes, nose, mouth and throat: no nasal congestion, no nasal discharge, no sinus pressure, blurry vision, diplopia Neck: No neck pain or rigidity. Cardiovascular: No palpitations, chest pain Respiratory: + shortness of breath, cough Gastrointestinal: No hematochezia Genitourinary : no dysuria, frequency Musculoskeletal: no muscle ache , joint pain Integumentary: no rash, no pruritis Neurological: no parathesias, focal weakness Endocrine: no cold or heat intolerance, no polyuria or polydipsia Hematologic/Lymphatic: no easy bruising, no easy bleeding, no gland swelling Allergic/Immunologic: no urticaria, no angioedema. PAST MEDICAL HISTORY: None PAST SURGICAL HISTORY: None SOCIAL HISTORY: Denies alcohol, tobacco, drugs FAMILY HISTORY: Hypertension Medications and Allergies Allergies Allergy/AdvReac Type Severity Reaction Status Date / Time No Known Allergies Allergy Verified 05/30/19 12:05 Home Medications Medication Instructions Recorded Confirmed Last Taken Type Albuterol INH(or & Nicu Only) 2 puff IH QID PRN #8.5 gram 05/30/19 07/06/19 Unknown Rx [ProAir HFA Inhaler] ALBUTEROL NEB's [Proventil 0.083% 2.5 mg IH TID PRN #1 box 06/28/19 07/06/19 Unknown Rx NEBS] Albuterol INH(or & Nicu Only) 2 puff IH Q4HR PRN #1 inhalation 06/28/19 07/06/19 Unknown Rx [ProAir HFA Inhaler] Albuterol INH(or & Nicu Only) 2 puff IH QID PRN #1 inhalation 07/01/19 07/06/19 Unknown Rx [ProAir HFA Inhaler] Active Meds: Active Medications Vancomycin HCl 1,500 mg/ (Sodium Chloride) 530 mls @ 333.333 mls/hr IV ONCE ONE Stop: 07/06/19 00:35 Exam - Physical Exam Narrative exam: Gen. appearance: Patient lying in bed, no apparent distress, ill-appearing HEENT: Normocephalic, atraumatic, pupils equally round and reactive to light, extraocular movement intact, and no sclericterus,. No JVD or thyromegaly or nodule,neck supple, no carotid bruit ,mucous membranes moist, no exudate or erythema Heart: S1, S2, regular rate and rhythm Lungs: Crackles bilaterally, breathing comfortable Abdomen: Positive bowel sounds, nontender, nondistended, no organomegaly Extremity: no edema, cyanosis, clubbing Skin: No rash, nodules, warm, dry Neuro: Cranial nerves II to XII intact speech is fluent, moves extremities, sensory intact - Constitutional Vitals: Temp Pulse Resp BP Pulse Ox 100.4 F H 102 H 20 129/72 92 07/05/19 21:17 07/05/19 23:02 07/05/19 23:02 07/05/19 22:45 07/05/19 22:45 Results - Labs CBC & Chem 7: 07/05/19 21:47 07/05/19 21:47 Labs: Abnormal lab results 07/05/19 07/05/19 Range/Units 21:47 21:47 WBC 20.4 H (4.5-11.0) K/mm3 RBC 5.86 H (3.65-5.03) M/mm3 MCV 68 L (84-94) fl MCH 21 L (28-32) pg MCHC 31 L (32-34) % RDW 16.9 H (13.2-15.2) % Seg Neuts % (Manual) 95.0 H (40.0-70.0) % Lymphocytes % (Manual) 2.0 L (13.4-35.0) % Seg Neutrophils # Man 19.4 H (1.8-7.7) K/mm3 Lymphocytes # (Manual) 0.4 L (1.2-5.4) K/mm3 Sodium 134 L (137-145) mmol/L Chloride 97.5 L (98-107) mmol/L Glucose 110 H (75-100) mg/dL - Imaging and Cardiology EKG: image reviewed Chest x-ray: report reviewed Assessment and Plan Assessment Community-acquired pneumonia Start IV Rocephin, azithromycin, follow cultures Check CT chest, very ill-appearing young man Consult ID, Department of Health notified, droplet precautions DVT prophylaxis
[2019-07-06] MEDS ORDERED: SODIUM CHLORIDE 0.9% 1000 ML 3,000 ML ONE (00:17)
[2019-07-06] MEDS ORDERED: dexAMETHasone 20 MG/5 ML VIAL ONE (01:05)
--- NOTE | 2019-07-06 02:57 | Cat Scan Report ---
CT angio chest INDICATION: MAIN: SOB, CHEST TIGHTNESS. 100 ML OMNIPAQUE 350. TECHNIQUE: All CT scans at this location are performed using CT dose reduction for ALARA by means of automated e xposure control. Precontrast localizer images were obtained, followed by axial and 3-dimensional reconstruction images , performed at an independent workstation by the special procedure technologist after IV bolus contrast injection. COMPARISON: None available. FINDINGS: Mild subcarinal and bilateral hilar adenopathy. Diffuse, chronic appearing bronchial wall thickening and interstitial lung disease. More focal areas of parenchymal disease in the right middle lobe and b oth lower lobes are consistent with acute bronchopneumonia. No pleural fluid. No evidence of pulmonary embolus. IMPRESSION: 1. Chronic bronchitis and acute bronchopneumonia. 2. Negative for pulmonary embolus. Signer Name: Bj Quintero MD Signed: 07/06/2019 2:52 AM Workstation Name: [id number]
[2019-07-06] MEDS: cefTRIAXone/NS 1 GM/50 ML 1 GM/50 ML BAG IV SCH (09:48)
[2019-07-06] MEDS: ENOXAPARIN 40 MG/0.4 ML INJ SUB-Q SCH (09:48)
[2019-07-06] MEDS ORDERED: ENOXAPARIN 30 MG/0.3 ML INJ SUB-Q SCH (10:00)
--- NOTE | 2019-07-06 17:12 | Progress Note ---
Assessment and Plan - Patient Problems (1) Asthma exacerbation Current Visit: Yes Status: Acute Qualifiers: Asthma severity: unspecified severity Asthma persistence: unspecified Qualified Code(s): J45.901 - Unspecified asthma with (acute) exacerbation Plan to address problem: Patient underlying asthma occasionally has asthma exacerbations every several years. Has not had one this bad now. Patient just has shortness of breath. No fever now. (2) Bilateral pneumonia Current Visit: Yes Status: Acute Qualifiers: Pneumonia type: due to unspecified organism Lung location: lower lobe of lung Qualified Code(s): J18.9 - Pneumonia, unspecified organism Plan to address problem: Bilateral pneumonia. Patient brought in placed on broad-spectrum antibiotics vancomycin and Zosyn. No longer in respiratory distress. Patient has leukocytosis of 20. Rapid flu is negative for AM RSV pending. Continue present treatment follow-up blood culture data. Infectious disease consult. (3) Hypoxia Current Visit: Yes Status: Acute Plan to address problem: Secondary to pneumonia asthma stable with O2. History Interval history: Patient 24-year-old male presents in the ER with productive cough shortness of breath. Patient was seen in several different ERs given p.o. antibiotics. Now returns with fever hypoxemia and respiratory distress. Patient feels better now hemodynamically stable. Patient was placed on vancomycin and Zosyn. Chest x- ray consistent with acute bronchogenic pneumonia. Chest CT consistent with acute bronchogenic pneumonia bilateral hilar adenopathy interstitial lung disease. Patient states he was feeling bad for several days. Explained to him he has pneumonia and will try to find out the etiology patient understands. Hospitalist Physical - Constitutional Vitals: Temp Pulse Resp BP Pulse Ox 97.7 F 84 18 126/69 97 07/06/19 04:08 07/06/19 04:08 07/06/19 04:08 07/06/19 04:08 07/06/19 04:08 General appearance: Present: no acute distress - EENT Eyes: Present: PERRL, EOM intact ENT: hearing intact, clear oral mucosa, dentition normal, no oropharyngeal erythema, no poor dentition, no thrush - Neck Neck: Present: supple, normal ROM. Absent: enlarged thyroid, masses or JVD, cervical LAD - Respiratory Respiratory: bilateral: rhonchi - Cardiovascular Rhythm: regular - Extremities Extremities: no ischemia, pulses intact, pulses symmetrical, No edema, normal temperature, normal color Peripheral Pulses: within normal limits - Abdominal General gastrointestinal: soft, non-tender, non-distended, normal bowel sounds - Integumentary Integumentary: Present: clear, warm, dry, erythema - Psychiatric Psychiatric: appropriate mood/affect, intact judgment & insight, memory intact Results - Labs CBC & Chem 7: 07/05/19 21:47 07/05/19 21:47 Labs: Laboratory Last Values WBC 20.4 K/mm3 (4.5-11.0) H 07/05/19 21:47 RBC 5.86 M/mm3 (3.65-5.03) H 07/05/19 21:47 Hgb 12.3 gm/dl (11.8-15.2) 07/05/19 21:47 Hct 39.8 % (35.5-45.6) 07/05/19 21:47 MCV 68 fl (84-94) L 07/05/19 21:47 MCH 21 pg (28-32) L 07/05/19 21:47 MCHC 31 % (32-34) L 07/05/19 21:47 RDW 16.9 % (13.2-15.2) H 07/05/19 21:47 Plt Count 346 K/mm3 (140-440) 07/05/19 21:47 Add Manual Diff Complete 07/05/19 21:47 Total Counted 100 07/05/19 21:47 Seg Neutrophils % Porcelain Slusher 07/05/19 21:47 Seg Neuts % (Manual) 95.0 % (40.0-70.0) H 07/05/19 21:47 Band Neutrophils % 0 % 07/05/19 21:47 Lymphocytes % (Manual) 2.0 % (13.4-35.0) L 07/05/19 21:47 Reactive Lymphs % (Man) 0 % 07/05/19 21:47 Monocytes % (Manual) 1.0 % (0.0-7.3) 07/05/19 21:47 Eosinophils % (Manual) 2.0 % (0.0-4.3) 07/05/19 21:47 Basophils % (Manual) 0 % (0.0-1.8) 07/05/19 21:47 Metamyelocytes % 0 % 07/05/19 21:47 Myelocytes % 0 % 07/05/19 21:47 Promyelocytes % 0 % 07/05/19 21:47 Blast Cells % 0 % 07/05/19 21:47 Nucleated RBC % Not Reportable 07/05/19 21:47 Seg Neutrophils # Man 19.4 K/mm3 (1.8-7.7) H 07/05/19 21:47 Band Neutrophils # 0.0 K/mm3 07/05/19 21:47 Lymphocytes # (Manual) 0.4 K/mm3 (1.2-5.4) L 07/05/19 21:47 Abs React Lymphs (Man) 0.0 K/mm3 07/05/19 21:47 Monocytes # (Manual) 0.2 K/mm3 (0.0-0.8) 07/05/19 21:47 Eosinophils # (Manual) 0.4 K/mm3 (0.0-0.4) 07/05/19 21:47 Basophils # (Manual) 0.0 K/mm3 (0.0-0.1) 07/05/19 21:47 Metamyelocytes # 0.0 K/mm3 07/05/19 21:47 Myelocytes # 0.0 K/mm3 07/05/19 21:47 Promyelocytes # 0.0 K/mm3 07/05/19 21:47 Blast Cells # 0.0 K/mm3 07/05/19 21:47 WBC Morphology Not Reportable 07/05/19 21:47 Hypersegmented Neuts Not Reportable 07/05/19 21:47 Hyposegmented Neuts Not Reportable 07/05/19 21:47 Hypogranular Neuts Not Reportable 07/05/19 21:47 Smudge Cells Not Reportable 07/05/19 21:47 Toxic Granulation Not Reportable 07/05/19 21:47 Toxic Vacuolation Not Reportable 07/05/19 21:47 Dohle Bodies Not Reportable 07/05/19 21:47 Pelger-Huet Anomaly Not Reportable 07/05/19 21:47 Earle Rods Not Reportable 07/05/19 21:47 Platelet Estimate Consistent w auto 07/05/19 21:47 Clumped Platelets Not Reportable 07/05/19 21:47 Plt Clumps, EDTA Not Reportable 07/05/19 21:47 Large Platelets Not Reportable 07/05/19 21:47 Giant Platelets Not Reportable 07/05/19 21:47 Platelet Satelliting Not Reportable 07/05/19 21:47 Plt Morphology Comment Not Reportable 07/05/19 21:47 RBC Morphology Not Reportable 07/05/19 21:47 Dimorphic RBCs Not Reportable 07/05/19 21:47 Polychromasia Not Reportable 07/05/19 21:47 Hypochromasia Not Reportable 07/05/19 21:47 Poikilocytosis Not Reportable 07/05/19 21:47 Anisocytosis Few 07/05/19 21:47 Microcytosis Not Reportable 07/05/19 21:47 Macrocytosis Not Reportable 07/05/19 21:47 Spherocytes Not Reportable 07/05/19 21:47 Pappenheimer Bodies Not Reportable 07/05/19 21:47 Sickle Cells Not Reportable 07/05/19 21:47 Target Cells Not Reportable 07/05/19 21:47 Tear Drop Cells Not Reportable 07/05/19 21:47 Ovalocytes Not Reportable 07/05/19 21:47 Helmet Cells Not Reportable 07/05/19 21:47 [place] Bodies Not Reportable 07/05/19 21:47 [place] Rings Not Reportable 07/05/19 21:47 [place] Cells Not Reportable 07/05/19 21:47 Bite Cells Not Reportable 07/05/19 21:47 Crenated Cell Not Reportable 07/05/19 21:47 Elliptocytes Not Reportable 07/05/19 21:47 Acanthocytes (Spur) Not Reportable 07/05/19 21:47 Rouleaux Not Reportable 07/05/19 21:47 Hemoglobin C Crystals Not Reportable 07/05/19 21:47 Schistocytes Not Reportable 07/05/19 21:47 Malaria parasites Not Reportable 07/05/19 21:47 Contreras Bodies Not Reportable 07/05/19 21:47 Hem Pathologist Commnt No 07/05/19 21:47 Sodium 134 mmol/L (137-145) L 07/05/19 21:47 Potassium 4.0 mmol/L (3.6-5.0) 07/05/19 21:47 Chloride 97.5 mmol/L (98-107) L 07/05/19 21:47 Carbon Dioxide 22 mmol/L (22-30) 07/05/19 21:47 Anion Gap 19 mmol/L 07/05/19 21:47 BUN 13 mg/dL (9-20) 07/05/19 21:47 Creatinine 1.0 mg/dL (0.8-1.5) 07/05/19 21:47 Estimated GFR > 60 ml/min 07/05/19 21:47 BUN/Creatinine Ratio 13 % 07/05/19 21:47 Glucose 110 mg/dL (75-100) H 07/05/19 21:47 Lactic Acid 0.70 mmol/L (0.7-2.0) 07/06/19 00:50 Calcium 8.9 mg/dL (8.4-10.2) 07/05/19 21:47 Influenza A (Rapid) Negative (Negative) 07/06/19 Unknown Influenza B (Rapid) Negative (Negative) 07/06/19 Unknown Chavez/IV: Voiding Method Toilet IV Catheter Type [Right Peripheral IV Antecubital] Active Medications - Current Medications Current Medications: Generic Name Dose Route Start Last Admin Trade Name Freq PRN Reason Stop Dose Admin Enoxaparin Sodium 40 mg 07/06/19 10:00 07/06/19 09:48 Enoxaparin SUB-Q 40 mg QDAY@1000 LUKAS Administration Ceftriaxone Sodium 1 gm in 50 mls @ 100 mls/hr 07/06/19 10:00 07/06/19 09:48 Rocephin/Ns 1 Gm/50 Ml IV 100 mls/hr Q24HR LUKAS Administration Protocol
[2019-07-06] MEDS ORDERED: ALBUTEROL 2.5 MG/3 ML NEBU IH PRN (18:14)
[2019-07-06] MEDS: IPRATROPIUM/ALBUTEROL SULFATE 3 ML AMPUL.NEB IH SCH (21:05)
[2019-07-06] MEDS: ZOLPIDEM 5 MG TAB PO PRN (22:39)
[2019-07-07] MEDS: IPRATROPIUM/ALBUTEROL SULFATE 3 ML AMPUL.NEB IH SCH ×4 (01:32→19:06)
[2019-07-07] MEDS ORDERED: IPRATROPIUM/ALBUTEROL SULFATE 3 ML AMPUL.NEB IH ONE (08:39)
[2019-07-07] MEDS: cefTRIAXone/NS 1 GM/50 ML 1 GM/50 ML BAG IV SCH (09:42)
[2019-07-07] MEDS: ENOXAPARIN 40 MG/0.4 ML INJ SUB-Q SCH (09:42)
[2019-07-07 11:32] LABS: Basophils % (Auto) 0.1 % (0.0-1.8); Eosinophils # (Auto) 0.1 K/mm3 (0.0-0.4); Eosinophils % (Auto) 0.5 % (0.0-4.3); Hematocrit 37.3 % (35.5-45.6); Hemoglobin 11.7 gm/dl (11.8-15.2); Lymphocytes # (Auto) 0.9 K/mm3 (1.2-5.4); Lymphocytes % (Auto) 6.7 % (13.4-35.0); Mean Corpuscular HGB Conc 32 % (32-34); Mean Corpuscular Volume 67 fl (84-94); Monocytes # (Auto) 0.8 K/mm3 (0.0-0.8); Monocytes % (Auto) 5.8 % (0.0-7.3); Platelet Count 421 K/mm3 (140-440); Red Blood Count 5.58 M/mm3 (3.65-5.03); Red Cell Distribution Width 17.5 % (13.2-15.2)
[2019-07-07 11:52] LABS: Alanine Aminotransferase 40 units/L (7-56); Albumin 3.3 g/dL (3.9-5); BUN/Creatinine Ratio 15; Blood Urea Nitrogen 12 mg/dL (9-20); Calcium 8.5 mg/dL (8.4-10.2); Hemolysis Index 35
--- NOTE | 2019-07-07 12:47 | Progress Note ---
Assessment and Plan - Patient Problems (1) Asthma exacerbation Current Visit: Yes Status: Acute Qualifiers: Asthma severity: unspecified severity Asthma persistence: unspecified Qualified Code(s): J45.901 - Unspecified asthma with (acute) exacerbation Plan to address problem: Patient long history of asthma asthma exacerbation. Responding well to nebulizer treatments. Does not need steroids at this point. Benefits were now outweigh risk of bilateral pneumonia. Mild wheezing few rhonchi. (2) Bilateral pneumonia Current Visit: Yes Status: Acute Qualifiers: Pneumonia type: due to unspecified organism Lung location: lower lobe of lung Qualified Code(s): J18.9 - Pneumonia, unspecified organism Plan to address problem: Patient with bilateral pneumonia responding well to Rocephin. Azithromycin also added. Patient white count is come down. Also fever curve is come down. And clinically patient is much improved. No coughing no wheezing. Afebrile. Continue present management follow-up culture data. (3) Hypoxia Current Visit: Yes Status: Acute Plan to address problem: Hypoxemia resolved. Patient satting greater than 90% on room air. History Interval history: Patient with community-acquired pneumonia. Less shortness of breath today. Patient able to get up and walk to the bathroom any difficulty. No further has any fever since admission. Appears to be defervesced and well with therapy no new concerns. Hospitalist Physical - Constitutional Vitals: Temp Pulse Resp BP Pulse Ox 98.2 F 82 16 142/64 98 07/07/19 05:27 07/07/19 09:06 07/07/19 09:06 07/07/19 05:27 07/07/19 09:05 General appearance: Present: no acute distress - EENT Eyes: Present: PERRL, EOM intact ENT: hearing intact, clear oral mucosa, dentition normal - Neck Neck: Present: supple, normal ROM - Respiratory Respiratory: bilateral: rhonchi - Cardiovascular Rhythm: regular - Extremities Extremities: no ischemia, pulses intact, pulses symmetrical, No edema, normal temperature Peripheral Pulses: within normal limits - Abdominal General gastrointestinal: soft, non-tender, normal bowel sounds - Integumentary Integumentary: Present: clear, warm, dry - Psychiatric Psychiatric: appropriate mood/affect, intact judgment & insight, memory intact - Neurologic Neurologic: CNII-XII intact, moves all extremities Results - Labs CBC & Chem 7: 07/07/19 11:10 07/07/19 11:10 Labs: Laboratory Last Values WBC 14.0 K/mm3 (4.5-11.0) H 07/07/19 11:10 RBC 5.58 M/mm3 (3.65-5.03) H 07/07/19 11:10 Hgb 11.7 gm/dl (11.8-15.2) L 07/07/19 11:10 Hct 37.3 % (35.5-45.6) 07/07/19 11:10 MCV 67 fl (84-94) L 07/07/19 11:10 MCH 21 pg (28-32) L 07/07/19 11:10 MCHC 32 % (32-34) 07/07/19 11:10 RDW 17.5 % (13.2-15.2) H 07/07/19 11:10 Plt Count 421 K/mm3 (140-440) 07/07/19 11:10 Lymph % (Auto) 6.7 % (13.4-35.0) L 07/07/19 11:10 [place] % (Auto) 5.8 % (0.0-7.3) 07/07/19 11:10 Eos % (Auto) 0.5 % (0.0-4.3) 07/07/19 11:10 Baso % (Auto) 0.1 % (0.0-1.8) 07/07/19 11:10 Lymph # 0.9 K/mm3 (1.2-5.4) L 07/07/19 11:10 [place] # 0.8 K/mm3 (0.0-0.8) 07/07/19 11:10 Eos # 0.1 K/mm3 (0.0-0.4) 07/07/19 11:10 Baso # 0.0 K/mm3 (0.0-0.1) 07/07/19 11:10 Add Manual Diff Complete 07/05/19 21:47 Total Counted 100 07/05/19 21:47 Seg Neutrophils % 86.9 % (40.0-70.0) H 07/07/19 11:10 Seg Neuts % (Manual) 95.0 % (40.0-70.0) H 07/05/19 21:47 Band Neutrophils % 0 % 07/05/19 21:47 Lymphocytes % (Manual) 2.0 % (13.4-35.0) L 07/05/19 21:47 Reactive Lymphs % (Man) 0 % 07/05/19 21:47 Monocytes % (Manual) 1.0 % (0.0-7.3) 07/05/19 21:47 Eosinophils % (Manual) 2.0 % (0.0-4.3) 07/05/19 21:47 Basophils % (Manual) 0 % (0.0-1.8) 07/05/19 21:47 Metamyelocytes % 0 % 07/05/19 21:47 Myelocytes % 0 % 07/05/19 21:47 Promyelocytes % 0 % 07/05/19 21:47 Blast Cells % 0 % 07/05/19 21:47 Nucleated RBC % Not Reportable 07/05/19 21:47 Seg Neutrophils # 12.2 K/mm3 (1.8-7.7) H 07/07/19 11:10 Seg Neutrophils # Man 19.4 K/mm3 (1.8-7.7) H 07/05/19 21:47 Band Neutrophils # 0.0 K/mm3 07/05/19 21:47 Lymphocytes # (Manual) 0.4 K/mm3 (1.2-5.4) L 07/05/19 21:47 Abs React Lymphs (Man) 0.0 K/mm3 07/05/19 21:47 Monocytes # (Manual) 0.2 K/mm3 (0.0-0.8) 07/05/19 21:47 Eosinophils # (Manual) 0.4 K/mm3 (0.0-0.4) 07/05/19 21:47 Basophils # (Manual) 0.0 K/mm3 (0.0-0.1) 07/05/19 21:47 Metamyelocytes # 0.0 K/mm3 07/05/19 21:47 Myelocytes # 0.0 K/mm3 07/05/19 21:47 Promyelocytes # 0.0 K/mm3 07/05/19 21:47 Blast Cells # 0.0 K/mm3 07/05/19 21:47 WBC Morphology Not Reportable 07/05/19 21:47 Hypersegmented Neuts Not Reportable 07/05/19 21:47 Hyposegmented Neuts Not Reportable 07/05/19 21:47 Hypogranular Neuts Not Reportable 07/05/19 21:47 Smudge Cells Not Reportable 07/05/19 21:47 Toxic Granulation Not Reportable 07/05/19 21:47 Toxic Vacuolation Not Reportable 07/05/19 21:47 Dohle Bodies Not Reportable 07/05/19 21:47 Pelger-Huet Anomaly Not Reportable 07/05/19 21:47 Earle Rods Not Reportable 07/05/19 21:47 Platelet Estimate Consistent w auto 07/05/19 21:47 Clumped Platelets Not Reportable 07/05/19 21:47 Plt Clumps, EDTA Not Reportable 07/05/19 21:47 Large Platelets Not Reportable 07/05/19 21:47 Giant Platelets Not Reportable 07/05/19 21:47 Platelet Satelliting Not Reportable 07/05/19 21:47 Plt Morphology Comment Not Reportable 07/05/19 21:47 RBC Morphology Not Reportable 07/05/19 21:47 Dimorphic RBCs Not Reportable 07/05/19 21:47 Polychromasia Not Reportable 07/05/19 21:47 Hypochromasia Not Reportable 07/05/19 21:47 Poikilocytosis Not Reportable 07/05/19 21:47 Anisocytosis Few 07/05/19 21:47 Microcytosis Not Reportable 07/05/19 21:47 Macrocytosis Not Reportable 07/05/19 21:47 Spherocytes Not Reportable 07/05/19 21:47 Pappenheimer Bodies Not Reportable 07/05/19 21:47 Sickle Cells Not Reportable 07/05/19 21:47 Target Cells Not Reportable 07/05/19 21:47 Tear Drop Cells Not Reportable 07/05/19 21:47 Ovalocytes Not Reportable 07/05/19 21:47 Helmet Cells Not Reportable 07/05/19 21:47 [place] Bodies Not Reportable 07/05/19 21:47 [place] Rings Not Reportable 07/05/19 21:47 [place] Cells Not Reportable 07/05/19 21:47 Bite Cells Not Reportable 07/05/19 21:47 Crenated Cell Not Reportable 07/05/19 21:47 Elliptocytes Not Reportable 07/05/19 21:47 Acanthocytes (Spur) Not Reportable 07/05/19 21:47 Rouleaux Not Reportable 07/05/19 21:47 Hemoglobin C Crystals Not Reportable 07/05/19 21:47 Schistocytes Not Reportable 07/05/19 21:47 Malaria parasites Not Reportable 07/05/19 21:47 Contreras Bodies Not Reportable 07/05/19 21:47 Hem Pathologist Commnt No 07/05/19 21:47 Sodium 135 mmol/L (137-145) L 07/07/19 11:10 Potassium 4.0 mmol/L (3.6-5.0) 07/07/19 11:10 Chloride 101.0 mmol/L (98-107) 07/07/19 11:10 Carbon Dioxide 21 mmol/L (22-30) L 07/07/19 11:10 Anion Gap 17 mmol/L 07/07/19 11:10 BUN 12 mg/dL (9-20) 07/07/19 11:10 Creatinine 0.8 mg/dL (0.8-1.5) 07/07/19 11:10 Estimated GFR > 60 ml/min 07/07/19 11:10 BUN/Creatinine Ratio 15 % 07/07/19 11:10 Glucose 108 mg/dL (75-100) H 07/07/19 11:10 Lactic Acid 0.70 mmol/L (0.7-2.0) 07/06/19 00:50 Calcium 8.5 mg/dL (8.4-10.2) 07/07/19 11:10 Total Bilirubin 0.60 mg/dL (0.1-1.2) 07/07/19 11:10 AST 27 units/L (5-40) 07/07/19 11:10 ALT 40 units/L (7-56) 07/07/19 11:10 Alkaline Phosphatase 66 units/L (35-129) 07/07/19 11:10 Total Protein 6.7 g/dL (6.3-8.2) 07/07/19 11:10 Albumin 3.3 g/dL (3.9-5) L 07/07/19 11:10 Albumin/Globulin Ratio 1.0 % 07/07/19 11:10 Influenza A (Rapid) Negative (Negative) 07/06/19 Unknown Influenza B (Rapid) Negative (Negative) 07/06/19 Unknown Chavez/IV: Voiding Method Toilet IV Catheter Type [Right Peripheral IV Antecubital] Active Medications - Current Medications Current Medications: Generic Name Dose Route Start Last Admin Trade Name Freq PRN Reason Stop Dose Admin Albuterol 2.5 mg 07/06/19 18:14 07/06/19 18:50 Proventil IH 2.5 mg Q4H PRN Administration Shortness Of Breath Albuterol/Ipratropium 1 ampul 07/06/19 20:00 07/07/19 09:10 Duoneb *Not For Prn Use* IH Not Given Q6HRT [facility] Enoxaparin Sodium 40 mg 07/06/19 10:00 07/07/19 09:42 Enoxaparin SUB-Q 40 mg QDAY@1000 LUKAS Administration Ceftriaxone Sodium 1 gm in 50 mls @ 100 mls/hr 07/06/19 10:00 07/07/19 09:42 Rocephin/Ns 1 Gm/50 Ml IV 100 mls/hr Q24HR LUKAS Administration Protocol Azithromycin 500 mg/ Sodium 250 mls @ 250 mls/hr 07/07/19 13:00 Chloride IV Q24HR LUKAS Protocol Zolpidem Tartrate 10 mg 07/06/19 19:08 07/06/19 22:39 Ambien PO 10 mg QHS PRN Administration Sleep
[2019-07-07] MEDS: AZITHROMYCIN 500 MG in SODIUM CHLORIDE 0.9% 250ML 250 ML IV SCH (14:44)
[2019-07-07] MEDS: ZOLPIDEM 5 MG TAB PO PRN (23:21)
[2019-07-08] MEDS: IPRATROPIUM/ALBUTEROL SULFATE 3 ML AMPUL.NEB IH SCH ×3 (09:18→20:31)
[2019-07-08] MEDS: cefTRIAXone/NS 1 GM/50 ML 1 GM/50 ML BAG IV SCH (10:15)
[2019-07-08] MEDS: ENOXAPARIN 40 MG/0.4 ML INJ SUB-Q SCH (10:16)
[2019-07-08] MEDS: AZITHROMYCIN 500 MG in SODIUM CHLORIDE 0.9% 250ML 250 ML IV SCH (11:43)
--- NOTE | 2019-07-08 16:54 | Consultation ---
History of Present Illness - Reason for Consult Consult date: 07/08/19 - History of Present Illness 24-year-old male with no past medical history admitted to the hospital with complaints of cough and shortness of breath. He notes the symptoms initially began 2 weeks ago, and presented to the emergency room on June 24. At that time he was prescribed amoxicillin, however did not take the antibiotic. As a result his symptoms progressed to the point where he returned to the emergency room on June 27. He was then given Augmentin and azithromycin, which he was compliant with. Despite that antibiotic therapy symptoms did not improve and he returned to the emergency room, and was admitted at that time. At that time he was found to be febrile, hypoxic, and in respiratory distress. Febrile on admission to 100.4, which has resolved. His initial white count was 20, which is improved to 14. He is currently receiving ceftriaxone and azithromycin. Blood cultures are pending, influenza is negative. Imaging personally reviewed: Chest CT bilateral bronchopneumonia, right greater than left. Review of Systems: Bold if positive, otherwise negative General: fevers, chills, rigors HEENT: visual disturbance, diplopia, eye pain Respiratory: cough, sputum, hemoptysis, shortness of breath Cardiovascular: chest pain, syncope Gastrointestinal: nausea, vomiting, diarrhea, abdominal pain Genitourinary: dysuria, hematuria, flank pain Musculoskeletal: neck pain, back pain, joint pain, edema Neurologic: headaches, seizures Hematologic: easy bruising or bleeding Endocrine: night sweats, acute weight loss Skin: rash, jaundice, redness Psychiatric: suicidal, homicidal ideation Past History Past Medical History: No medical history Past Surgical History: No surgical history Social history: single Family history: no significant family history Medications and Allergies Allergies Allergy/AdvReac Type Severity Reaction Status Date / Time No Known Allergies Allergy Verified 05/30/19 12:05 Home Medications Medication Instructions Recorded Confirmed Last Taken Type Albuterol INH(or & Nicu Only) 2 puff IH QID PRN #8.5 gram 05/30/19 07/06/19 Unknown Rx [ProAir HFA Inhaler] ALBUTEROL NEB's [Proventil 0.083% 2.5 mg IH TID PRN #1 box 06/28/19 07/06/19 Unknown Rx NEBS] Albuterol INH(or & Nicu Only) 2 puff IH Q4HR PRN #1 inhalation 06/28/19 07/06/19 Unknown Rx [ProAir HFA Inhaler] Albuterol INH(or & Nicu Only) 2 puff IH QID PRN #1 inhalation 07/01/19 07/06/19 Unknown Rx [ProAir HFA Inhaler] Active Meds: Active Medications Albuterol (Proventil) 2.5 mg IH Q4H PRN PRN Reason: Shortness Of Breath Last Admin: 07/06/19 18:50 Dose: 2.5 mg Documented by: Albuterol/Ipratropium (Duoneb *Not For Prn Use*) 1 ampul IH TIDRT [facility] Last Admin: 07/08/19 14:48 Dose: 1 ampul Documented by: Azithromycin (Zithromax) 500 mg PO QDAY [facility] Stop: 07/11/19 10:01 Enoxaparin Sodium (Enoxaparin) 40 mg SUB-Q QDAY@1000 LUKAS Last Admin: 07/08/19 10:16 Dose: 40 mg Documented by: Ceftriaxone Sodium (Rocephin/Ns 1 Gm/50 Ml) 1 gm in 50 mls @ 100 mls/hr IV Q24HR [facility]; Protocol Last Admin: 07/08/19 10:15 Dose: 100 mls/hr Documented by: Zolpidem Tartrate (Ambien) 10 mg PO QHS PRN PRN Reason: Sleep Last Admin: 07/07/19 23:21 Dose: 10 mg Documented by: Physical Examination - Physical Exam Narrative exam: Physical Exam: Constitutional: Alert, cooperative. No acute distress Head, Ears, Nose: Normocephalic, atraumatic. External ears, nose normal Eyes: Conjunctivae/corneas clear. No icterus. No ptosis. Neck: Supple, no meningeal signs Oral: dentition fair, no thrush Cardiovascular: S1, S2 normal. Respiratory: Good air entry, clear to auscultation bilaterally GI: Soft, non-tender; bowel sounds normal. No peritoneal signs. Musculoskeletal: No pedal edema, no cyanosis. Skin: No rash or abscess Hem/Lymphatic: No palpable cervical or supraclavicular nodes. No lymphangitis Psych: Mood ok. Affect normal Neurological: Awake, alert, oriented. No gross abnormality - Constitutional Vitals: Vital Signs Temp Pulse Resp BP Pulse Ox 98.3 F 88 18 103/68 98 07/08/19 05:18 07/08/19 14:53 07/08/19 14:53 07/08/19 05:18 07/08/19 09:31 Temperature -Last 24 Hours Temperature 98.3 F Temperature 98.2 F Temperature 98.2 F Temperature 97.5 F Results - Labs CBC & Chem 7: 07/07/19 11:10 07/07/19 11:10 Assessment and Plan Cultures: Blood culture 07/05/2019 no growth to date A/P: 24-year-old male no past medical history admitted with pneumonia. #COVID-19 rule out: Patient with bilateral pneumonia, no sick contacts, no recent travel. He does have an elevated white count which is not common in COVID-19, however bilateral pneumonia is more common. COVID-19 form already filled out, which I greatly appreciate. Continue contact and droplet precautions until test results. #Pneumonia: Possibly bacterial given high white count. Would obtain procalcitonin in the morning labs. Continue empiric ceftriaxone azithromycin as white count has responded. Recs: -Continue empiric ceftriaxone and azithromycin -Continue droplet and contact precautions -Follow-up with [facility] for COVID-19 testing results -Order procalcitonin for morning labs Thank you for the consult, will continue to follow MD Y[facility] M: [phone] O: [phone] F: [phone]
--- NOTE | 2019-07-08 17:18 | Progress Note ---
Assessment and Plan Assessment and plan: Patient with community-acquired pneumonia. Less shortness of breath today. Patient able to get up and walk to the bathroom any difficulty. No further has any fever since admission. Appears to be defervesced and well with therapy no new concerns. (1) Asthma exacerbation Current Visit: Yes Status: Acute Qualifiers: Asthma severity: unspecified severity Asthma persistence: unspecified Qualified Code(s): J45.901 - Unspecified asthma with (acute) exacerbation Plan to address problem: Patient long history of asthma asthma exacerbation. Responding well to nebulizer treatments. Does not need steroids at this point. Benefits were now outweigh risk of bilateral pneumonia. Mild wheezing few rhonchi. #COVID-19 rule out: Patient with bilateral pneumonia, no sick contacts, no recent travel. He does have an elevated white count which is not common in COVID-19, however bilateral pneumonia is more common. COVID-19 form already filled out,. Continue contact and droplet precautions until test results. (2) Bilateral pneumonia Current Visit: Yes Status: Acute Qualifiers: Pneumonia type: due to unspecified organism Lung location: lower lobe of lung Qualified Code(s): J18.9 - Pneumonia, unspecified organism Plan to address problem: Patient with bilateral pneumonia responding well to Rocephin. Azithromycin also added. Patient white count is come down. Also fever curve is come down. And clinically patient is much improved. No coughing no wheezing. Afebrile. Continue present management follow-up culture data. (3) Hypoxia Current Visit: Yes Status: Acute Plan to address problem: Hypoxemia resolved. Patient satting greater than 90% on room air. Anticipate discharge soon as patient is improving History Interval history: Patient seen and examined anxious to be discharged states that he is feeling better. Understands that we are still awaiting results of his test. Hospitalist Physical - Physical exam Narrative exam: General appearance: Present: no acute distress - EENT Eyes: Present: PERRL, EOM intact ENT: hearing intact, clear oral mucosa, dentition normal - Neck Neck: Present: supple, normal ROM - Respiratory Respiratory: bilateral: rhonchi - Cardiovascular Rhythm: regular - Extremities Extremities: no ischemia, pulses intact, pulses symmetrical, No edema, normal temperature Peripheral Pulses: within normal limits - Abdominal General gastrointestinal: soft, non-tender, normal bowel sounds - Integumentary Integumentary: Present: clear, warm, dry - Psychiatric Psychiatric: appropriate mood/affect, intact judgment & insight, memory intact - Neurologic Neurologic: CNII-XII intact, moves all extremities - Constitutional Vitals: Temp Pulse Resp BP Pulse Ox 98.3 F 88 18 103/68 98 07/08/19 05:18 07/08/19 14:53 07/08/19 14:53 07/08/19 05:18 07/08/19 09:31 General appearance: Present: no acute distress Results - Labs CBC & Chem 7: 07/09/19 06:15 07/07/19 11:10 Labs: Laboratory Last Values WBC 14.0 K/mm3 (4.5-11.0) H 07/07/19 11:10 RBC 5.58 M/mm3 (3.65-5.03) H 07/07/19 11:10 Hgb 11.7 gm/dl (11.8-15.2) L 07/07/19 11:10 Hct 37.3 % (35.5-45.6) 07/07/19 11:10 MCV 67 fl (84-94) L 07/07/19 11:10 MCH 21 pg (28-32) L 07/07/19 11:10 MCHC 32 % (32-34) 07/07/19 11:10 RDW 17.5 % (13.2-15.2) H 07/07/19 11:10 Plt Count 421 K/mm3 (140-440) 07/07/19 11:10 Lymph % (Auto) 6.7 % (13.4-35.0) L 07/07/19 11:10 Stephenson % (Auto) 5.8 % (0.0-7.3) 07/07/19 11:10 Eos % (Auto) 0.5 % (0.0-4.3) 07/07/19 11:10 Baso % (Auto) 0.1 % (0.0-1.8) 07/07/19 11:10 Lymph # 0.9 K/mm3 (1.2-5.4) L 07/07/19 11:10 Stephenson # 0.8 K/mm3 (0.0-0.8) 07/07/19 11:10 Eos # 0.1 K/mm3 (0.0-0.4) 07/07/19 11:10 Baso # 0.0 K/mm3 (0.0-0.1) 07/07/19 11:10 Add Manual Diff Complete 07/05/19 21:47 Total Counted 100 07/05/19 21:47 Seg Neutrophils % 86.9 % (40.0-70.0) H 07/07/19 11:10 Seg Neuts % (Manual) 95.0 % (40.0-70.0) H 07/05/19 21:47 Band Neutrophils % 0 % 07/05/19 21:47 Lymphocytes % (Manual) 2.0 % (13.4-35.0) L 07/05/19 21:47 Reactive Lymphs % (Man) 0 % 07/05/19 21:47 Monocytes % (Manual) 1.0 % (0.0-7.3) 07/05/19 21:47 Eosinophils % (Manual) 2.0 % (0.0-4.3) 07/05/19 21:47 Basophils % (Manual) 0 % (0.0-1.8) 07/05/19 21:47 Metamyelocytes % 0 % 07/05/19 21:47 Myelocytes % 0 % 07/05/19 21:47 Promyelocytes % 0 % 07/05/19 21:47 Blast Cells % 0 % 07/05/19 21:47 Nucleated RBC % Not Reportable 07/05/19 21:47 Seg Neutrophils # 12.2 K/mm3 (1.8-7.7) H 07/07/19 11:10 Seg Neutrophils # Man 19.4 K/mm3 (1.8-7.7) H 07/05/19 21:47 Band Neutrophils # 0.0 K/mm3 07/05/19 21:47 Lymphocytes # (Manual) 0.4 K/mm3 (1.2-5.4) L 07/05/19 21:47 Abs React Lymphs (Man) 0.0 K/mm3 07/05/19 21:47 Monocytes # (Manual) 0.2 K/mm3 (0.0-0.8) 07/05/19 21:47 Eosinophils # (Manual) 0.4 K/mm3 (0.0-0.4) 07/05/19 21:47 Basophils # (Manual) 0.0 K/mm3 (0.0-0.1) 07/05/19 21:47 Metamyelocytes # 0.0 K/mm3 07/05/19 21:47 Myelocytes # 0.0 K/mm3 07/05/19 21:47 Promyelocytes # 0.0 K/mm3 07/05/19 21:47 Blast Cells # 0.0 K/mm3 07/05/19 21:47 WBC Morphology Not Reportable 07/05/19 21:47 Hypersegmented Neuts Not Reportable 07/05/19 21:47 Hyposegmented Neuts Not Reportable 07/05/19 21:47 Hypogranular Neuts Not Reportable 07/05/19 21:47 Smudge Cells Not Reportable 07/05/19 21:47 Toxic Granulation Not Reportable 07/05/19 21:47 Toxic Vacuolation Not Reportable 07/05/19 21:47 Dohle Bodies Not Reportable 07/05/19 21:47 Pelger-Huet Anomaly Not Reportable 07/05/19 21:47 Earle Rods Not Reportable 07/05/19 21:47 Platelet Estimate Consistent w auto 07/05/19 21:47 Clumped Platelets Not Reportable 07/05/19 21:47 Plt Clumps, EDTA Not Reportable 07/05/19 21:47 Large Platelets Not Reportable 07/05/19 21:47 Giant Platelets Not Reportable 07/05/19 21:47 Platelet Satelliting Not Reportable 07/05/19 21:47 Plt Morphology Comment Not Reportable 07/05/19 21:47 RBC Morphology Not Reportable 07/05/19 21:47 Dimorphic RBCs Not Reportable 07/05/19 21:47 Polychromasia Not Reportable 07/05/19 21:47 Hypochromasia Not Reportable 07/05/19 21:47 Poikilocytosis Not Reportable 07/05/19 21:47 Anisocytosis Few 07/05/19 21:47 Microcytosis Not Reportable 07/05/19 21:47 Macrocytosis Not Reportable 07/05/19 21:47 Spherocytes Not Reportable 07/05/19 21:47 Pappenheimer Bodies Not Reportable 07/05/19 21:47 Sickle Cells Not Reportable 07/05/19 21:47 Target Cells Not Reportable 07/05/19 21:47 Tear Drop Cells Not Reportable 07/05/19 21:47 Ovalocytes Not Reportable 07/05/19 21:47 Helmet Cells Not Reportable 07/05/19 21:47 Abarca-Fries Bodies Not Reportable 07/05/19 21:47 [place] Rings Not Reportable 07/05/19 21:47 Jeancarlos Cells Not Reportable 07/05/19 21:47 Bite Cells Not Reportable 07/05/19 21:47 Crenated Cell Not Reportable 07/05/19 21:47 Elliptocytes Not Reportable 07/05/19 21:47 Acanthocytes (Spur) Not Reportable 07/05/19 21:47 Rouleaux Not Reportable 07/05/19 21:47 Hemoglobin C Crystals Not Reportable 07/05/19 21:47 Schistocytes Not Reportable 07/05/19 21:47 Malaria parasites Not Reportable 07/05/19 21:47 Contreras Bodies Not Reportable 07/05/19 21:47 Hem Pathologist Commnt No 07/05/19 21:47 Sodium 135 mmol/L (137-145) L 07/07/19 11:10 Potassium 4.0 mmol/L (3.6-5.0) 07/07/19 11:10 Chloride 101.0 mmol/L (98-107) 07/07/19 11:10 Carbon Dioxide 21 mmol/L (22-30) L 07/07/19 11:10 Anion Gap 17 mmol/L 07/07/19 11:10 BUN 12 mg/dL (9-20) 07/07/19 11:10 Creatinine 0.8 mg/dL (0.8-1.5) 07/07/19 11:10 Estimated GFR > 60 ml/min 07/07/19 11:10 BUN/Creatinine Ratio 15 % 07/07/19 11:10 Glucose 108 mg/dL (75-100) H 07/07/19 11:10 Lactic Acid 0.70 mmol/L (0.7-2.0) 07/06/19 00:50 Calcium 8.5 mg/dL (8.4-10.2) 07/07/19 11:10 Total Bilirubin 0.60 mg/dL (0.1-1.2) 07/07/19 11:10 AST 27 units/L (5-40) 07/07/19 11:10 ALT 40 units/L (7-56) 07/07/19 11:10 Alkaline Phosphatase 66 units/L (35-129) 07/07/19 11:10 Total Protein 6.7 g/dL (6.3-8.2) 07/07/19 11:10 Albumin 3.3 g/dL (3.9-5) L 07/07/19 11:10 Albumin/Globulin Ratio 1.0 % 07/07/19 11:10 Influenza A (Rapid) Negative (Negative) 07/06/19 Unknown Influenza B (Rapid) Negative (Negative) 07/06/19 Unknown Chavez/IV: Voiding Method Toilet IV Catheter Type [Left Forearm INT / Saline Lock ] IV Catheter Type [Right Peripheral IV Antecubital] Active Medications - Current Medications Current Medications: Generic Name Dose Route Start Last Admin Trade Name Freq PRN Reason Stop Dose Admin Albuterol 2.5 mg 07/06/19 18:14 07/06/19 18:50 Proventil IH 2.5 mg Q4H PRN Administration Shortness Of Breath Albuterol/Ipratropium 1 ampul 07/08/19 08:00 07/08/19 14:48 Duoneb *Not For Prn Use* IH 1 ampul TIDRT LUKAS Administration Azithromycin 500 mg 07/09/19 10:00 Zithromax PO 07/11/19 10:01 QDAY LUKAS Enoxaparin Sodium 40 mg 07/06/19 10:00 07/08/19 10:16 Enoxaparin SUB-Q 40 mg QDAY@1000 LUKAS Administration Ceftriaxone Sodium 1 gm in 50 mls @ 100 mls/hr 07/06/19 10:00 07/08/19 10:15 Rocephin/Ns 1 Gm/50 Ml IV 100 mls/hr Q24HR LUKAS Administration Protocol Zolpidem Tartrate 10 mg 07/06/19 19:08 07/07/19 23:21 Ambien PO 10 mg QHS PRN Administration Sleep
[2019-07-08 23:31] VITALS: BP 104/68
[2019-07-09 06:55] LABS: Basophils # (Auto) 0.1 K/mm3 (0.0-0.1); Basophils % (Auto) 0.9 % (0.0-1.8); Eosinophils # (Auto) 0.3 K/mm3 (0.0-0.4); Eosinophils % (Auto) 3.3 % (0.0-4.3); Hemoglobin 12.8 gm/dl (11.8-15.2); Lymphocytes % (Auto) 11.8 % (13.4-35.0); Mean Corpuscular HGB Conc 32 % (32-34); Monocytes # (Auto) 0.5 K/mm3 (0.0-0.8); Monocytes % (Auto) 6.1 % (0.0-7.3); Platelet Count 460 K/mm3 (140-440); Red Blood Count 5.95 M/mm3 (3.65-5.03); Red Cell Distribution Width 17.3 % (13.2-15.2)
[2019-07-09 07:06] LABS: Mean Corpuscular Volume 67 fl (84-94)
[2019-07-09] MEDS: IPRATROPIUM/ALBUTEROL SULFATE 3 ML AMPUL.NEB IH SCH (08:31)
[2019-07-09] MEDS: cefTRIAXone/NS 1 GM/50 ML 1 GM/50 ML BAG IV SCH (09:12)
[2019-07-09] MEDS: ENOXAPARIN 40 MG/0.4 ML INJ SUB-Q SCH (09:12)
[2019-07-09] MEDS ORDERED: AZITHROMYCIN 250 MG TAB PO SCH (10:00)
--- NOTE | 2019-07-09 12:43 | Discharge Summary ---
Providers - Providers Date of Admission: 07/05/19 23:57 Attending physician: SAE MARIE MD 07/08/19 08:52 Consult to Physician [CONS] Routine Comment: Consulting Provider: QI DOOLEY Physician Instructions: Reason For Exam: BILATERAL PNEUMONIA [facility] Hospital[facility] Condition: Serious Hospital course: Patient with community-acquired pneumonia. Less shortness of breath today. Patient able to get up and walk to the bathroom any difficulty. No further has any fever since admission. Appears to be defervesced and well with therapy no new concerns. (1) Asthma exacerbation Current Visit: Yes Status: Acute Qualifiers: Asthma severity: unspecified severity Asthma persistence: unspecified Qualified Code(s): J45.901 - Unspecified asthma with (acute) exacerbation Plan to address problem: Patient long history of asthma asthma exacerbation. Responding well to nebulizer treatments. Does not need steroids at this point. Benefits were now outweigh risk of bilateral pneumonia. Mild wheezing few rhonchi. #COVID-19 rule out: Patient with bilateral pneumonia, no sick contacts, no recent travel. He does have an elevated white count which is not common in COVID-19, however bilateral pneumonia is more common. COVID-19 form already filled out,. Continue contact and droplet precautions until test results. (2) Bilateral pneumonia Current Visit: Yes Status: Acute Qualifiers: Pneumonia type: due to unspecified organism Lung location: lower lobe of lung Qualified Code(s): J18.9 - Pneumonia, unspecified organism Plan to address problem: Patient with bilateral pneumonia responding well to Rocephin. Azithromycin also added. Patient white count is come down. Also fever curve is come down. And clinically patient is much improved. No coughing no wheezing. Afebrile. Continue present management follow-up culture data. (3) Hypoxia Current Visit: Yes Status: Acute Plan to address problem: Hypoxemia resolved. Patient satting greater than 90% on room air. Anticipate discharge soon as patient is improving Disposition: DC-01 TO HOME OR SELFCARE Exam - Constitutional Vitals: Temp Pulse Resp BP Pulse Ox 98.2 F 88 18 104/68 96 07/08/19 23:27 07/09/19 08:33 07/09/19 08:33 07/08/19 23:27 07/09/19 08:33 Plan Activity: advance as tolerated, fall precautions, other (Must self Quarantine for 15 days at home Unless test result from [facility] is negative for COVID 19) Diet: low fat Special Instructions: record daily weights, record daily BP diary Additional Instructions: Must self quaratine at home unless the test result for Covid 19 (Coronavirus) comes back negative then you can stop the self quaratine. If you must leave home, you are required to wear a Mask at all times. When at home to prevent Infecting family members you must wear a MASK. See additional instructions in your packet about home enviroment. [facility] KECIA [Primary Care Provider] - 3-5 Days NBA STROUD MD [Staff Physician] - 7 Days Prescriptions: Fluticasone/Salmeterol [Advair Diskus 250-50 mcg] 1 puff IH BID #1 disk.w.dev levoFLOXacin [Levaquin] 750 mg PO QDAY #5 tablet Albuterol INH(or & Nicu Only) [ProAir HFA Inhaler] 2 puff IH QID PRN #8.5 gram PRN Reason: Shortness Of Breath
--- NOTE | 2019-07-09 13:29 | Progress Note ---
Assessment and Plan Cultures: Blood culture 07/05/2019 no growth to date A/P: 24-year-old male no past medical history admitted with pneumonia. #COVID-19 rule out: Patient with bilateral pneumonia, no sick contacts, no recent travel. He does have an elevated white count which is not common in COVID-19, however bilateral pneumonia is more common. COVID-19 form already filled out, which I greatly appreciate. Continue contact and droplet precautions until test results. #Pneumonia: Possibly bacterial given high white count. Would obtain procalcitonin in the morning labs. Continue empiric ceftriaxone azithromycin as white count has responded. Recs: -Continue empiric ceftriaxone and azithromycin. If discharging prior to completing course, would recommend discharging with levofloxacin 750 mg every 24 hours to complete 5 days from initiation of ceftriaxone. -Continue droplet and contact precautions -Follow-up with [facility] for COVID-19 testing results - Patient may be discharged when medically stable if testing swabs have been obtained. Upon discharge patient should self-quarantine at home until COVID testing returns. If negative, self-quarantine may end. If positive patient should self-quarantine for 14 days from symptom beginning. Public health and infection prevention will follow up with patients to notify them of their test results. Patients should return to hospital regardless if they have worsening fevers or respiratory status. Thank you for the consult, will continue to follow Milka Hanson MD [facility] M: [phone] O: [phone] F: [phone] Subjective Date of service: 07/09/19 Interval history: Afebrile, and with a white count that has returned to normal from being elevated yesterday. He still feels a little short of breath, but is improved from previous. Objective - Exam Narrative Exam: Physical Exam: Constitutional: Alert, cooperative. No acute distress Head, Ears, Nose: Normocephalic, atraumatic. External ears, nose normal Eyes: Conjunctivae/corneas clear. No icterus. No ptosis. Neck: Supple, no meningeal signs Oral: dentition fair, no thrush Cardiovascular: S1, S2 normal. Respiratory: Mild wheeze GI: Soft, non-tender; bowel sounds normal. No peritoneal signs. Musculoskeletal: No pedal edema, no cyanosis. Skin: No rash or abscess Hem/Lymphatic: No palpable cervical or supraclavicular nodes. No lymphangitis Psych: Mood ok. Affect normal Neurological: Awake, alert, oriented. No gross abnormality - Constitutional Vitals: Vital Signs Temp Pulse Resp BP Pulse Ox 98.2 F 88 18 104/68 96 07/08/19 23:27 07/09/19 08:33 07/09/19 08:33 07/08/19 23:27 07/09/19 08:33 Temperature -Last 24 Hours Temperature 98.2 F - Labs CBC & Chem 7: 07/09/19 06:15 07/07/19 11:10 Labs: Abnormal lab results 07/09/19 Range/Units 06:15 RBC 5.95 H (3.65-5.03) M/mm3 MCV 67 L (84-94) fl MCH 22 L (28-32) pg RDW 17.3 H (13.2-15.2) % Plt Count 460 H (140-440) K/mm3 Lymph % (Auto) 11.8 L (13.4-35.0) % Lymph # 1.0 L (1.2-5.4) K/mm3 Seg Neutrophils % 77.9 H (40.0-70.0) %
== END 2019-07-09 15:00 | disposition home or self-care (01) | DRG 871 ==
LOC: ED 20:54 → 3A 23:57
PROVIDERS: ADMIT Internal Medicine; ATTEND Internal Medicine
DX: A41.9 Sepsis, unspecified organism (principal); J18.9 Pneumonia, unspecified organism; J45.901 Unspecified asthma with (acute) exacerbation; E87.1 Hypo-osmolality and hyponatremia; Z20.828 Contact with and (suspected) exposure to other viral communicable diseases; Z79.51 Long term (current) use of inhaled steroids; Z79.899 Other long term (current) drug therapy; Z82.49 Family history of ischemic heart disease and other diseases of the circulatory system
CPT/HCPCS: 36415; 71046; 71275; 80048; 80053; 82140; 84145; 85007; 85025; 87040; 87400; 94640; 94644; 94760; 96365; 96367; 96375; G0378; J0456; J0696; J1100; J1650; J2543; J3370; J7030; J7040; J7050; Q9967

== ENCOUNTER 2020-02-03 16:01 | Emergency (ER) | payer SELFPAY ==
[2020-02-03] MEDS ORDERED: dexAMETHasone 20 MG/5 ML VIAL IM ONE (22:05)
[2020-02-03] MEDS ORDERED: IPRATROPIUM/ALBUTEROL SULFATE 3 ML AMPUL.NEB IH ONE (22:05)
--- NOTE | 2020-02-03 22:33 | XRay Report ---
CHEST 1 VIEW 02/03/2020 9:27 PM INDICATION / CLINICAL INFORMATION: dyspnea, asthma. COMPARISON: 07/05/2019. FINDINGS: SUPPORT DEVICES: None. HEART / MEDIASTINUM: No significant abnormality. LUNGS / PLEURA: No significant pulmonary or pleural abnormality. No pneumothorax. ADDITIONAL FINDINGS: No significant additional findings. IMPRESSION: No acute cardiopulmonary abnormality. Signer Name: Rigo Quijano MD Signed: 02/03/2020 10:28 PM Workstation Name: [id number]
--- NOTE | 2020-02-03 23:21 | Emergency Department Report ---
ED Shortness of Breath HPI - General Chief Complaint: Dyspnea/Respdistress Stated Complaint: SOB/HEADACHE Source: patient Mode of arrival: Ambulatory Limitations: No Limitations - History of Present Illness Initial Comments: Patient is a 24-year-old -[place] male with a history of asthma who presents to the ED with complaint of acute onset persistent shortness of breath, persistent dry cough with wheezing, nasal and sinus congestion for the last 6 hours. Patient states that the symptoms are worsened in the last 2 hours. Patient states that although he has albuterol inhaler at home he rarely uses this medicine whenever he has asthma exacerbations. Patient denies dizziness, syncope, chest pain, fever, chills, sore throat, nausea, vomiting, diarrhea, abdominal pain, syncope, neck pain, change in vision or back pain. MD Complaint: shortness of breath, cough, "asthma attack" -: Sudden, hour(s) (6) Severity: moderate Pain Scale: 4 Quality: dull, aching Consistency: constant Improves With: bronchodilators Worsens With: exertion, coughing, inspiration Known History Of: asthma Context: recent URI, medication noncompliance, allergen exposure, smoke/fume exposure Associated Symptoms: denies other symptoms, chest pain, cough Treatments Prior to Arrival: none - Related Data Home Oxygen Therapy: No Previous Rx's Medication Instructions Recorded Last Taken Type Fluticasone/Salmeterol [Advair 1 puff IH BID #1 disk.w.dev 07/09/19 Unknown Rx Diskus 250-50 mcg] levoFLOXacin [Levaquin] 750 mg PO QDAY #5 tablet 07/09/19 Unknown Rx ALBUTEROL NEB's [Proventil 0.083% 3 ml IH TID PRN #75 ml 02/03/20 Unknown Rx NEBS] Albuterol Mdi (or & Nicu Only) 2 puff IH QID PRN #1 inh 02/03/20 Unknown Rx [ProAir HFA Inhaler] Benzonatate [Tessalon Perles] 100 mg PO Q8HR #30 capsule 02/03/20 Unknown Rx Prednisone [predniSONE 10 mg 10 mg PO .TAPER #21 tab.ds.pk 02/03/20 Unknown Rx (6-Day Pack, 21 Tabs)] Allergies Allergy/AdvReac Type Severity Reaction Status Date / Time No Known Allergies Allergy Verified 05/30/19 12:05 ED Review of Systems ROS: Stated complaint: SOB/HEADACHE Other details as noted in HPI Constitutional: denies: chills, fever Eyes: denies: eye pain, eye discharge, vision change ENT: congestion. denies: ear pain, throat pain Respiratory: cough, shortness of breath, wheezing Cardiovascular: denies: chest pain, palpitations Endocrine: no symptoms reported Gastrointestinal: denies: abdominal pain, nausea, diarrhea Genitourinary: denies: urgency, dysuria Musculoskeletal: denies: back pain, joint swelling, arthralgia Skin: denies: rash, lesions Neurological: denies: headache, weakness, paresthesias Psychiatric: denies: anxiety, depression Hematological/Lymphatic: denies: easy bleeding, easy bruising ED Past Medical Hx - Past Medical History Hx Hypertension: No Hx CVA: No Hx Heart Attack/AMI: No Hx Congestive Heart Failure: No Hx Diabetes: No Hx Deep Vein Thrombosis: No Hx Pulmonary Embolism: No Hx GERD: No Hx Liver Disease: No Hx Renal Disease: No Hx Sickle Cell Disease: No Hx Arthritis: No Hx Headaches / Migraines: No Hx Seizures: No Hx Kidney Stones: No Hx Psychiatric Treatment: No Hx Asthma: Yes Hx COPD: No Hx Tuberculosis: No Hx Dementia: No Hx HIV: No - Surgical History Hx Coronary Stent: No Hx Open Heart Surgery: No Hx Pacemaker: No Hx Internal Defibrillator: No Hx Cholecystectomy: No Hx Appendectomy: No Hx Breast Surgery: No Additional Surgical History: Testicle Torsion, twisted intestine - Social History Smoking Status: Never Smoker Substance Use Type: None - Medications Home Medications: Home Medications Medication Instructions Recorded Confirmed Last Taken Type Fluticasone/Salmeterol [Advair 1 puff IH BID #1 disk.w.dev 07/09/19 Unknown Rx Diskus 250-50 mcg] levoFLOXacin [Levaquin] 750 mg PO QDAY #5 tablet 07/09/19 Unknown Rx ALBUTEROL NEB's [Proventil 0.083% 3 ml IH TID PRN #75 ml 02/03/20 Unknown Rx NEBS] Albuterol Mdi (or & Nicu Only) 2 puff IH QID PRN #1 inh 02/03/20 Unknown Rx [ProAir HFA Inhaler] Benzonatate [Tessalon Perles] 100 mg PO Q8HR #30 capsule 02/03/20 Unknown Rx Prednisone [predniSONE 10 mg 10 mg PO .TAPER #21 tab.ds.pk 02/03/20 Unknown Rx (6-Day Pack, 21 Tabs)] ED Physical Exam - General Limitations: No Limitations General appearance: alert, in no apparent distress - Head Head exam: Present: atraumatic, normocephalic, normal inspection - Eye Eye exam: Present: normal appearance, PERRL, EOMI Pupils: Present: normal accommodation - ENT ENT exam: Present: normal orophraynx, mucous membranes moist, TM's normal bilaterally, normal external ear exam, other (Grossly congested nasal passages) - Neck Neck exam: Present: normal inspection, full ROM. Absent: tenderness, lymphadenopathy - Respiratory Respiratory exam: Present: wheezes (Moderately diffuse coarse wheezes throughout). Absent: respiratory distress, rales, rhonchi, chest wall tenderness, accessory muscle use, prolonged expiratory - Cardiovascular Cardiovascular Exam: Present: regular rate, normal rhythm, normal heart sounds. Absent: systolic murmur, diastolic murmur, rubs, gallop - GI/Abdominal GI/Abdominal exam: Present: soft, normal bowel sounds. Absent: tenderness, guarding, hyperactive bowel sounds, hypoactive bowel sounds - Extremities Exam Extremities exam: Present: normal inspection, full ROM, normal capillary refill - Back Exam Back exam: Present: normal inspection, full ROM. Absent: tenderness, CVA tenderness (R), CVA tenderness (L), muscle spasm, paraspinal tenderness, vertebral tenderness - Neurological Exam Neurological exam: Present: alert, oriented X3, CN II-XII intact, normal gait, reflexes normal - Psychiatric Psychiatric exam: Present: normal affect, normal mood - Skin Skin exam: Present: warm, dry, intact, normal color. Absent: rash ED Course Vital Signs 02/03/20 02/03/20 02/04/20 16:51 22:20 00:18 Pulse Rate 80 76 Pulse Rate [ 82 Bilateral Throughout] Respiratory 20 16 Rate Respiratory 18 Rate [Bilateral Throughout] Blood Pressure 133/82 122/68 [Right] O2 Sat by Pulse 97 97 Oximetry ED Medical Decision Making - Radiology Data Radiology results: report reviewed, image reviewed Findings [facility] [address] [place] [address] XRay Report Signed Patient: MAGALI,DONFAYE Feldman#: [id number] : 1995 Acct:[id number] Age/Sex: 24 / M ADM Date: 02/03/20 Loc: ED Attending Dr: Ordering Physician: SAWYER MAK Date of Service: 02/03/20 Procedure(s): XR chest 1V ap Accession Number(s): [id number] cc: SAWYER MAK Fluoro Time In Minutes: CHEST 1 VIEW 02/03/2020 9:27 PM INDICATION / CLINICAL INFORMATION: dyspnea, asthma. COMPARISON: 07/05/2019. FINDINGS: SUPPORT DEVICES: None. HEART / MEDIASTINUM: No significant abnormality. LUNGS / PLEURA: No significant pulmonary or pleural abnormality. No pneumothorax. ADDITIONAL FINDINGS: No significant additional findings. IMPRESSION: No acute cardiopulmonary abnormality. Signer Name: Favian Quijano MD Signed: 02/03/2020 10:28 PM Workstation Name: [id number] Transcribed By: SS Dictated By: FAVIAN QUIJANO Electronically Authenticated By: FAVIAN QUIJANO Signed Date/Time: 02/03/202227 DD/ 26 TD/TT: - Medical Decision Making This is a 24-year-old -[place] male with a history of asthma who presents to the ED with complaint of acute onset persistent shortness of breath, persistent dry cough with wheezing, nasal and sinus congestion for the last 6 hours. Patient states that the symptoms are worsened in the last 2 hours. Patient states that although he has albuterol inhaler at home he rarely uses this medicine whenever he has asthma exacerbations. In the ED, patient is alert and oriented x3 and is not in distress. Patient was treated in the ED with DuoNeb and also given oral steroids. Chest x-ray showed no acute cardiopulmonary abnormalities or pneumonitis. On reevaluation, patient wheezing and shortness of breath resolved with medications. Patient felt better and will discharge home on more prescriptions for albuterol nebulizers and inhalers and steroids. Patient was advised return to the ED immediately if symptoms get worse, otherwise follow-up with his primary care physician in 3 to 5 days for reevaluation. - Differential Diagnosis Asthma; bronchitis; pneumonia; reactive airway disease; URI Critical care attestation.: If time is entered above; I have spent that time in minutes in the direct care of this critically ill patient, excluding procedure time. ED Disposition Clinical Impression: Acute bronchitis with asthma with acute exacerbation, Shortness of breath Asthma exacerbation Qualifiers: Asthma severity: moderate Asthma persistence: persistent Qualified Code(s): J45.41 - Moderate persistent asthma with (acute) exacerbation Disposition: TO HOME OR SELFCARE Is pt being admited?: No Does the pt Need Aspirin: No Condition: Stable Instructions: Asthma (ED), Acute Bronchitis (ED), Dyspnea (ED) Additional Instructions: Chest x-ray shows no acute cardiopulmonary abnormalities or pneumonitis. Therefore take medications with food, drink plenty of fluids and follow-up with your primary care physician in 3 to 5 days for reevaluation. Return to the ED immediately if symptoms get worse. Prescriptions: Prednisone [predniSONE 10 mg (6-Day Pack, 21 Tabs)] 10 mg PO .TAPER #21 tab.ds.pk Albuterol Mdi (or & Nicu Only) [ProAir HFA Inhaler] 2 puff IH QID PRN #1 inh PRN Reason: Shortness Of Breath ALBUTEROL NEB's [Proventil 0.083% NEBS] 3 ml IH TID PRN #75 ml PRN Reason: Wheezing Benzonatate [Tessalon Perles] 100 mg PO Q8HR #30 capsule Referrals: [facility] [Provider Group] - 3-5 Days Time of Disposition: 23:21 Print Language: OMANI
[2020-02-04 00:19] VITALS: BP 122/68
== END 2020-02-04 00:18 | disposition home or self-care (01) ==
LOC: ED 16:01
DX: J45.901 Unspecified asthma with (acute) exacerbation (principal); R06.02 Shortness of breath; Z79.899 Other long term (current) drug therapy; Z98.890 Other specified postprocedural states
CPT/HCPCS: 71045; 94640; 96372; 99283; J1100; 94644

== ENCOUNTER 2020-05-28 09:28 | Emergency (ER) | payer SELFPAY ==
[2020-05-28] MEDS ORDERED: IPRATROPIUM/ALBUTEROL SULFATE 3 ML AMPUL.NEB IH ONE (09:51)
[2020-05-28] MEDS ORDERED: predniSONE 20 MG TAB PO ONE (09:51)
--- NOTE | 2020-05-28 09:55 | Emergency Department Report ---
ED Asthma HPI - General Chief Complaint: Adult Asthma Stated Complaint: ASTHMA/ LOW BACK PAIN Time Seen by Provider: 05/28/20 09:50 Source: patient Mode of arrival: Ambulatory Limitations: No Limitations - History of Present Illness Initial Comments: This is a pleasant 25-year-old male with a past medical history of asthma who presents the emergency department with a chief complaint of wheezing. Patient reports he ran out of his medications last night which he usually uses inhaled albuterol nebulized albuterol as needed. He denies any fever, cough, nausea, vomit, diarrhea, chest pain, shortness of breath or any other associated symptoms. He does also report some left-sided lower back pain. 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 He denies any specific injuries. He denies any saddle anesthesia, urinary or bowel incontinence, urinary retention, or any other associated symptoms. - Related Data Previous Rx's Medication Instructions Recorded Last Taken Type Fluticasone/Salmeterol [Advair 1 puff IH BID #1 disk.w.dev 07/09/19 Unknown Rx Diskus 250-50 mcg] levoFLOXacin [Levaquin] 750 mg PO QDAY #5 tablet 07/09/19 Unknown Rx ALBUTEROL NEB's [Proventil 0.083% 3 ml IH TID PRN #75 ml 02/03/20 Unknown Rx NEBS] Albuterol Mdi (or & Nicu Only) 2 puff IH QID PRN #1 inh 02/03/20 Unknown Rx [ProAir HFA Inhaler] Benzonatate [Tessalon Perles] 100 mg PO Q8HR #30 capsule 02/03/20 Unknown Rx Prednisone [predniSONE 10 mg 10 mg PO .TAPER #21 tab.ds.pk 02/03/20 Unknown Rx (6-Day Pack, 21 Tabs)] Albuterol Sulfate [Proair 90 mcg IH Q4HR #1 aer.pw.bas 05/28/20 Unknown Rx Digihaler] Ipratropium/Albuterol Sulfate 1 ampul IH Q4HR #90 ampul.neb 05/28/20 Unknown Rx [DUONEB *Not for PRN Use*] predniSONE [Deltasone] 50 mg PO QDAY #5 tab 05/28/20 Unknown Rx Allergies Allergy/AdvReac Type Severity Reaction Status Date / Time No Known Allergies Allergy Verified 05/30/19 12:05 ED Review of Systems ROS: Stated complaint: ASTHMA/ LOW BACK PAIN Other details as noted in HPI Comment: All other systems reviewed and negative Constitutional: denies: chills, fever Eyes: denies: eye pain, eye discharge, vision change ENT: denies: ear pain, throat pain Respiratory: see HPI, wheezing. denies: cough, shortness of breath Cardiovascular: denies: chest pain, palpitations Endocrine: no symptoms reported Gastrointestinal: denies: abdominal pain, nausea, diarrhea Genitourinary: denies: urgency, dysuria Musculoskeletal: denies: back pain, joint swelling, arthralgia Skin: denies: rash, lesions Neurological: denies: headache, weakness, paresthesias Psychiatric: denies: anxiety, depression Hematological/Lymphatic: denies: easy bleeding, easy bruising ED Past Medical Hx - Past Medical History Previous Medical History?: Yes Hx Hypertension: No Hx CVA: No Hx Heart Attack/AMI: No Hx Congestive Heart Failure: No Hx Diabetes: No Hx Deep Vein Thrombosis: No Hx Pulmonary Embolism: No Hx GERD: No Hx Liver Disease: No Hx Renal Disease: No Hx Sickle Cell Disease: No Hx Arthritis: No Hx Headaches / Migraines: No Hx Seizures: No Hx Kidney Stones: No Hx Psychiatric Treatment: No Hx Asthma: Yes Hx COPD: No Hx Tuberculosis: No Hx Dementia: No Hx HIV: No - Surgical History Past Surgical History?: Yes Hx Coronary Stent: No Hx Open Heart Surgery: No Hx Pacemaker: No Hx Internal Defibrillator: No Hx Cholecystectomy: No Hx Appendectomy: No Hx Breast Surgery: No Additional Surgical History: Testicle Torsion, twisted intestine - Social History Smoking Status: Never Smoker Substance Use Type: None - Medications Home Medications: Home Medications Medication Instructions Recorded Confirmed Last Taken Type Fluticasone/Salmeterol [Advair 1 puff IH BID #1 disk.w.dev 07/09/19 Unknown Rx Diskus 250-50 mcg] levoFLOXacin [Levaquin] 750 mg PO QDAY #5 tablet 07/09/19 Unknown Rx ALBUTEROL NEB's [Proventil 0.083% 3 ml IH TID PRN #75 ml 02/03/20 Unknown Rx NEBS] Albuterol Mdi (or & Nicu Only) 2 puff IH QID PRN #1 inh 02/03/20 Unknown Rx [ProAir HFA Inhaler] Benzonatate [Tessalon Perles] 100 mg PO Q8HR #30 capsule 02/03/20 Unknown Rx Prednisone [predniSONE 10 mg 10 mg PO .TAPER #21 tab.ds.pk 02/03/20 Unknown Rx (6-Day Pack, 21 Tabs)] Albuterol Sulfate [Proair 90 mcg IH Q4HR #1 aer.pw.bas 05/28/20 Unknown Rx Digihaler] Ipratropium/Albuterol Sulfate 1 ampul IH Q4HR #90 ampul.neb 05/28/20 Unknown Rx [DUONEB *Not for PRN Use*] predniSONE [Deltasone] 50 mg PO QDAY #5 tab 05/28/20 Unknown Rx ED Physical Exam - General Limitations: No Limitations General appearance: alert, in no apparent distress - Head Head exam: Present: atraumatic, normocephalic - Eye Eye exam: Present: normal appearance, PERRL, EOMI Pupils: Present: normal accommodation - ENT ENT exam: Present: normal exam, normal orophraynx, mucous membranes moist - Neck Neck exam: Present: normal inspection, full ROM. Absent: tenderness, meningismus - Respiratory Respiratory exam: Present: wheezes (Inspiratory and expiratory wheezes bilaterally, no increased work of breathing), other. Absent: respiratory distress - Cardiovascular Cardiovascular Exam: Present: regular rate, normal rhythm. Absent: systolic murmur, diastolic murmur, rubs, gallop - GI/Abdominal GI/Abdominal exam: Present: soft, normal bowel sounds. Absent: distended, tenderness, guarding, rebound, rigid - Rectal Rectal exam: Present: deferred - Extremities Exam Extremities exam: Present: normal inspection, full ROM, normal capillary refill. Absent: tenderness - Back Exam Back exam: Present: normal inspection, full ROM, tenderness (Mild left lower back tenderness, no midline tenderness to the lumbar spine. Negative straight leg raise.). Absent: CVA tenderness (R), CVA tenderness (L) - Neurological Exam Neurological exam: Present: alert, oriented X3, normal gait - Psychiatric Psychiatric exam: Present: normal affect, normal mood - Skin Skin exam: Present: warm, dry, intact, normal color. Absent: rash ED Course Vital Signs 05/28/20 05/28/20 05/28/20 09:31 10:08 10:12 Temperature 98.3 F 98 F Pulse Rate 83 76 Pulse Rate [ Anterior Bilateral Throughout] Respiratory 20 20 20 Rate Respiratory Rate [Anterior Bilateral Throughout] Blood Pressure 135/70 Blood Pressure 124/83 [Left] O2 Sat by Pulse 97 97 97 Oximetry 05/28/20 10:21 Temperature Pulse Rate Pulse Rate [ 79 Anterior Bilateral Throughout] Respiratory Rate Respiratory 20 Rate [Anterior Bilateral Throughout] Blood Pressure Blood Pressure [Left] O2 Sat by Pulse Oximetry - Reevaluation(s) Reevaluation #1: 05/28/20 09:55 Patient nontoxic in no acute distress. He does have wheezing on exam but no increased work of breathing, no retractions, speaking in complete sentences, no oxygen desaturations. He denies any Covid exposure. He denies any cough or fever. I did order a breathing treatment and steroid in the emergency department and will observe for improved symptoms if he feels better and his lungs sound clear and oxygen saturation remains normal I will discharge him home with a refill of his asthma medications. As far as his back pain he did have some mild tenderness to the left lower back. Negative straight leg raise. He is ambulatory with steady gait. No midline tenderness to the spine. He had no red flags for back pain with no saddle anesthesia, urinary or bowel incontinence, urinary retention. And I think outpatient follow-up his primary care doctor is appropriate for this. Reevaluation #2: 05/28/20 12:26 Patient is feeling much better after nebulizer and steroid. He still has some mild expiratory wheezes but has no increased work of breathing with sleeping at the bedside. Will discharge patient with a refill of his medications and outpatient follow-up with his primary care doctor. Return to the ER with any changing worsening symptoms. Patient verbalized understanding of the diagnosis, treatment plan and follow-up instructions and all his questions were answered. ED Medical Decision Making - Medical Decision Making Patient presents with expiratory wheezing with no increased work of breathing. He was given 2 nebs and steroids and felt much better. His breathing improved and his lung sounds improved. He had normal vital signs and felt comfortable going home. Will discharge him in stable condition with a refill of his medications and steroids and follow-up with primary care doctor. He verbalized understanding the diagnosis, treatment plan and follow-up instructions all his questions were answered. - Differential Diagnosis asthma exacerbation, URI, covid-19 Critical care attestation.: If time is entered above; I have spent that time in minutes in the direct care of this critically ill patient, excluding procedure time. ED Disposition Clinical Impression: Acute asthma exacerbation Qualifiers: Asthma severity: mild Asthma persistence: intermittent Qualified Code(s): J45.21 - Mild intermittent asthma with (acute) exacerbation Disposition: TO HOME OR SELFCARE Is pt being admited?: No Condition: Stable Instructions: Asthma, Adult Prescriptions: predniSONE [Deltasone] 50 mg PO QDAY #5 tab Ipratropium/Albuterol Sulfate [DUONEB *Not for PRN Use*] 1 ampul IH Q4HR #90 ampul.neb Albuterol Sulfate [Proair Digihaler] 90 mcg IH Q4HR #1 aer.pw.bas Referrals: PRIMARY CAREMD [Primary Care Provider] - 3-5 Days JESSICA GEORGE MD [Staff Physician] - 3-5 Days Time of Disposition: 12:28
[2020-05-28 10:11] VITALS: BP 124/83
[2020-05-28] MEDS ORDERED: IPRATROPIUM/ALBUTEROL SULFATE 3 ML AMPUL.NEB IH SCH (12:00)
== END 2020-05-28 12:50 | disposition home or self-care (01) ==
LOC: ED 09:28
DX: J45.901 Unspecified asthma with (acute) exacerbation (principal); Z79.899 Other long term (current) drug therapy
CPT/HCPCS: 94640; 99283; J7512; 94644

== ENCOUNTER 2020-08-10 20:55 | Emergency (ER) | payer SELFPAY | END 2020-08-10 22:00 | disposition left against medical advice (07) | LOC: ED 20:55 | DX: J45.909 Unspecified asthma, uncomplicated (principal); Z53.21 Procedure and treatment not carried out due to patient leaving prior to being seen by health care provider ==

== ENCOUNTER 2020-12-29 02:44 | Emergency (ER) | payer BC ==
[2020-12-29] MEDS ORDERED: IPRATROPIUM 0.02% NEBU 2.5 ML IH ONE (02:57)
[2020-12-29] MEDS ORDERED: ALBUTEROL 2.5 MG/3 ML NEBU IH ONE (02:57)
[2020-12-29] MEDS ORDERED: methylPREDNISolone Sod Succinate 125 MG/2 ML INJ IM ONE (02:57)
--- NOTE | 2020-12-29 03:44 | XRay Report ---
CHEST 1 VIEW INDICATION: DYSPNEA, ASTHMA. COMPARISON: 02/03/2020 FINDINGS: Support devices: None. Heart: Normal. Lungs/Pleura: No acute pulmonary or pleural findings. IMPRESSION: 1. No acute findings. Signer Name: Alexandru Trevino MD Signed: 12/29/2020 3:40 AM Workstation Name: [id number]
--- NOTE | 2020-12-29 05:14 | Emergency Department Report ---
ED Shortness of Breath HPI - General Chief Complaint: Adult Asthma Stated Complaint: CHEST PAIN,HEADACHE,WHEEZING Source: patient Mode of arrival: Ambulatory Limitations: No Limitations - History of Present Illness Initial Comments: Patient is a 25-year-old -[place] male with a history of asthma who presents to the ED with complaint of acute onset persistent dry cough, chest tightness and shortness of breath for the last 12 hours, worse in the last 3 hours. Patient states that he ran out of his albuterol inhaler and nebulizers at home and therefore in the last 3 hours, his shortness of breath and chest tightness have worsened. Patient states that his symptoms are typical of his chronic asthma with exacerbations especially when he runs out of his medications. Patient denies dizziness, syncope, chest pain, nausea and vomiting, fever, chills, headache, sore throat, nasal and sinus congestion, abdominal pain, palpitations or change in vision. MD Complaint: shortness of breath, cough, "asthma attack" -: Sudden, hour(s) (12) Severity: moderate Pain Scale: 6 Quality: dull, other (Chest tightness) Consistency: constant Improves With: bronchodilators Worsens With: nothing Known History Of: asthma Context: allergen exposure Associated Symptoms: denies other symptoms, cough Treatments Prior to Arrival: none, other (Rein out of his bronchodilator treatments) - Related Data Home Oxygen Therapy: No Previous Rx's Medication Instructions Recorded Last Taken Type Fluticasone/Salmeterol [Advair 1 puff IH BID #1 disk.w.dev 07/09/19 Unknown Rx Diskus 250-50 mcg] levoFLOXacin [Levaquin] 750 mg PO QDAY #5 tablet 07/09/19 Unknown Rx Albuterol Sulfate [Proair 90 mcg IH Q4HR #1 aer.pw.bas 05/28/20 Unknown Rx Digihaler] predniSONE [Deltasone] 50 mg PO QDAY #5 tab 05/28/20 Unknown Rx ALBUTEROL NEB's [Proventil 0.083% 3 ml IH TID PRN #75 ml 12/29/20 Unknown Rx NEBS] Albuterol Mdi (or & Nicu Only) 2 puff IH QID PRN #1 inh 12/29/20 Unknown Rx [ProAir HFA Inhaler] Benzonatate [Tessalon Perles] 100 mg PO Q8HR #30 capsule 12/29/20 Unknown Rx Cetirizine HCl [Zyrtec 10mg tab] 10 mg PO DAILY #30 tablet 12/29/20 Unknown Rx Ipratropium/Albuterol Sulfate 1 ampul IH Q4HR #90 ampul.neb 12/29/20 Unknown Rx [DUONEB *Not for PRN Use*] Prednisone [predniSONE 10 mg 10 mg PO .TAPER #21 tab.ds.pk 12/29/20 Unknown Rx (6-Day Pack, 21 Tabs)] Allergies Allergy/AdvReac Type Severity Reaction Status Date / Time No Known Allergies Allergy Verified 12/29/20 02:51 ED Review of Systems ROS: Stated complaint: CHEST PAIN,HEADACHE,WHEEZING Other details as noted in HPI Constitutional: denies: chills, fever Eyes: denies: eye pain, eye discharge, vision change ENT: denies: ear pain, throat pain Respiratory: cough, shortness of breath, wheezing Cardiovascular: chest pain (Chest tightness). denies: palpitations Endocrine: no symptoms reported Gastrointestinal: denies: abdominal pain, nausea, diarrhea Genitourinary: denies: urgency, dysuria Musculoskeletal: denies: back pain, joint swelling, arthralgia Skin: denies: rash, lesions Neurological: denies: headache, weakness, paresthesias Psychiatric: denies: anxiety, depression Hematological/Lymphatic: denies: easy bleeding, easy bruising ED Past Medical Hx - Past Medical History Hx Hypertension: No Hx CVA: No Hx Heart Attack/AMI: No Hx Congestive Heart Failure: No Hx Diabetes: No Hx Deep Vein Thrombosis: No Hx Pulmonary Embolism: No Hx GERD: No Hx Liver Disease: No Hx Renal Disease: No Hx Sickle Cell Disease: No Hx Arthritis: No Hx Headaches / Migraines: No Hx Seizures: No Hx Kidney Stones: No Hx Psychiatric Treatment: No Hx Asthma: Yes Hx COPD: No Hx Tuberculosis: No Hx Dementia: No Hx HIV: No - Surgical History Hx Coronary Stent: No Hx Open Heart Surgery: No Hx Pacemaker: No Hx Internal Defibrillator: No Hx Cholecystectomy: No Hx Appendectomy: No Hx Breast Surgery: No Additional Surgical History: Testicle Torsion, twisted intestine - Social History Smoking Status: Never Smoker Substance Use Type: None - Medications Home Medications: Home Medications Medication Instructions Recorded Confirmed Last Taken Type Fluticasone/Salmeterol [Advair 1 puff IH BID #1 disk.w.dev 07/09/19 Unknown Rx Diskus 250-50 mcg] levoFLOXacin [Levaquin] 750 mg PO QDAY #5 tablet 07/09/19 Unknown Rx Albuterol Sulfate [Proair 90 mcg IH Q4HR #1 aer.pw.bas 05/28/20 Unknown Rx Digihaler] predniSONE [Deltasone] 50 mg PO QDAY #5 tab 05/28/20 Unknown Rx ALBUTEROL NEB's [Proventil 0.083% 3 ml IH TID PRN #75 ml 12/29/20 Unknown Rx NEBS] Albuterol Mdi (or & Nicu Only) 2 puff IH QID PRN #1 inh 12/29/20 Unknown Rx [ProAir HFA Inhaler] Benzonatate [Tessalon Perles] 100 mg PO Q8HR #30 capsule 12/29/20 Unknown Rx Cetirizine HCl [Zyrtec 10mg tab] 10 mg PO DAILY #30 tablet 12/29/20 Unknown Rx Ipratropium/Albuterol Sulfate 1 ampul IH Q4HR #90 ampul.neb 12/29/20 Unknown Rx [DUONEB *Not for PRN Use*] Prednisone [predniSONE 10 mg 10 mg PO .TAPER #21 tab.ds.pk 12/29/20 Unknown Rx (6-Day Pack, 21 Tabs)] ED Physical Exam - General Limitations: No Limitations General appearance: alert, in no apparent distress - Head Head exam: Present: atraumatic, normocephalic, normal inspection - Eye Eye exam: Present: normal appearance, PERRL, EOMI Pupils: Present: normal accommodation - ENT ENT exam: Present: normal exam, normal orophraynx, mucous membranes moist, TM's normal bilaterally, normal external ear exam - Neck Neck exam: Present: normal inspection, full ROM. Absent: tenderness - Respiratory Respiratory exam: Present: respiratory distress, wheezes (Diffuse coarse wheezes throughout with mild respiratory distress, and use of chest accessory muscles), accessory muscle use. Absent: rales, rhonchi, chest wall tenderness, decreased breath sounds, prolonged expiratory - Cardiovascular Cardiovascular Exam: Present: regular rate, normal rhythm, normal heart sounds. Absent: systolic murmur, diastolic murmur, rubs, gallop - GI/Abdominal GI/Abdominal exam: Present: soft, normal bowel sounds. Absent: tenderness, guarding, rebound, hyperactive bowel sounds, hypoactive bowel sounds, organomegaly, mass - Extremities Exam Extremities exam: Present: normal inspection, full ROM, normal capillary refill - Back Exam Back exam: Present: normal inspection, full ROM. Absent: tenderness, CVA tenderness (R), CVA tenderness (L), muscle spasm, paraspinal tenderness, vertebral tenderness - Neurological Exam Neurological exam: Present: alert, oriented X3, CN II-XII intact, normal gait, reflexes normal - Psychiatric Psychiatric exam: Present: normal affect, normal mood, anxious - Skin Skin exam: Present: warm, dry, intact, normal color. Absent: rash ED Course Vital Signs 12/29/20 12/29/20 02:50 03:30 Temperature 97.4 F L Pulse Rate 80 Pulse Rate [ 82 Bilateral] Respiratory 26 H Rate [Bilateral ] Blood Pressure 119/83 [Right] O2 Sat by Pulse 95 Oximetry ED Medical Decision Making - Radiology Data Radiology results: report reviewed, image reviewed [facility] [address] [place] [address] XRay Report Signed Patient: ENEDELIA DE LOS SANTOS R#: [id number] : 1995 Acct:[id number] Age/Sex: 25 / M ADM Date: 12/29/20 Loc: ED Attending Dr: Ordering Physician: SAWYER MAK Date of Service: 12/29/20 Procedure(s): XR chest 1V ap Accession Number(s): [id number] cc: SAWYER MAK Fluoro Time In Minutes: CHEST 1 VIEW INDICATION: DYSPNEA, ASTHMA. COMPARISON: 02/03/2020 FINDINGS: Support devices: None. Heart: Normal. Lungs/Pleura: No acute pulmonary or pleural findings. IMPRESSION: 1. No acute findings. Signer Name: Alexandru Trevino MD Signed: 12/29/2020 3:40 AM Workstation Name: [id number] Transcribed By: HAYLEY Dictated By: Alexandru Trevino MD Electronically Authenticated By: Alexandru Trevino MD Signed Date/Time: 12/29/20339 DD/ 8 TD/TT: - Medical Decision Making This is a 25-year-old -[place] male with a history of asthma who presents to the ED with complaint of acute onset persistent dry cough, chest tightness and shortness of breath for the last 12 hours, worse in the last 3 hours. Patient states that he ran out of his albuterol inhaler and nebulizers at home and therefore in the last 3 hours, his shortness of breath and chest tightness have worsened. Patient states that his symptoms are typical of his chronic asthma with exacerbations especially when he runs out of his medications. In the ED, patient is alert and oriented x3 and is not in any distress. Patient was treated in the ED with Solu-Medrol 125 mg intramuscular injection, also received ipratropium and albuterol nebulizers. Chest x-ray shows no acute cardiopulmonary abnormalities or pneumonitis. On reevaluation, patient's wheezing resolved, patient felt better, his oxygen saturation is 90% in room air and patient is in no distress. Patient was discharged home on medications and advised to follow-up with his primary care physician in 3 to 5 days for reevaluation or return to the ED immediately if his symptoms get worse. - Differential Diagnosis Asthma; bronchitis; pneumonia; URI; reactive airway disease Critical care attestation.: If time is entered above; I have spent that time in minutes in the direct care of this critically ill patient, excluding procedure time. ED Disposition Clinical Impression: Acute bronchitis with asthma with acute exacerbation, Shortness of breath Disposition: 01 HOME / SELF CARE / HOMELESS Is pt being admited?: No Does the pt Need Aspirin: No Condition: Stable Instructions: Shortness of Breath, Adult, Jxss-io-[id number], Cough, Adult, [id number], Acute Bronchitis, Adult, Uunh-xo-Wykg, Asthma, Adult, Acgc-uc-Inrd, Acute Bronchitis (ED) Additional Instructions: Chest x-ray shows no acute cardiopulmonary abnormalities or pneumonitis. Your symptoms are likely due to acute asthma attack following exposure to some allergen. Therefore take medications as advised, use your inhaler as needed and follow-up with your primary care physician 3 to 5 days for reevaluation. Return to the ED immediately if symptoms get worse. Prescriptions: Ipratropium/Albuterol Sulfate [DUONEB *Not for PRN Use*] 1 ampul IH Q4HR #90 ampul.neb Prednisone [predniSONE 10 mg (6-Day Pack, 21 Tabs)] 10 mg PO .TAPER #21 tab.ds.pk Albuterol Mdi (or & Nicu Only) [ProAir HFA Inhaler] 2 puff IH QID PRN #1 inh PRN Reason: Shortness Of Breath ALBUTEROL NEB's [Proventil 0.083% NEBS] 3 ml IH TID PRN #75 ml PRN Reason: Wheezing Benzonatate [Tessalon Perles] 100 mg PO Q8HR #30 capsule Cetirizine HCl [Zyrtec 10mg tab] 10 mg PO DAILY #30 tablet Referrals: [facility] [Provider Group] - 3-5 Days Forms: Work/School Release Form(ED) Time of Disposition: 05:12 Print Language: SAUDI ARABIAN
[2020-12-29] MEDS ORDERED: methylPREDNISolone Sod Succinate 125 MG/2 ML INJ ONE (05:31)
[2020-12-29 05:39] VITALS: BP 117/75
== END 2020-12-29 05:39 | disposition home or self-care (01) ==
LOC: ED 02:44
DX: J45.901 Unspecified asthma with (acute) exacerbation (principal); J20.9 Acute bronchitis, unspecified
CPT/HCPCS: 71045; 94644; 96372; 99283; J2930

== ENCOUNTER 2021-01-28 17:17 | Emergency (ER) | payer BC ==
[2021-01-28] MEDS ORDERED: predniSONE 20 MG TAB PO ONE (19:42)
[2021-01-28] MEDS ORDERED: ALBUTEROL 2.5 MG/3 ML NEBU IH ONE (19:42)
[2021-01-28] MEDS ORDERED: IPRATROPIUM 0.02% NEBU 2.5 ML IH ONE (19:42)
[2021-01-28] MEDS ORDERED: IBUPROFEN 600 MG TAB PO ONE (19:42)
[2021-01-28] MEDS ORDERED: ACETAMINOPHEN 500 MG TAB PO ONE (19:45)
--- NOTE | 2021-01-28 20:22 | XRay Report ---
CHEST 2 VIEWS INDICATION: COUGH. COMPARISON: 12/29/2020 FINDINGS: SUPPORT DEVICES: None. HEART: Within normal limits. LUNGS/PLEURA: No acute air space or interstitial disease. No pneumothorax. ADDITIONAL FINDINGS: None. IMPRESSION: 1. No acute findings. Signer Name: Tutu Macedo MD Signed: 01/28/2021 8:17 PM Workstation Name: [id number]
[2021-01-28 20:34] VITALS: BP 121/73
--- NOTE | 2021-01-28 21:21 | Emergency Department Report ---
ED Shortness of Breath HPI - General Chief Complaint: Dyspnea/Respdistress Stated Complaint: SOB ASTHMA/RT KNEE SWELLING Source: patient Mode of arrival: Ambulatory Limitations: No Limitations - History of Present Illness Initial Comments: Patient is a 25-year-old -[place] male with a history of asthma presents to the ED with complaint of acute onset persistent shortness of breath, wheezing, dry cough, generalized weakness and chest tightness for the last 1 week, worse in the last 2 days. Patient states that he ran out of his albuterol inhaler about 2 days ago. Patient states that his symptoms have worsened especially last 2 days. Patient also complains of severe right knee pain and swelling due to a small puncture wound he sustained at work when a sharp object punctured his anterior right knee 5 days ago and subsequently developed persistent swelling and worsening pain on anterior right knee. Patient denies dizziness, syncope, fever, chills, fall, chest pain, nausea and vomiting, headache, numbness and tingling or weakness of lower extremities bilaterally, testicular pain or palpitations or chest pain. MD Complaint: shortness of breath, cough, "asthma attack" -: Sudden, days(s) (2) Radiation: other (chest) Severity: moderate Pain Scale: 6 Quality: dull Consistency: constant Improves With: bronchodilators Worsens With: nothing Known History Of: asthma Context: allergen exposure, other (Swollen painful right due to a small puncture wound) Associated Symptoms: other (painful swollen right knee puncture wound) Treatments Prior to Arrival: none - Related Data Home Oxygen Therapy: No Previous Rx's Medication Instructions Recorded Last Taken Type Fluticasone/Salmeterol [Advair 1 puff IH BID #1 disk.w.dev 07/09/19 Unknown Rx Diskus 250-50 mcg] levoFLOXacin [Levaquin] 750 mg PO QDAY #5 tablet 07/09/19 Unknown Rx predniSONE [Deltasone] 50 mg PO QDAY #5 tab 05/28/20 Unknown Rx Albuterol Mdi (or & Nicu Only) 2 puff IH QID PRN #1 inh 12/29/20 Unknown Rx [ProAir HFA Inhaler] Ipratropium/Albuterol Sulfate 1 ampul IH Q4HR #90 ampul.neb 12/29/20 Unknown Rx [DUONEB *Not for PRN Use*] Prednisone [predniSONE 10 mg 10 mg PO .TAPER #21 tab.ds.pk 12/29/20 Unknown Rx (6-Day Pack, 21 Tabs)] ALBUTEROL NEB's [Proventil 0.083% 3 ml IH TID PRN #75 ml 01/28/21 Unknown Rx NEBS] Albuterol Sulfate [Proair 90 mcg IH Q4HR #1 aer.pw.bas 01/28/21 Unknown Rx Digihaler] Benzonatate [Tessalon Perles] 100 mg PO Q8HR #30 capsule 01/28/21 Unknown Rx Cetirizine HCl [Zyrtec 10mg tab] 10 mg PO DAILY #30 tablet 01/28/21 Unknown Rx Doxycycline Hyclate 100 mg PO Q12H #20 capsule 01/28/21 Unknown Rx Ibuprofen [Motrin] 800 mg PO Q8HR PRN #30 tablet 01/28/21 Unknown Rx Allergies Allergy/AdvReac Type Severity Reaction Status Date / Time No Known Allergies Allergy Verified 12/29/20 02:51 ED Review of Systems ROS: Stated complaint: SOB ASTHMA/RT KNEE SWELLING Other details as noted in HPI Constitutional: denies: chills, fever Eyes: denies: eye pain, eye discharge, vision change ENT: denies: ear pain, throat pain Respiratory: cough, shortness of breath, wheezing Cardiovascular: denies: chest pain, palpitations Endocrine: no symptoms reported Gastrointestinal: denies: abdominal pain, nausea, diarrhea Genitourinary: denies: urgency, dysuria Musculoskeletal: joint swelling (Right knee swelling due to a small puncture wound), arthralgia (Right knee pain and swelling due to a small puncture wound). denies: back pain Skin: other (Small puncture wound on right knee). denies: rash, lesions Neurological: denies: headache, weakness, paresthesias Psychiatric: denies: anxiety, depression Hematological/Lymphatic: denies: easy bleeding, easy bruising ED Past Medical Hx - Past Medical History Previous Medical History?: Yes Hx Hypertension: No Hx CVA: No Hx Heart Attack/AMI: No Hx Congestive Heart Failure: No Hx Diabetes: No Hx Deep Vein Thrombosis: No Hx Pulmonary Embolism: No Hx GERD: No Hx Liver Disease: No Hx Renal Disease: No Hx Sickle Cell Disease: No Hx Arthritis: No Hx Headaches / Migraines: No Hx Seizures: No Hx Kidney Stones: No Hx Psychiatric Treatment: No Hx Asthma: Yes Hx COPD: No Hx Tuberculosis: No Hx Dementia: No Hx HIV: No - Surgical History Past Surgical History?: Yes Hx Coronary Stent: No Hx Open Heart Surgery: No Hx Pacemaker: No Hx Internal Defibrillator: No Hx Cholecystectomy: No Hx Appendectomy: No Hx Breast Surgery: No Additional Surgical History: Testicle Torsion, twisted intestine - Social History Smoking Status: Current Some Day Smoker Substance Use Type: None - Medications Home Medications: Home Medications Medication Instructions Recorded Confirmed Last Taken Type Fluticasone/Salmeterol [Advair 1 puff IH BID #1 disk.w.dev 07/09/19 Unknown Rx Diskus 250-50 mcg] levoFLOXacin [Levaquin] 750 mg PO QDAY #5 tablet 07/09/19 Unknown Rx predniSONE [Deltasone] 50 mg PO QDAY #5 tab 05/28/20 Unknown Rx Albuterol Mdi (or & Nicu Only) 2 puff IH QID PRN #1 inh 12/29/20 Unknown Rx [ProAir HFA Inhaler] Ipratropium/Albuterol Sulfate 1 ampul IH Q4HR #90 ampul.neb 12/29/20 Unknown Rx [DUONEB *Not for PRN Use*] Prednisone [predniSONE 10 mg 10 mg PO .TAPER #21 tab.ds.pk 12/29/20 Unknown Rx (6-Day Pack, 21 Tabs)] ALBUTEROL NEB's [Proventil 0.083% 3 ml IH TID PRN #75 ml 01/28/21 Unknown Rx NEBS] Albuterol Sulfate [Proair 90 mcg IH Q4HR #1 aer.pw.bas 01/28/21 Unknown Rx Digihaler] Benzonatate [Tessalon Perles] 100 mg PO Q8HR #30 capsule 01/28/21 Unknown Rx Cetirizine HCl [Zyrtec 10mg tab] 10 mg PO DAILY #30 tablet 01/28/21 Unknown Rx Doxycycline Hyclate 100 mg PO Q12H #20 capsule 01/28/21 Unknown Rx Ibuprofen [Motrin] 800 mg PO Q8HR PRN #30 tablet 01/28/21 Unknown Rx ED Physical Exam - General Limitations: No Limitations General appearance: alert, in no apparent distress - Head Head exam: Present: atraumatic, normocephalic, normal inspection - Eye Eye exam: Present: normal appearance, PERRL, EOMI Pupils: Present: normal accommodation - ENT ENT exam: Present: normal exam, normal orophraynx, mucous membranes moist, TM's normal bilaterally, normal external ear exam - Neck Neck exam: Present: normal inspection, full ROM - Respiratory Respiratory exam: Present: wheezes (Diffuse coarse wheezes throughout). Absent: respiratory distress, rales, rhonchi, chest wall tenderness, accessory muscle use, decreased breath sounds - Cardiovascular Cardiovascular Exam: Present: regular rate, normal rhythm, normal heart sounds. Absent: systolic murmur, diastolic murmur, rubs, gallop - GI/Abdominal GI/Abdominal exam: Present: soft, normal bowel sounds. Absent: tenderness, guarding, rebound, hyperactive bowel sounds, hypoactive bowel sounds, organomegaly - Extremities Exam Extremities exam: Present: normal inspection, full ROM, tenderness (Palpable right knee tenderness and mild swelling due to a small puncture wound), normal capillary refill, joint swelling (Right knee swelling). Absent: pedal edema - Back Exam Back exam: Present: normal inspection, full ROM. Absent: tenderness, CVA tenderness (L), muscle spasm, paraspinal tenderness, vertebral tenderness, rash noted - Neurological Exam Neurological exam: Present: alert, oriented X3, CN II-XII intact, normal gait, reflexes normal - Psychiatric Psychiatric exam: Present: normal affect, normal mood - Skin Skin exam: Present: warm, dry, intact, normal color, other (Small puncture wound on anterior right knee with swelling and localized tenderness). Absent: rash ED Course Vital Signs 01/28/21 01/28/21 01/28/21 17:22 20:23 20:31 Temperature 98.9 F 98.8 F 98.8 F Pulse Rate 85 75 70 Respiratory 18 14 14 Rate Blood Pressure 134/84 121/73 Blood Pressure 122/74 [Right] O2 Sat by Pulse 96 96 96 Oximetry ED Medical Decision Making - Radiology Data Radiology results: report reviewed, image reviewed [facility] [address] [place] [address] XRay Report Signed Patient: ENEDELIA DE LOS SANTOS R#: [id number] : 1995 Acct:[id number] Age/Sex: 25 / M ADM Date: 01/28/21 Loc: ED Attending Dr: Ordering Physician: SAWYER MAK Date of Service: 01/28/21 Procedure(s): XR chest routine 2V Accession Number(s): [id number] cc: SAWYER MAK Fluoro Time In Minutes: CHEST 2 VIEWS INDICATION: COUGH. COMPARISON: 12/29/2020 FINDINGS: SUPPORT DEVICES: None. HEART: Within normal limits. LUNGS/PLEURA: No acute air space or interstitial disease. No pneumothorax. ADDITIONAL FINDINGS: None. IMPRESSION: 1. No acute findings. Signer Name: Tutu Macedo MD Signed: 01/28/2021 8:17 PM Workstation Name: [id number] Transcribed By: JW Dictated By: Tutu Macedo MD Electronically Authenticated By: Tutu Macedo MD Signed Date/Time: 01/28/212016 DD/ 16 TD/TT: - Medical Decision Making This is a 25-year-old -[place] male with a history of asthma presents to the ED with complaint of acute onset persistent shortness of breath, wheezing, dry cough, generalized weakness and chest tightness for the last 1 week, worse in the last 2 days. Patient states that he ran out of his albuterol inhaler about 2 days ago. Patient states that his symptoms have worsened especially last 2 days. Patient also complains of severe right knee pain and swelling due to a small puncture wound he sustained at work when a sharp object punctured his anterior right knee 5 days ago and subsequently developed persistent swelling and worsening pain on anterior right knee. In the ED, patient is alert and oriented x3 and is not in any distress. Patient was treated in the ED with ipratropium and albuterol nebulized and oral steroids as well as pain medications. Chest x-ray showed no acute cardiopulmonary abnormalities or pneumonitis. Patient was discharge home on pain medications and prophylactic antibiotics for the suspected infection on the right knee puncture wound. Patient was advised to return to the ED immediately if symptoms get worse, otherwise follow-up with his primary care physician in 7 to 10 days for reevaluation. - Differential Diagnosis asthma, bronchitis; pneumonia; puncture wound; cellulitis Critical care attestation.: If time is entered above; I have spent that time in minutes in the direct care of this critically ill patient, excluding procedure time. ED Disposition Clinical Impression: Acute bronchitis with asthma with acute exacerbation, Shortness of breath Puncture wound of right knee with complication Qualifiers: Encounter type: initial encounter Qualified Code(s): S81.031A - Puncture wound without foreign body, right knee, initial encounter Disposition: HOME / SELF CARE / HOMELESS Is pt being admited?: No Does the pt Need Aspirin: No Condition: Stable Instructions: Shortness of Breath, Adult, Sckt-oh-Yhuk, Puncture Wound, Jigs-wq-Oigp, Acute Bronchitis, Adult, Uaos-mn-Qqqj, Asthma, Adult, [id number]-[id number] Additional Instructions: Chest x-ray shows no acute cardiopulmonary abnormalities or pneumonitis. Therefore take medication with food, drink plenty of fluids and follow-up with your primary care physician in 7 to 10 days for reevaluation. Return to the ED immediately if symptoms get worse. Prescriptions: Doxycycline Hyclate 100 mg PO Q12H #20 capsule Ibuprofen [Motrin] 800 mg PO Q8HR PRN #30 tablet PRN Reason: Pain , Severe (7-10) Albuterol Sulfate [Proair Digihaler] 90 mcg IH Q4HR #1 aer.pw.bas ALBUTEROL NEB's [Proventil 0.083% NEBS] 3 ml IH TID PRN #75 ml PRN Reason: Wheezing Benzonatate [Tessalon Perles] 100 mg PO Q8HR #30 capsule Cetirizine HCl [Zyrtec 10mg tab] 10 mg PO DAILY #30 tablet Referrals: [facility] [Provider Group] - 3-5 Days Time of Disposition: 21:34 Print Language: KYRGYZ
== END 2021-01-28 22:22 | disposition home or self-care (01) ==
LOC: ED 17:17
DX: J45.901 Unspecified asthma with (acute) exacerbation (principal); R06.02 Shortness of breath; F17.200 Nicotine dependence, unspecified, uncomplicated; S81.031A Puncture wound without foreign body, right knee, initial encounter; X58.XXXA Exposure to other specified factors, initial encounter; Y93.89 Activity, other specified; Y92.89 Other specified places as the place of occurrence of the external cause; Y99.8 Other external cause status
CPT/HCPCS: 71046; 94640; 99283; J7512

== ENCOUNTER 2021-02-21 03:34 | Emergency (ER) | payer BC ==
[2021-02-21] MEDS ORDERED: predniSONE 20 MG TAB PO ONE (03:52)
[2021-02-21] MEDS ORDERED: ALBUTEROL 2.5 MG/3 ML NEBU IH ONE (03:52)
[2021-02-21] MEDS ORDERED: IPRATROPIUM 0.02% NEBU 2.5 ML IH ONE (03:52)
--- NOTE | 2021-02-21 03:55 | Emergency Department Report ---
ED Asthma HPI - General Chief Complaint: Adult Asthma Stated Complaint: ASTHMA ATTACK PUI?: No Time Seen by Provider: 02/21/21 03:43 Source: patient Mode of arrival: Stretcher Limitations: No Limitations - History of Present Illness Initial Comments: CC: "My asthma." HPI: This a 25 yo male with hx of asthma who presents with shortness of breath and wheezing. He has run out of medications. Tends to have an attack at the change of season. He received 2 nebulizer therapy treatments of albuterol per EMS. Has had numerous ED visits at this hospital [place] has also been admitted for asthma. MD Complaint: "asthma attack", shortness of breath, wheezing -: Gradual, This evening Asthma History: childhood onset, history of frequent attac, history of prior ED visit Severity: moderate Context: ran out of meds Associated Symptoms: none Treatments Prior to Arrival: inhaled bronchodilator - Related Data Previous Rx's Medication Instructions Recorded Last Taken Type Fluticasone/Salmeterol [Advair 1 puff IH BID #1 disk.w.dev 07/09/19 Unknown Rx Diskus 250-50 mcg] levoFLOXacin [Levaquin] 750 mg PO QDAY #5 tablet 07/09/19 Unknown Rx predniSONE [Deltasone] 50 mg PO QDAY #5 tab 05/28/20 Unknown Rx Albuterol Mdi (or & Nicu Only) 2 puff IH QID PRN #1 inh 12/29/20 Unknown Rx [ProAir HFA Inhaler] Ipratropium/Albuterol Sulfate 1 ampul IH Q4HR #90 ampul.neb 12/29/20 Unknown Rx [DUONEB *Not for PRN Use*] Prednisone [predniSONE 10 mg 10 mg PO .TAPER #21 tab.ds.pk 12/29/20 Unknown Rx (6-Day Pack, 21 Tabs)] ALBUTEROL NEB's [Proventil 0.083% 3 ml IH TID PRN #75 ml 01/28/21 Unknown Rx NEBS] Albuterol Sulfate [Proair 90 mcg IH Q4HR #1 aer.pw.bas 01/28/21 Unknown Rx Digihaler] Benzonatate [Tessalon Perles] 100 mg PO Q8HR #30 capsule 01/28/21 Unknown Rx Cetirizine HCl [Zyrtec 10mg tab] 10 mg PO DAILY #30 tablet 01/28/21 Unknown Rx Doxycycline Hyclate 100 mg PO Q12H #20 capsule 01/28/21 Unknown Rx Ibuprofen [Motrin] 800 mg PO Q8HR PRN #30 tablet 01/28/21 Unknown Rx Albuterol Mdi (or & Nicu Only) 2 puff IH QID PRN #8.5 gram 02/21/21 Unknown Rx [ProAir HFA Inhaler] predniSONE [Deltasone] 3 tab PO QDAY 3 Days #9 tab 02/21/21 Unknown Rx Allergies Allergy/AdvReac Type Severity Reaction Status Date / Time No Known Allergies Allergy Verified 12/29/20 02:51 ED Review of Systems ROS: Stated complaint: ASTHMA ATTACK Other details as noted in HPI Comment: All other systems reviewed and negative Constitutional: denies: chills, fever, malaise Respiratory: shortness of breath, wheezing. denies: cough Cardiovascular: chest pain (Chest tightness brenda he needs more air) Gastrointestinal: denies: abdominal pain, nausea Neurological: denies: headache ED Past Medical Hx - Past Medical History Previous Medical History?: Yes Hx Hypertension: No Hx CVA: No Hx Heart Attack/AMI: No Hx Congestive Heart Failure: No Hx Diabetes: No Hx Deep Vein Thrombosis: No Hx Pulmonary Embolism: No Hx GERD: No Hx Liver Disease: No Hx Renal Disease: No Hx Sickle Cell Disease: No Hx Arthritis: No Hx Headaches / Migraines: No Hx Seizures: No Hx Kidney Stones: No Hx Psychiatric Treatment: No Hx Asthma: Yes Hx COPD: No Hx Tuberculosis: No Hx Dementia: No Hx HIV: No - Surgical History Past Surgical History?: Yes Hx Coronary Stent: No Hx Open Heart Surgery: No Hx Pacemaker: No Hx Internal Defibrillator: No Hx Cholecystectomy: No Hx Appendectomy: No Hx Breast Surgery: No Additional Surgical History: Testicle Torsion, twisted intestine - Social History Smoking Status: Never Smoker Substance Use Type: None - Medications Home Medications: Home Medications Medication Instructions Recorded Confirmed Last Taken Type Fluticasone/Salmeterol [Advair 1 puff IH BID #1 disk.w.dev 07/09/19 Unknown Rx Diskus 250-50 mcg] levoFLOXacin [Levaquin] 750 mg PO QDAY #5 tablet 07/09/19 Unknown Rx predniSONE [Deltasone] 50 mg PO QDAY #5 tab 05/28/20 Unknown Rx Albuterol Mdi (or & Nicu Only) 2 puff IH QID PRN #1 inh 12/29/20 Unknown Rx [ProAir HFA Inhaler] Ipratropium/Albuterol Sulfate 1 ampul IH Q4HR #90 ampul.neb 12/29/20 Unknown Rx [DUONEB *Not for PRN Use*] Prednisone [predniSONE 10 mg 10 mg PO .TAPER #21 tab.ds.pk 12/29/20 Unknown Rx (6-Day Pack, 21 Tabs)] ALBUTEROL NEB's [Proventil 0.083% 3 ml IH TID PRN #75 ml 01/28/21 Unknown Rx NEBS] Albuterol Sulfate [Proair 90 mcg IH Q4HR #1 aer.pw.bas 01/28/21 Unknown Rx Digihaler] Benzonatate [Tessalon Perles] 100 mg PO Q8HR #30 capsule 01/28/21 Unknown Rx Cetirizine HCl [Zyrtec 10mg tab] 10 mg PO DAILY #30 tablet 01/28/21 Unknown Rx Doxycycline Hyclate 100 mg PO Q12H #20 capsule 01/28/21 Unknown Rx Ibuprofen [Motrin] 800 mg PO Q8HR PRN #30 tablet 01/28/21 Unknown Rx Albuterol Mdi (or & Nicu Only) 2 puff IH QID PRN #8.5 gram 02/21/21 Unknown Rx [ProAir HFA Inhaler] predniSONE [Deltasone] 3 tab PO QDAY 3 Days #9 tab 02/21/21 Unknown Rx ED Physical Exam - General Limitations: No Limitations General appearance: alert, in no apparent distress, other (Speaking full sentences) - Head Head exam: Present: atraumatic, normocephalic - Eye Eye exam: Present: normal appearance - ENT ENT exam: Present: mucous membranes moist - Neck Neck exam: Present: normal inspection - Respiratory Respiratory exam: Present: wheezes, prolonged expiratory, other (Inspiratory expiratory wheezes). Absent: rales, rhonchi, accessory muscle use, decreased breath sounds - Cardiovascular Cardiovascular Exam: Present: regular rate, normal rhythm, normal heart sounds. Absent: systolic murmur, diastolic murmur, rubs, gallop - GI/Abdominal GI/Abdominal exam: Present: soft, normal bowel sounds. Absent: distended, tenderness, guarding, rebound - Rectal Rectal exam: Present: deferred - Extremities Exam Extremities exam: Present: normal inspection - Neurological Exam Neurological exam: Present: alert, oriented X3 - Psychiatric Psychiatric exam: Present: normal affect, normal mood - Skin Skin exam: Present: warm, dry, intact, normal color. Absent: rash ED Course Vital Signs 02/21/21 02/21/21 03:36 04:26 Temperature 97.6 F Pulse Rate 83 Pulse Rate [ 76 Bilateral Throughout] Respiratory 16 Rate Respiratory 16 Rate [Bilateral Throughout] Blood Pressure 121/69 [Left] O2 Sat by Pulse 98 Oximetry ED Medical Decision Making - Medical Decision Making Acute asthma exacerbation: Mr. Taylor received continuous nebulizer therapy of albuterol and Atrovent. Received p.o. prednisone in emergency department. Prescribed prednisone burst therapy as well as albuterol MDI. Patient is ready for discharge. He has_discharge documentation and prescriptions. Critical care attestation.: If time is entered above; I have spent that time in minutes in the direct care of this critically ill patient, excluding procedure time. ED Disposition Clinical Impression: Asthma exacerbation Disposition: 01 HOME / SELF CARE / HOMELESS Is pt being admited?: No Does the pt Need Aspirin: No Condition: Stable Instructions: Asthma Attack Prescriptions: predniSONE [Deltasone] 3 tab PO QDAY 3 Days #9 tab Albuterol Mdi (or & Nicu Only) [ProAir HFA Inhaler] 2 puff IH QID PRN #8.5 gram PRN Reason: Shortness Of Breath Referrals: JESSICA GEORGE MD [Staff Physician] - 3-5 Days
[2021-02-21 06:18] VITALS: BP 133/60
== END 2021-02-21 06:27 | disposition home or self-care (01) ==
LOC: ED 03:34
DX: J45.901 Unspecified asthma with (acute) exacerbation (principal); Z98.890 Other specified postprocedural states
CPT/HCPCS: 94640; 99283; J7512; 94644

== ENCOUNTER 2021-05-18 10:52 | Emergency (ER) | payer SELFPAY ==
[2021-05-18 11:48] VITALS: BP 130/69
[2021-05-18] MEDS ORDERED: dexAMETHasone 20 MG/5 ML VIAL IV ONE (13:46)
[2021-05-18] MEDS ORDERED: ALBUTEROL 2.5 MG/3 ML NEBU IH ONE (13:46)
[2021-05-18] MEDS ORDERED: IPRATROPIUM 0.02% NEBU 2.5 ML IH ONE (13:46)
--- NOTE | 2021-05-18 13:55 | Emergency Department Report ---
ED Asthma HPI - General Chief Complaint: Adult Asthma Stated Complaint: ASTHMA Time Seen by Provider: 05/18/21 13:43 Source: patient Mode of arrival: Ambulatory Limitations: No Limitations - History of Present Illness Initial Comments: 26 y/o male comes in for asthma flare up. Asthma has been flaring up for 2 months. Yesterday ran out of medication. Currently on Advair 500 mcg and albuterol. Has not been vaccinated for flu or covid. Has not been tested. Having nasal congestion and running nose. No f/c, no diarrhea. No PCP, NKDA. MD Complaint: shortness of breath, wheezing Onset/Timin -: days(s) (yesterday ran out of medication), month(s) Asthma History: childhood onset Severity: severe Context: ran out of meds Associated Symptoms: dry cough. denies: fever, chest pain Treatments Prior to Arrival: inhaled bronchodilator, inhaled steroid - Related Data Current Asthma Therapy: inhaled bronchodilator, inhaled steroid Previous Rx's Medication Instructions Recorded Last Taken Type Fluticasone/Salmeterol [Advair 1 puff IH BID #1 disk.w.dev 07/09/19 Unknown Rx Diskus 250-50 mcg] levoFLOXacin [Levaquin] 750 mg PO QDAY #5 tablet 07/09/19 Unknown Rx Albuterol Mdi (or & Nicu Only) 2 puff IH QID PRN #1 inh 12/29/20 Unknown Rx [ProAir HFA Inhaler] Ipratropium/Albuterol Sulfate 1 ampul IH Q4HR #90 ampul.neb 12/29/20 Unknown Rx [DUONEB *Not for PRN Use*] Prednisone [predniSONE 10 mg 10 mg PO .TAPER #21 tab.ds.pk 12/29/20 Unknown Rx (6-Day Pack, 21 Tabs)] ALBUTEROL NEB's [Proventil 0.083% 3 ml IH TID PRN #75 ml 01/28/21 Unknown Rx NEBS] Albuterol Sulfate [Proair 90 mcg IH Q4HR #1 aer.pw.bas 01/28/21 Unknown Rx Digihaler] Benzonatate [Tessalon Perles] 100 mg PO Q8HR #30 capsule 01/28/21 Unknown Rx Cetirizine HCl [Zyrtec 10mg tab] 10 mg PO DAILY #30 tablet 01/28/21 Unknown Rx Doxycycline Hyclate 100 mg PO Q12H #20 capsule 01/28/21 Unknown Rx Ibuprofen [Motrin] 800 mg PO Q8HR PRN #30 tablet 01/28/21 Unknown Rx predniSONE [Deltasone] 3 tab PO QDAY 3 Days #9 tab 02/21/21 Unknown Rx Albuterol Mdi (or & Nicu Only) 2 puff IH QID PRN #8.5 gram 05/18/21 Unknown Rx [ProAir HFA Inhaler] predniSONE [Deltasone] 50 mg PO QDAY #5 tab 05/18/21 Unknown Rx Allergies Allergy/AdvReac Type Severity Reaction Status Date / Time No Known Allergies Allergy Verified 05/18/21 11:48 ED Review of Systems ROS: Stated complaint: ASTHMA Other details as noted in HPI Comment: All other systems reviewed and negative ED Past Medical Hx - Past Medical History Hx Hypertension: No Hx CVA: No Hx Heart Attack/AMI: No Hx Congestive Heart Failure: No Hx Diabetes: No Hx Deep Vein Thrombosis: No Hx Pulmonary Embolism: No Hx GERD: No Hx Liver Disease: No Hx Renal Disease: No Hx Sickle Cell Disease: No Hx Arthritis: No Hx Headaches / Migraines: No Hx Seizures: No Hx Kidney Stones: No Hx Psychiatric Treatment: No Hx Asthma: Yes Hx COPD: No Hx Tuberculosis: No Hx Dementia: No Hx HIV: No - Surgical History Hx Coronary Stent: No Hx Open Heart Surgery: No Hx Pacemaker: No Hx Internal Defibrillator: No Hx Cholecystectomy: No Hx Appendectomy: No Hx Breast Surgery: No Additional Surgical History: Testicle Torsion, twisted intestine - Social History Smoking Status: Never Smoker Substance Use Type: None - Medications Home Medications: Home Medications Medication Instructions Recorded Confirmed Last Taken Type Fluticasone/Salmeterol [Advair 1 puff IH BID #1 disk.w.dev 07/09/19 Unknown Rx Diskus 250-50 mcg] levoFLOXacin [Levaquin] 750 mg PO QDAY #5 tablet 07/09/19 Unknown Rx Albuterol Mdi (or & Nicu Only) 2 puff IH QID PRN #1 inh 12/29/20 Unknown Rx [ProAir HFA Inhaler] Ipratropium/Albuterol Sulfate 1 ampul IH Q4HR #90 ampul.neb 12/29/20 Unknown Rx [DUONEB *Not for PRN Use*] Prednisone [predniSONE 10 mg 10 mg PO .TAPER #21 tab.ds.pk 12/29/20 Unknown Rx (6-Day Pack, 21 Tabs)] ALBUTEROL NEB's [Proventil 0.083% 3 ml IH TID PRN #75 ml 01/28/21 Unknown Rx NEBS] Albuterol Sulfate [Proair 90 mcg IH Q4HR #1 aer.pw.bas 01/28/21 Unknown Rx Digihaler] Benzonatate [Tessalon Perles] 100 mg PO Q8HR #30 capsule 01/28/21 Unknown Rx Cetirizine HCl [Zyrtec 10mg tab] 10 mg PO DAILY #30 tablet 01/28/21 Unknown Rx Doxycycline Hyclate 100 mg PO Q12H #20 capsule 01/28/21 Unknown Rx Ibuprofen [Motrin] 800 mg PO Q8HR PRN #30 tablet 01/28/21 Unknown Rx predniSONE [Deltasone] 3 tab PO QDAY 3 Days #9 tab 02/21/21 Unknown Rx Albuterol Mdi (or & Nicu Only) 2 puff IH QID PRN #8.5 gram 05/18/21 Unknown Rx [ProAir HFA Inhaler] predniSONE [Deltasone] 50 mg PO QDAY #5 tab 05/18/21 Unknown Rx ED Physical Exam - General Limitations: No Limitations General appearance: alert, in no apparent distress - Head Head exam: Present: atraumatic, normocephalic - Eye Eye exam: Present: normal appearance - ENT ENT exam: Present: mucous membranes moist - Respiratory Respiratory exam: Present: wheezes, rhonchi, prolonged expiratory - Cardiovascular Cardiovascular Exam: Present: regular rate - Rectal Rectal exam: Present: deferred - Extremities Exam Extremities exam: Present: normal inspection, full ROM - Back Exam Back exam: Present: normal inspection - Neurological Exam Neurological exam: Present: alert, oriented X3, normal gait - Psychiatric Psychiatric exam: Present: normal affect, normal mood - Skin Skin exam: Present: warm, dry, intact, normal color. Absent: rash ED Course Vital Signs 05/18/21 11:47 Temperature 97.8 F Pulse Rate 98 H Respiratory 18 Rate Blood Pressure 130/69 [Left] O2 Sat by Pulse 100 Oximetry - Reevaluation(s) Reevaluation #1: 05/18/21 15:18 Patient reports he feels somewhat better. Lungs are clear to auscultation by this provider. ED Medical Decision Making - Radiology Data Radiology results: report reviewed, image reviewed XRay Report Signed Patient: ENEDELIA DE LOS SANTOS#: [id number] : 1995 Acct:[id number] Age/Sex: 26 / M ADM Date: 05/18/21 Loc: ED Attending Dr: Ordering Physician: SAWYER RAMSEY Date of Service: 05/18/21 Procedure(s): XR chest routine 2V Accession Number(s): [id number] cc: SAWYER RAMSEY Fluoro Time In Minutes: CHEST 2 VIEWS INDICATION: sob,cough and rales. COMPARISON: 01/28/2021 FINDINGS: Support devices: None. Heart: Within normal limits. Lungs/pleura: No acute air space or interstitial disease. No pneumothorax. Additional findings: None. IMPRESSION: Unremarkable chest films. No change since 01/28/2021. Signer Name: Jaime Sinha Jr, MD Signed: 05/18/2021 2:10 PM Workstation Name: [id number] Transcribed By: TTR Dictated By: JAIME SINHA JR, MD Electronically Authenticated By: JAIME SINHA JR, MD Signed Date/Time: 05/18/21 1410 DD/ 1409 TD/TT: - Medical Decision Making 26 y/o male comes in for asthma flare up. Asthma has been flaring up for 2 months. Yesterday ran out of medication. Currently on Advair 500 mcg and albuterol. Has not been vaccinated for flu or covid. Has not been tested. Having nasal congestion and running nose. No f/c, no diarrhea. No PCP, NKDA. Albuterol 10 mcg, dexa 10mg and atrovent 1 mg. CXR . Patient be discharged home on a refill feel of albuterol inhaler. Prednisone Dosepak. Referral to a primary care provider and sound technician. Patient is encouraged to continue with using of his Advair. Chest x-ray was negative. Critical care attestation.: If time is entered above; I have spent that time in minutes in the direct care of this critically ill patient, excluding procedure time. ED Disposition Clinical Impression: Asthma exacerbation Disposition: 01 HOME / SELF CARE / HOMELESS Is pt being admited?: No Does the pt Need Aspirin: No Condition: Stable Instructions: Asthma, Adult, [id number] Additional Instructions: Chest x-ray is negative for any acute findings. Continue with your Advair complete your prednisone pack continue with your albuterol follow-up with your primary care provider and a sound technician. Prescriptions: predniSONE [Deltasone] 50 mg PO QDAY #5 tab Albuterol Mdi (or & Nicu Only) [ProAir HFA Inhaler] 2 puff IH QID PRN #8.5 gram PRN Reason: Shortness Of Breath Referrals: PRIMARY CARE, [Primary Care Provider] - 3-5 Days FREDERICK LEÓN MD [Staff Physician] - 3-5 Days JESSICA GEORGE MD [Staff Physician] - 3-5 Days Forms: Work/School Release Form(ED) Time of Disposition: 15:11
--- NOTE | 2021-05-18 14:14 | XRay Report ---
CHEST 2 VIEWS INDICATION: sob,cough and rales. COMPARISON: 01/28/2021 FINDINGS: Support devices: None. Heart: Within normal limits. Lungs/pleura: No acute air space or interstitial disease. No pneumothorax. Additional findings: None. IMPRESSION: Unremarkable chest films. No change since 01/28/2021. Signer Name: Jaime Sinha Jr, MD Signed: 05/18/2021 2:10 PM Workstation Name: [id number]
== END 2021-05-18 15:24 | disposition home or self-care (01) ==
LOC: ED 10:52
DX: J45.901 Unspecified asthma with (acute) exacerbation (principal)
CPT/HCPCS: 71046; 96374; 99283; J1100

== ENCOUNTER 2021-06-18 22:06 | Emergency (ER) | payer SELFPAY ==
[2021-06-18 22:57] VITALS: BP 138/94
== END 2021-06-20 00:49 | disposition left against medical advice (07) ==
LOC: ED 22:06
DX: J45.909 Unspecified asthma, uncomplicated (principal); Z53.21 Procedure and treatment not carried out due to patient leaving prior to being seen by health care provider

== ENCOUNTER 2021-06-21 21:35 | Emergency (ER) | payer SELFPAY ==
[2021-06-22] MEDS ORDERED: IPRATROPIUM/ALBUTEROL SULFATE 3 ML AMPUL.NEB IH ONE (00:05)
[2021-06-22] MEDS ORDERED: methylPREDNISolone Sod Succinate 125 MG/2 ML INJ IM ONE (00:05)
--- NOTE | 2021-06-22 01:38 | Emergency Department Report ---
- General Chief Complaint: Adult Asthma Stated Complaint: ASTHMA Source: patient, EMS Mode of arrival: Ambulatory Limitations: No Limitations - History of Present Illness Initial Comments: Patient is a 26-year-old -Cuban male with a history of asthma who presents to the ED with complaint of acute onset persistent nasal and sinus congestion, persistent dry cough, chest tightness, shortness of breath and wheezing for the last 1 week. Patient states that he has been using his albuterol inhaler with no relief. Patient stated that his symptoms got worse in the last 2 days such that despite using his albuterol inhaler that shortness of breath and wheezing or chest tightness have worsened. Patient denies fever, chills, dizziness, syncope, chest pain, nausea and vomiting, diaphoresis, sore t hroat, back pain, neck pain, change in vision or abdominal pain. MD Complaint: cough, rhinorrhea, nasal congestion, other (Shortness of breath and wheezing) -: Sudden, week(s) (1) Severity: moderate Severity scale (0 -10): 3 Quality: dull, aching Consistency: intermittent Improves With: nothing Worsens With: nothing Associated Symptoms: denies other symptoms, rhinorrhea, nasal congestion, chest pain, shortness of breath. denies: fever, chills, diaphoresis, headache, sore throat, abdominal pain, nausea, vomiting, diarrhea, dysuria, confusion, right sweats, weight loss, hoarseness, ear pain Treatments Prior to Arrival: none - Related Data Previous Rx's Medication Instructions Recorded Last Taken Type Fluticasone/Salmeterol [Advair 1 puff IH BID #1 disk.w.dev 07/09/19 Unknown Rx Diskus 250-50 mcg] levoFLOXacin [Levaquin] 750 mg PO QDAY #5 tablet 07/09/19 Unknown Rx Albuterol Mdi (or & Nicu Only) 2 puff IH QID PRN #1 inh 12/29/20 Unknown Rx [ProAir HFA Inhaler] Ipratropium/Albuterol Sulfate 1 ampul IH Q4HR #90 ampul.neb 12/29/20 Unknown Rx [DUONEB *Not for PRN Use*] Doxycycline Hyclate 100 mg PO Q12H #20 capsule 01/28/21 Unknown Rx Ibuprofen [Motrin] 800 mg PO Q8HR PRN #30 tablet 01/28/21 Unknown Rx predniSONE [Deltasone] 3 tab PO QDAY 3 Days #9 tab 02/21/21 Unknown Rx Albuterol Mdi (or & Nicu Only) 2 puff IH QID PRN #8.5 gram 05/18/21 Unknown Rx [ProAir HFA Inhaler] predniSONE [Deltasone] 50 mg PO QDAY #5 tab 05/18/21 Unknown Rx ALBUTEROL NEB's [Proventil 0.083% 3 ml IH TID PRN #75 ml 06/22/21 Unknown Rx NEBS] Albuterol Sulfate [Proair 90 mcg IH Q4HR #1 aer.pw.bas 06/22/21 Unknown Rx Digihaler] Benzonatate [Tessalon Perles] 100 mg PO Q8HR #30 capsule 06/22/21 Unknown Rx Cetirizine HCl [Zyrtec 10mg tab] 10 mg PO DAILY #30 tablet 06/22/21 Unknown Rx Montelukast [Singulair] 10 mg PO QPM #30 tablet 06/22/21 Unknown Rx Prednisone [predniSONE 10 mg 10 mg PO .TAPER #21 tab.ds.pk 06/22/21 Unknown Rx (6-Day Pack, 21 Tabs)] Allergies Allergy/AdvReac Type Severity Reaction Status Date / Time No Known Allergies Allergy Verified 05/18/21 11:48 ED Review of Systems ROS: Stated complaint: ASTHMA Other details as noted in HPI Constitutional: denies: chills, fever Eyes: denies: eye pain, eye discharge, vision change ENT: congestion. denies: ear pain, throat pain Respiratory: cough, shortness of breath, wheezing Cardiovascular: denies: chest pain, palpitations Endocrine: no symptoms reported Gastrointestinal: denies: abdominal pain, nausea, diarrhea Genitourinary: denies: urgency, dysuria Musculoskeletal: denies: back pain, joint swelling, arthralgia Skin: denies: rash, lesions Neurological: denies: headache, weakness, paresthesias Psychiatric: denies: anxiety, depression Hematological/Lymphatic: denies: easy bleeding, easy bruising ED Past Medical Hx - Past Medical History Previous Medical History?: Yes Hx Hypertension: No Hx CVA: No Hx Heart Attack/AMI: No Hx Congestive Heart Failure: No Hx Diabetes: No Hx Deep Vein Thrombosis: No Hx Pulmonary Embolism: No Hx GERD: No Hx Liver Disease: No Hx Renal Disease: No Hx Sickle Cell Disease: No Hx Arthritis: No Hx Headaches / Migraines: No Hx Seizures: No Hx Kidney Stones: No Hx Psychiatric Treatment: No Hx Asthma: Yes Hx COPD: No Hx Tuberculosis: No Hx Dementia: No Hx HIV: No - Surgical History Past Surgical History?: Yes Hx Coronary Stent: No Hx Open Heart Surgery: No Hx Pacemaker: No Hx Internal Defibrillator: No Hx Cholecystectomy: No Hx Appendectomy: No Hx Breast Surgery: No Additional Surgical History: Testicle Torsion, twisted intestine - Social History Smoking Status: Never Smoker Substance Use Type: None - Medications Home Medications: Home Medications Medication Instructions Recorded Confirmed Last Taken Type Fluticasone/Salmeterol [Advair 1 puff IH BID #1 disk.w.dev 07/09/19 Unknown Rx Diskus 250-50 mcg] levoFLOXacin [Levaquin] 750 mg PO QDAY #5 tablet 07/09/19 Unknown Rx Albuterol Mdi (or & Nicu Only) 2 puff IH QID PRN #1 inh 12/29/20 Unknown Rx [ProAir HFA Inhaler] Ipratropium/Albuterol Sulfate 1 ampul IH Q4HR #90 ampul.neb 12/29/20 Unknown Rx [DUONEB *Not for PRN Use*] Doxycycline Hyclate 100 mg PO Q12H #20 capsule 01/28/21 Unknown Rx Ibuprofen [Motrin] 800 mg PO Q8HR PRN #30 tablet 01/28/21 Unknown Rx predniSONE [Deltasone] 3 tab PO QDAY 3 Days #9 tab 02/21/21 Unknown Rx Albuterol Mdi (or & Nicu Only) 2 puff IH QID PRN #8.5 gram 05/18/21 Unknown Rx [ProAir HFA Inhaler] predniSONE [Deltasone] 50 mg PO QDAY #5 tab 05/18/21 Unknown Rx ALBUTEROL NEB's [Proventil 0.083% 3 ml IH TID PRN #75 ml 06/22/21 Unknown Rx NEBS] Albuterol Sulfate [Proair 90 mcg IH Q4HR #1 aer.pw.bas 06/22/21 Unknown Rx Digihaler] Benzonatate [Tessalon Perles] 100 mg PO Q8HR #30 capsule 06/22/21 Unknown Rx Cetirizine HCl [Zyrtec 10mg tab] 10 mg PO DAILY #30 tablet 06/22/21 Unknown Rx Montelukast [Singulair] 10 mg PO QPM #30 tablet 06/22/21 Unknown Rx Prednisone [predniSONE 10 mg 10 mg PO .TAPER #21 tab.ds.pk 06/22/21 Unknown Rx (6-Day Pack, 21 Tabs)] ED Physical Exam - General Limitations: No Limitations General appearance: alert, in no apparent distress - Head Head exam: Present: atraumatic, normocephalic, normal inspection - Eye Eye exam: Present: normal appearance, PERRL, EOMI Pupils: Present: normal accommodation - ENT ENT exam: Present: normal orophraynx, mucous membranes moist, TM's normal bilaterally, normal external ear exam, other (Grossly congested nasal passages;) - Neck Neck exam: Present: normal inspection, full ROM. Absent: tenderness - Respiratory Respiratory exam: Present: wheezes (Mildly diffuse coarse wheezes throughout). Absent: normal lung sounds bilaterally, respiratory distress, rales, rhonchi, chest wall tenderness, accessory muscle use, decreased breath sounds, prolonged expiratory - Cardiovascular Cardiovascular Exam: Present: regular rate, normal rhythm, normal heart sounds. Absent: systolic murmur, diastolic murmur, rubs, gallop - GI/Abdominal GI/Abdominal exam: Present: soft, normal bowel sounds. Absent: tenderness, hyperactive bowel sounds, hypoactive bowel sounds, organomegaly, mass - Extremities Exam Extremities exam: Present: normal inspection, full ROM, normal capillary refill. Absent: tenderness, pedal edema, joint swelling - Back Exam Back exam: Present: normal inspection, full ROM. Absent: tenderness, CVA tenderness (R), CVA tenderness (L), muscle spasm, paraspinal tenderness, vertebral tenderness - Neurological Exam Neurological exam: Present: alert, oriented X3, CN II-XII intact, normal gait, reflexes normal - Psychiatric Psychiatric exam: Present: normal affect, normal mood - Skin Skin exam: Present: warm, dry, intact, normal color. Absent: rash ED Course Vital Signs 06/21/21 06/22/21 21:38 02:27 Temperature 98.7 F Pulse Rate 78 76 Respiratory 18 14 Rate Blood Pressure 148/92 123/79 [Right] O2 Sat by Pulse 98 98 Oximetry ED Medical Decision Making - Radiology Data Radiology results: report reviewed, image reviewed [facility] [address] [place] [address] XRay Report Signed Patient: ENEDELIA DE LOS SANTOS R#: [id number] : 1995 Acct:[id number] Age/Sex: 26 / M ADM Date: 06/21/21 Loc: ED Attending Dr: Ordering Physician: SAWYER MAK Date of Service: 06/22/21 Procedure(s): XR chest 1V ap Accession Number(s): [id number] cc: SAWYER MAK Fluoro Time In Minutes: CHEST 1 VIEW INDICATION: ASTHMA, COUGH, DYSPNEA. COMPARISON: 05/18/2021 FINDINGS: Support devices: None. Heart: Normal. Lungs/Pleura: There is mild diffuse peribronchial cuffing. Mild increased reticular markings are noted. No pleural abnormality. IMPRESSION: 1. Lower airways disease. This could be reactive or infectious in etiology. Signer Name: Alexandru Trevino MD Signed: 06/22/2021 1:36 AM Workstation Name: [id number] Transcribed By: HAYLEY Dictated By: Alexandru Trevino MD Electronically Authenticated By: Alexandru Trevino MD Signed Date/Time: 06/22/21135 DD/ 4 TD/TT: - Medical Decision Making This is a 26-year-old -Cuban male with a history of asthma who presents to the ED with complaint of acute onset persistent nasal and sinus congestion, persistent dry cough, chest tightness, shortness of breath and wheezing for the last 1 week. Patient states that he has been using his albuterol inhaler with no relief. Patient stated that his symptoms got worse in the last 2 days such that despite using his albuterol inhaler that shortness of breath and wheezing or chest tightness have worsened. In the ED, patient is alert and oriented x3 and is not in any distress. Patient was treated in the ED with DuoNeb, also received Solu-Medrol 125 mg intramuscular injection in the ED. Chest x-ray showed no acute cardiopulmonary abnormalities or pneumonitis on reevaluation, patient wheezing resolved, patient felt better and was discharged home on medications. Patient was advised to return to the ED immediately if symptoms get worse. Patient was advised to follow-up with his primary care physician in 7 to 10 days for reevaluation. - Differential Diagnosis Asthma; bronchitis; pneumonia; URI Critical care attestation.: If time is entered above; I have spent that time in minutes in the direct care of this critically ill patient, excluding procedure time. ED Disposition Clinical Impression: Acute bronchitis with asthma with acute exacerbation, Shortness of breath Disposition: 01 HOME / SELF CARE / HOMELESS Is pt being admited?: No Does the pt Need Aspirin: No Condition: Stable Instructions: Shortness of Breath, Adult, [id number], Cough, Adult, [id number], Acute Bronchitis, Adult, [id number], Asthma, Adult, [id number] Additional Instructions: Chest x-ray showed no acute cardiopulmonary abnormalities or pneumonitis. Therefore take medications with food, drink plenty of fluids and follow-up with your primary care physician in 7 to 10 days for reevaluation. Return to the ED immediately if symptoms get worse. Prescriptions: Prednisone [predniSONE 10 mg (6-Day Pack, 21 Tabs)] 10 mg PO .TAPER #21 tab.ds.pk Albuterol Sulfate [Proair Digihaler] 90 mcg IH Q4HR #1 aer.pw.bas ALBUTEROL NEB's [Proventil 0.083% NEBS] 3 ml IH TID PRN #75 ml PRN Reason: Wheezing Montelukast [Singulair] 10 mg PO QPM #30 tablet Benzonatate [Tessalon Perles] 100 mg PO Q8HR #30 capsule Cetirizine HCl [Zyrtec 10mg tab] 10 mg PO DAILY #30 tablet Referrals: [facility] [Provider Group] - 7-10 days Time of Disposition: 01:35 Print Language: SOUTH AFRICAN
--- NOTE | 2021-06-22 01:40 | XRay Report ---
CHEST 1 VIEW INDICATION: ASTHMA, COUGH, DYSPNEA. COMPARISON: 05/18/2021 FINDINGS: Support devices: None. Heart: Normal. Lungs/Pleura: There is mild diffuse peribronchial cuffing. Mild increased reticular markings are note d. No pleural abnormality. IMPRESSION: 1. Lower airways disease. This could be reactive or infectious in etiology. Signer Name: Aelxandru Trevino MD Signed: 06/22/2021 1:36 AM Workstation Name: [id number]
[2021-06-22 02:28] VITALS: BP 123/79
== END 2021-06-22 02:29 | disposition home or self-care (01) ==
LOC: ED 21:35
DX: J45.901 Unspecified asthma with (acute) exacerbation (principal); Z79.899 Other long term (current) drug therapy
CPT/HCPCS: 71045; 94640; 96372; 99284; J2930

== ENCOUNTER 2021-11-22 10:01 | Emergency (ER) | payer SELFPAY ==
[2021-11-22 10:26] VITALS: BP 122/76
[2021-11-22] MEDS ORDERED: IPRATROPIUM 0.02% NEBU 2.5 ML IH ONE (10:29)
[2021-11-22] MEDS ORDERED: ALBUTEROL 2.5 MG/3 ML NEBU IH ONE (10:29)
[2021-11-22] MEDS ORDERED: methylPREDNISolone Sod Succinate 125 MG/2 ML INJ IM ONE (10:30)
--- NOTE | 2021-11-22 10:35 | Emergency Department Report ---
Minor Respiratory - HPI Chief Complaint: Dyspnea/Respdistress Stated Complaint: ASTHMA/HEADACHE/DRY COUGH Time Seen by Provider: 11/22/21 10:29 ED Review of Systems ROS: Stated complaint: ASTHMA/HEADACHE/DRY COUGH Other details as noted in HPI Comment: All other systems reviewed and negative ED Past Medical Hx - Past Medical History Previous Medical History?: Yes Hx Hypertension: No Hx CVA: No Hx Heart Attack/AMI: No Hx Congestive Heart Failure: No Hx Diabetes: No Hx Deep Vein Thrombosis: No Hx Pulmonary Embolism: No Hx GERD: No Hx Liver Disease: No Hx Renal Disease: No Hx Sickle Cell Disease: No Hx Arthritis: No Hx Headaches / Migraines: No Hx Seizures: No Hx Kidney Stones: No Hx Psychiatric Treatment: No Hx Asthma: Yes Hx COPD: No Hx Tuberculosis: No Hx Dementia: No Hx HIV: No - Surgical History Past Surgical History?: Yes Hx Coronary Stent: No Hx Open Heart Surgery: No Hx Pacemaker: No Hx Internal Defibrillator: No Hx Cholecystectomy: No Hx Appendectomy: No Hx Breast Surgery: No Additional Surgical History: Testicle Torsion, twisted intestine - Family History Family history: no significant - Social History Smoking Status: Never Smoker Substance Use Type: None - Medications Home Medications: Home Medications Medication Instructions Recorded Confirmed Last Taken Type Fluticasone/Salmeterol [Advair 1 puff IH BID #1 disk.w.dev 07/09/19 Unknown Rx Diskus 250-50 mcg] levoFLOXacin [Levaquin] 750 mg PO QDAY #5 tablet 07/09/19 Unknown Rx Ipratropium/Albuterol Sulfate 1 ampul IH Q4HR #90 ampul.neb 12/29/20 Unknown Rx [DUONEB *Not for PRN Use*] ALBUTEROL NEB's [Proventil 0.083% 3 ml IH TID PRN #75 ml 11/22/21 Unknown Rx NEBS] Albuterol Sulfate [Proair 90 mcg IH Q4HR #1 aer.pw.bas 11/22/21 Unknown Rx Digihaler] Cetirizine HCl [Zyrtec 10mg tab] 10 mg PO DAILY #30 tablet 11/22/21 Unknown Rx Fluticasone [Flonase] 1 spray NS QDAY #1 bottle 11/22/21 Unknown Rx Montelukast [Singulair] 10 mg PO QPM #30 tablet 11/22/21 Unknown Rx predniSONE [Deltasone] 20 mg PO DAILY #5 tablet 11/22/21 Unknown Rx Minor Respiratory Exam - Exam General: Vital signs noted. No distress. Alert and acting appropriately. HEENT: Yes Moist Mucous Membranes, No Pharyngeal Erythema, No Pharyngeal Exudates, No Rhinorrhea, No Conjuctival Injection, No Frontal Tenderness, No Maxillary Tenderness Ear: Neither TM Bulge, Neither TM Erythema, Neither EAC Pain, Neither EAC Discharge Neck: Yes Supple, No Adenopathy Lungs: Yes Good Air Exchange, Yes Wheezes, No Ronchi, No Stridor, No Cough, No Labored Respirations, No Retractions, No Use of Accessory Muscles, No Other Abnormal Lung Sounds Heart: Yes Regular, No Murmur Abdomen: Yes Normal Bowel Sounds, No Tenderness, No Peritoneal Signs Skin: No Rash, No Edema Neurologic: Alert and oriented, no deficits. Musculoskeletal: Unremarkable. ED Course Vital Signs 11/22/21 10:23 Temperature 98.2 F Pulse Rate 75 Respiratory 14 Rate Blood Pressure 122/76 O2 Sat by Pulse 97 Oximetry Critical care attestation.: If time is entered above; I have spent that time in minutes in the direct care of this critically ill patient, excluding procedure time. ED Disposition Clinical Impression: Asthma exacerbation Disposition: HOME / SELF CARE / HOMELESS Is pt being admited?: No Does the pt Need Aspirin: No Condition: Stable Instructions: Asthma, Adult Additional Instructions: meds as ordered today follow up with pcp stay well hydrated Referrals: VENU SHARMA MD [Primary Care Provider] - 3-5 Days JESSICA GEORGE MD [Staff Physician] - 3-5 Days Forms: Work/School Release Form(ED) Time of Disposition: 12:28
--- NOTE | 2021-11-22 12:10 | XRay Report ---
CHEST 1 VIEW 11/22/2021 11:57 AM INDICATION / CLINICAL INFORMATION: sob. COMPARISON: 06/22/2021. FINDINGS: SUPPORT DEVICES: None. HEART / MEDIASTINUM: No significant abnormality. LUNGS / PLEURA: No significant pulmonary or pleural abnormality. No pneumothorax. ADDITIONAL FINDINGS: No significant additional findings. IMPRESSION: No acute abnormality. Signer Name: Nigel Daniels MD Signed: 11/22/2021 12:06 PM Workstation Name: [id number]
== END 2021-11-22 12:00 | disposition home or self-care (01) ==
LOC: ED 10:01
DX: J45.901 Unspecified asthma with (acute) exacerbation (principal)
CPT/HCPCS: 71045; 94640; 96372; 99283; J2930; 94644

== ENCOUNTER 2021-12-25 12:27 | Emergency (ER) | payer SELFPAY ==
[2021-12-25] MEDS ORDERED: ALBUTEROL 2.5 MG/3 ML NEBU IH ONE (13:00)
[2021-12-25] MEDS ORDERED: methylPREDNISolone Sod Succinate 125 MG/2 ML INJ IV ONE (13:00)
[2021-12-25] MEDS ORDERED: SODIUM CHLORIDE 0.9% 1000 ML 1,000 ML IV ONE (13:00)
[2021-12-25] MEDS ORDERED: IPRATROPIUM 0.02% NEBU 2.5 ML IH ONE (13:00)
[2021-12-25 13:26] LABS: Basophils # (Auto) 0.1 K/mm3 (0.0-0.1); Basophils % (Auto) 1.2 % (0.0-1.8); Eosinophils # (Auto) 0.6 K/mm3 (0.0-0.4); Eosinophils % (Auto) 9.9 % (0.0-4.3); Hematocrit 44.4 % (35.5-45.6); Lymphocytes # (Auto) 0.9 K/mm3 (1.2-5.4); Lymphocytes % (Auto) 16.4 % (13.4-35.0); Mean Corpuscular HGB Conc 32 % (32-34); Monocytes # (Auto) 0.3 K/mm3 (0.0-0.8); Monocytes % (Auto) 5.3 % (0.0-7.3); Platelet Count 221 K/mm3 (140-440); Red Blood Count 6.42 M/mm3 (3.65-5.03); Red Cell Distribution Width 18.1 % (13.2-15.2)
[2021-12-25 13:27] LABS: Mean Corpuscular Volume 69 fl (84-94)
--- NOTE | 2021-12-25 13:32 | XRay Report ---
CHEST 1 VIEW 12/25/2021 1:08 PM INDICATION / CLINICAL INFORMATION: Asthma. COMPARISON: 11/22/2021 FINDINGS: SUPPORT DEVICES: None. HEART / MEDIASTINUM: No significant abnormality. LUNGS / PLEURA: No significant pulmonary or pleural abnormality. No pneumothorax. ADDITIONAL FINDINGS: No significant additional findings. IMPRESSION: 1. No acute findings. Signer Name: Maximilian Mir MD Signed: 12/25/2021 1:28 PM Workstation Name: [email or web address]
[2021-12-25 13:42] LABS: Alanine Aminotransferase 12 units/L (7-56); Albumin 4.5 g/dL (3.9-5); BUN/Creatinine Ratio 9; Blood Urea Nitrogen 7 mg/dL (9-20); Calcium 9.2 mg/dL (8.4-10.2); Hemolysis Index 7
--- NOTE | 2021-12-25 14:32 | Emergency Department Report ---
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, symptoms improved ran out of inhalers Complaint: "asthma attack" -: days(s) Asthma History: childhood onset, history of frequent attac Severity: moderate Context: none known, ran out of meds Associated Symptoms: dry cough Treatments Prior to Arrival: inhaled bronchodilator - Related Data Current Asthma Therapy: none Previous Rx's Medication Instructions Recorded Last Taken Type ALBUTEROL NEB's [Proventil 0.083% 3 ml IH TID PRN #75 ml 11/22/21 Unknown Rx NEBS] Albuterol Sulfate [Proair 90 mcg IH Q4HR #1 aer.pw.bas 11/22/21 Unknown Rx Digihaler] Fluticasone [Flonase] 1 spray NS QDAY #1 bottle 11/22/21 Unknown Rx Montelukast [Singulair] 10 mg PO QPM #30 tablet 11/22/21 Unknown Rx predniSONE [Deltasone] 20 mg PO DAILY #5 tablet 11/22/21 Unknown Rx Allergies Allergy/AdvReac Type Severity Reaction Status Date / Time No Known Allergies Allergy Verified 12/25/21 12:42 ED Review of Systems ROS: Stated complaint: ASTHMA Other details as noted in HPI Constitutional: denies: chills, fever Eyes: denies: eye pain, eye discharge, vision change ENT: denies: ear pain, throat pain Respiratory: denies: cough, shortness of breath, wheezing Cardiovascular: denies: chest pain, palpitations Endocrine: no symptoms reported Gastrointestinal: denies: abdominal pain, nausea, diarrhea Genitourinary: denies: urgency, dysuria Musculoskeletal: denies: back pain, joint swelling, arthralgia Skin: denies: rash, lesions Neurological: denies: headache, weakness, paresthesias Psychiatric: denies: anxiety, depression Hematological/Lymphatic: denies: easy bleeding, easy bruising ED Past Medical Hx - Past Medical History Previous Medical History?: Yes Hx Hypertension: No Hx CVA: No Hx Heart Attack/AMI: No Hx Congestive Heart Failure: No Hx Diabetes: No Hx Deep Vein Thrombosis: No Hx Pulmonary Embolism: No Hx GERD: No Hx Liver Disease: No Hx Renal Disease: No Hx Sickle Cell Disease: No Hx Arthritis: No Hx Headaches / Migraines: No Hx Seizures: No Hx Kidney Stones: No Hx Psychiatric Treatment: No Hx Asthma: Yes Hx COPD: No Hx Tuberculosis: No Hx Dementia: No Hx HIV: No - Surgical History Hx Coronary Stent: No Hx Open Heart Surgery: No Hx Pacemaker: No Hx Internal Defibrillator: No Hx Cholecystectomy: No Hx Appendectomy: No Hx Breast Surgery: No Additional Surgical History: Testicle Torsion, twisted intestine - Social History Smoking Status: Never Smoker Substance Use Type: None - Medications Home Medications: Home Medications Medication Instructions Recorded Confirmed Last Taken Type ALBUTEROL NEB's [Proventil 0.083% 3 ml IH TID PRN #75 ml 11/22/21 Unknown Rx NEBS] Albuterol Sulfate [Proair 90 mcg IH Q4HR #1 aer.pw.bas 11/22/21 Unknown Rx Digihaler] Fluticasone [Flonase] 1 spray NS QDAY #1 bottle 11/22/21 Unknown Rx Montelukast [Singulair] 10 mg PO QPM #30 tablet 11/22/21 Unknown Rx predniSONE [Deltasone] 20 mg PO DAILY #5 tablet 11/22/21 Unknown Rx ED Physical Exam - General Limitations: No Limitations General appearance: alert, in no apparent distress - Head Head exam: Present: atraumatic, normocephalic - Eye Eye exam: Present: normal appearance - ENT ENT exam: Present: mucous membranes moist - Neck Neck exam: Present: normal inspection - Respiratory Respiratory exam: Present: normal lung sounds bilaterally, wheezes. Absent: respiratory distress - Cardiovascular Cardiovascular Exam: Present: regular rate, normal rhythm. Absent: systolic murmur, diastolic murmur, rubs, gallop - GI/Abdominal GI/Abdominal exam: Present: soft, normal bowel sounds - Rectal Rectal exam: Present: deferred - Extremities Exam Extremities exam: Present: normal inspection - Back Exam Back exam: Present: normal inspection - Neurological Exam Neurological exam: Present: alert, oriented X3 - Psychiatric Psychiatric exam: Present: normal affect, normal mood - Skin Skin exam: Present: warm, dry, intact, normal color. Absent: rash ED Course Vital Signs 12/25/21 12:39 Pulse Rate 74 Respiratory 18 Rate Blood Pressure 158/82 [Right] O2 Sat by Pulse 99 Oximetry ED Medical Decision Making - Lab Data Result diagrams: 12/25/21 13:05 12/25/21 13:05 Critical care attestation.: If time is entered above; I have spent that time in minutes in the direct care of this critically ill patient, excluding procedure time. ED Disposition Clinical Impression: Asthma exacerbation Disposition: HOME / SELF CARE / HOMELESS Is pt being admited?: No Does the pt Need Aspirin: No Condition: Stable Instructions: Asthma, Adult Referrals: PRIMARY CARE, [Primary Care Provider] - 3-5 Days
[2021-12-25 17:35] VITALS: BP 145/96
== END 2021-12-25 16:34 | disposition home or self-care (01) ==
LOC: ED 12:27
DX: J45.901 Unspecified asthma with (acute) exacerbation (principal); Z79.899 Other long term (current) drug therapy
CPT/HCPCS: 36415; 71045; 80053; 85025; 94640; 96360; 99284; J7030

== ENCOUNTER 2022-01-11 13:29 | Emergency (ER) | payer SELFPAY ==
[2022-01-11 14:36] VITALS: BP 145/94
[2022-01-11] MEDS ORDERED: predniSONE 20 MG TAB PO ONE (14:36)
[2022-01-11] MEDS ORDERED: ALBUTEROL 2.5 MG/3 ML NEBU IH ONE (14:36)
[2022-01-11] MEDS ORDERED: guaiFENesin 200 MG TAB PO ONE (14:37)
--- NOTE | 2022-01-11 14:59 | Emergency Department Report ---
ED General Adult HPI - General Chief complaint: Upper Respiratory Infection Stated complaint: COUGH, WHEEZING, ASTHMA Time Seen by Provider: 01/11/22 14:41 Source: patient Mode of arrival: Ambulatory Limitations: No Limitations - History of Present Illness Initial comments: 26-year-old male past medical history of asthma reports to the ER with an asthma flareup. Patient reports he has been coughing for 2 weeks and last few days he has been using his inhaler without much relief. Patient reports he is also run out of his medication for his nebulizer machine. Patient reports his cough is nonproductive. Patient denies fever. Patient reports no other acute signs or symptoms at this time. - Related Data Previous Rx's Medication Instructions Recorded Last Taken Type ALBUTEROL NEB's [Proventil 0.083% 3 ml IH TID PRN #75 ml 11/22/21 Unknown Rx NEBS] Albuterol Sulfate [Proair 90 mcg IH Q4HR #1 aer.pw.bas 11/22/21 Unknown Rx Digihaler] Fluticasone [Flonase] 1 spray NS QDAY #1 bottle 11/22/21 Unknown Rx Montelukast [Singulair] 10 mg PO QPM #30 tablet 11/22/21 Unknown Rx predniSONE [Deltasone] 20 mg PO DAILY #5 tablet 11/22/21 Unknown Rx ALBUTEROL NEB's [Proventil 0.083% 2.5 mg IH TID PRN #30 neb 12/25/21 Unknown Rx NEBS] Albuterol Mdi (or & Nicu Only) 2 puff IH QID PRN #8.5 gram 12/25/21 Unknown Rx [ProAir HFA Inhaler] Albuterol Sulfate [Albuterol 0.63% 0.63 mg IH Q4HR PRN 30 Days #90 ml 01/11/22 Unknown Rx NEBS] Albuterol Sulfate [Proventil Hfa] 6.7 gm IH Q4HR 30 Days #1 container 01/11/22 Unknown Rx predniSONE [Deltasone] 40 mg PO QDAY 6 Days #12 tab 01/11/22 Unknown Rx Allergies Allergy/AdvReac Type Severity Reaction Status Date / Time No Known Allergies Allergy Verified 01/11/22 14:36 ED Review of Systems ROS: Stated complaint: COUGH, WHEEZING, ASTHMA Other details as noted in HPI Comment: All other systems reviewed and negative Respiratory: cough, wheezing Cardiovascular: denies: chest pain ED Past Medical Hx - Past Medical History Previous Medical History?: Yes Hx Hypertension: No Hx CVA: No Hx Heart Attack/AMI: No Hx Congestive Heart Failure: No Hx Diabetes: No Hx Deep Vein Thrombosis: No Hx Pulmonary Embolism: No Hx GERD: No Hx Liver Disease: No Hx Renal Disease: No Hx Sickle Cell Disease: No Hx Arthritis: No Hx Headaches / Migraines: No Hx Seizures: No Hx Kidney Stones: No Hx Psychiatric Treatment: No Hx Asthma: Yes Hx COPD: No Hx Tuberculosis: No Hx Dementia: No Hx HIV: No - Surgical History Hx Coronary Stent: No Hx Open Heart Surgery: No Hx Pacemaker: No Hx Internal Defibrillator: No Hx Cholecystectomy: No Hx Appendectomy: No Hx Breast Surgery: No Additional Surgical History: Testicle Torsion, twisted intestine - Social History Smoking Status: Never Smoker Substance Use Type: None - Medications Home Medications: Home Medications Medication Instructions Recorded Confirmed Last Taken Type ALBUTEROL NEB's [Proventil 0.083% 3 ml IH TID PRN #75 ml 11/22/21 Unknown Rx NEBS] Albuterol Sulfate [Proair 90 mcg IH Q4HR #1 aer.pw.bas 11/22/21 Unknown Rx Digihaler] Fluticasone [Flonase] 1 spray NS QDAY #1 bottle 11/22/21 Unknown Rx Montelukast [Singulair] 10 mg PO QPM #30 tablet 11/22/21 Unknown Rx predniSONE [Deltasone] 20 mg PO DAILY #5 tablet 11/22/21 Unknown Rx ALBUTEROL NEB's [Proventil 0.083% 2.5 mg IH TID PRN #30 neb 12/25/21 Unknown Rx NEBS] Albuterol Mdi (or & Nicu Only) 2 puff IH QID PRN #8.5 gram 12/25/21 Unknown Rx [ProAir HFA Inhaler] Albuterol Sulfate [Albuterol 0.63% 0.63 mg IH Q4HR PRN 30 Days #90 ml 01/11/22 Unknown Rx NEBS] Albuterol Sulfate [Proventil Hfa] 6.7 gm IH Q4HR 30 Days #1 container 01/11/22 Unknown Rx predniSONE [Deltasone] 40 mg PO QDAY 6 Days #12 tab 01/11/22 Unknown Rx ED Physical Exam - General Limitations: No Limitations General appearance: alert, in no apparent distress - Head Head exam: Present: atraumatic, normocephalic - Eye Eye exam: Present: normal appearance - ENT ENT exam: Present: mucous membranes moist - Neck Neck exam: Present: normal inspection - Respiratory Respiratory exam: Present: normal lung sounds bilaterally, wheezes. Absent: respiratory distress, rales, rhonchi, stridor, accessory muscle use - Cardiovascular Cardiovascular Exam: Present: regular rate, normal rhythm. Absent: systolic murmur, diastolic murmur, rubs, gallop - GI/Abdominal GI/Abdominal exam: Present: soft, normal bowel sounds - Rectal Rectal exam: Present: deferred - Extremities Exam Extremities exam: Present: normal inspection - Back Exam Back exam: Present: normal inspection - Neurological Exam Neurological exam: Present: alert, oriented X3 - Psychiatric Psychiatric exam: Present: normal affect, normal mood - Skin Skin exam: Present: warm, dry, intact, normal color. Absent: rash ED Course Vital Signs 01/11/22 01/11/22 14:35 15:05 Temperature 98.8 F Pulse Rate 84 Pulse Rate [ 86 Bilateral] Respiratory 14 Rate Respiratory 16 Rate [Bilateral ] Blood Pressure 145/94 [Left] O2 Sat by Pulse 98 Oximetry ED Medical Decision Making - Radiology Data Radiology results: report reviewed, image reviewed [address] [address] XRay Report Signed Patient: ENEDELIA DE LOS SANTOS R#: [id number] : 1995 Acct:[id number] Age/Sex: 26 / M ADM Date: 01/11/22 Loc: ED Attending Dr: Ordering Physician: ISAIAH HOLLIS NP Date of Service: 01/11/22 Procedure(s): XR chest 1V ap Accession Number(s): [id number] cc: ISAIAH HOLLIS NP Fluoro Time In Minutes: CHEST 1 VIEW 01/11/2022 3:00 PM INDICATION / CLINICAL INFORMATION: cough , asthma flare. COMPARISON: 12/25/2021 FINDINGS: SUPPORT DEVICES: None. HEART / MEDIASTINUM: No significant abnormality. LUNGS / PLEURA: No significant pulmonary or pleural abnormality. No pneumothorax. ADDITIONAL FINDINGS: No significant additional findings. IMPRESSION: 1. No acute findings. Signer Name: Brad Stovall MD Signed: 01/11/2022 3:05 PM Workstation Name: [id number] Transcribed By: FROILAN Dictated By: Brad Sotvall MD Electronically Authenticated By: Brad Stovall MD Signed Date/Time: 01/11/22 150 DD/ 03 TD/TT: - Medical Decision Making 26-year-old male past medical history of asthma reports to the ER with an asthma flareup. Patient reports he has been coughing for 2 weeks and last few days he has been using his inhaler without much relief. Patient reports he is also run out of his medication for his nebulizer machine. Patient reports his cough is nonproductive. Patient denies fever. Patient reports no other acute signs or symptoms at this time. On physical exam patient has wheezing bilaterally in all lung perez. Nonlabored breathing noted. None respiratory distress noted. No other acute signs or symptoms noted physical exam. Patient received breathing treatment as well as oral steroids here in the ER. All reevaluation patient has a decrease in wheezing in all lung perez. Patient reports feeling better. Patient discharged home with short course of steroids oral. As well as inhaler of albuterol. As well as nebulizer machine medication. Patient informed to follow his primary care provider for asthma management. Patient informed if symptoms are to get worse to report back to the ER. Patient agrees with plan of care and verbalized understanding. No further evaluation at this time. Patient stable for discharge home. Vital Signs 01/11/22 01/11/22 14:35 15:05 Temperature 98.8 F Pulse Rate 84 Pulse Rate [ 86 Bilateral] Respiratory 14 Rate Respiratory 16 Rate [Bilateral ] Blood Pressure 145/94 [Left] O2 Sat by Pulse 98 Oximetry Critical care attestation.: If time is entered above; I have spent that time in minutes in the direct care of this critically ill patient, excluding procedure time. ED Disposition Clinical Impression: Asthma flare Qualifiers: Asthma severity: mild Asthma persistence: intermittent Qualified Code(s): J45.21 - Mild intermittent asthma with (acute) exacerbation Disposition: 01 HOME / SELF CARE / HOMELESS Is pt being admited?: No Condition: Stable Instructions: Asthma, Adult, Cough, Adult, [id number] Prescriptions: Albuterol Sulfate [Albuterol 0.63% NEBS] 0.63 mg IH Q4HR PRN 30 Days #90 ml PRN Reason: Wheezing predniSONE [Deltasone] 40 mg PO QDAY 6 Days #12 tab Albuterol Sulfate [Proventil Hfa] 6.7 gm IH Q4HR 30 Days #1 container Referrals: JESSICA GEORGE MD [Primary Care Provider] - 3-5 Days Forms: Work/School Release Form(ED)
--- NOTE | 2022-01-11 15:09 | XRay Report ---
CHEST 1 VIEW 01/11/2022 3:00 PM INDICATION / CLINICAL INFORMATION: cough , asthma flare. COMPARISON: 12/25/2021 FINDINGS: SUPPORT DEVICES: None. HEART / MEDIASTINUM: No significant abnormality. LUNGS / PLEURA: No significant pulmonary or pleural abnormality. No pneumothorax. ADDITIONAL FINDINGS: No significant additional findings. IMPRESSION: 1. No acute findings. Signer Name: Brad Stovall MD Signed: 01/11/2022 3:05 PM Workstation Name: [id number]
== END 2022-01-11 15:58 | disposition home or self-care (01) ==
LOC: ED 13:29
DX: J45.998 Other asthma (principal); Z79.899 Other long term (current) drug therapy
CPT/HCPCS: 71045; 94640; 94644; 99283